=== PATIENT | female | born 1970 | race Caucasian/White ===

== ENCOUNTER 2018-03-11 11:43 | Emergency (ER) | payer BC ==
--- NOTE | 2018-03-11 12:45 | RAD REPORT ---
EXAM DESCRIPTION: RAD - Foot Left 3 View - 03/11/2018 12:35 pm CLINICAL HISTORY: PAIN COMPARISON: No comparisons FINDINGS: A single screw is present the proximal aspect of the first metatarsal. No evidence of hard gilliland loosening or infection. No acute fracture or dislocation seen. Tiny posterior calcaneal spur.
--- NOTE | 2018-03-11 13:00 | RAD REPORT ---
EXAM DESCRIPTION: CT - CTHCSPWOC - 03/11/2018 12:49 pm CLINICAL HISTORY: Trauma, head and neck injury. fall head injury COMPARISON: CT HEAD CSPINE MPR WO CONTRAST dated 11/07/2014 TECHNIQUE: Axial 5 mm thick images of the head were obtained. Axial 2 mm thick images of the cervical spine were obtained with sagittal and coronal reconstruction images generated and reviewed. All CT scans are performed using dose optimization technique as appropriate and may include automated exposure control or mA/KV adjustment according to patient size. FINDINGS: CT HEAD WITHOUT CONTRAST: No acute hemorrhage, hydrocephalus or extra-axial collection is identified.No areas of brain edema or midline shift. Moderate mucoperiosteal thickening affects the right maxillary antrum.The calvarium is intact. CT CERVICAL SPINE WITHOUT CONTRAST: No fracture or subluxation.No prevertebral soft tissues swelling is identified. IMPRESSION: No acute intracranial or cervical spine findings.
--- NOTE | 2018-03-11 13:14 | ER ---
Nurse's Notes [facility] Name: Patsy Danielle Age: 47 yrs Sex: Female : 1970 Arrival Date: 03/11/2018 Time: 11:47 Bed 17 Private MD: Colby Manuel E Diagnosis: Headache;Contusion of other part of head;Contusion of left foot Presentation: 03/11 11:58 Presenting complaint: Patient states: "I have chronic migraines, and I've had a aj1 migraine that I haven't been able to get rid of for about a week now. And on Monday I rolled my ankle and fell against the wall. I hit my shoulder and my face. It just occurred to me today that I passed out from the blow that I took" Bruising noted to left cheek and left shoulder. Reports vomiting 3-4 times daily for the past week. Transition of care: patient was not received from another setting of care. Onset of symptoms was February 04, 2018. Risk Assessment: Do you want to hurt yourself or someone else? Patient reports no desire to harm self or others. Initial Sepsis Screen: Does the patient meet any 2 criteria? No. Patient's initial sepsis screen is negative. Does the patient have a suspected source of infection? No. Patient's initial sepsis screen is negative. Care prior to arrival: None. 11:58 Method Of Arrival: Ambulatory [facility] 11:58 Acuity: VICK 3 aj1 Triage Assessment: 12:04 Headache History: The patient has had previous headaches and this one is different than aj1 previous episodes. General: Appears in no apparent distress. uncomfortable, Behavior is calm, cooperative, appropriate for age. Pain: Complains of pain in forehead, right sikhism and left sikhism Pain does not radiate. Pain currently is 9 out of 10 on a pain scale. Quality of pain is described as "grinding" Pain began March 06, Also complains of nausea. Neuro: Level of Consciousness is awake, alert, obeys commands, Oriented to person, place, time, situation, Speech is normal, Facial symmetry appears normal, Reports blurred vision dizziness, headache. Cardiovascular: Patient's skin is warm and dry. Respiratory: Airway is patent Respiratory effort is even, unlabored, Respiratory pattern is regular, symmetrical. 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 - Hysterectomy aj1 Historical: - Allergies: 12:04 Ceftriaxone Sodium; aj1 12:04 Cephalexin Monohydrate; aj1 12:04 Codeine; aj1 12:04 Erythromycin; aj1 12:04 hydroxyzine HCl; aj1 12:04 Hydroxyzine Pamoate; aj1 12:04 metoclopramide HCl; aj1 12:04 Morphine; aj1 12:04 Naproxen; aj1 12:04 Ondansetron HCl; aj1 12:04 Phenergan; aj1 12:04 QUINOLONES; aj1 12:04 Sulfa (Sulfonamide Antibiotics); aj1 12:04 SUMATRIPTAN; aj1 12:04 Sumatriptan Succinate; aj1 12:04 Tramadol HCl; aj1 12:04 [id number] Antimigraine Agents; aj1 - Home Meds: 12:04 Ambien 10 mg Oral tab 1 tab nightly [Active]; Esgic Oral three times a day [Active]; aj1 Norflex Oral 100 mg twice a day [Active]; Stadol NS Nasal 1 spray q4-6 hrs prn [Active]; Toprol XL 100 mg am and 150 mg pm Oral Tb24 [Active]; Valium 10 mg Oral tab 1 tab 3 times per day [Active]; - PMHx: 12:04 Angina; Anxiety; Back pain; CHF; Chronic pain; Migraines; palpitations; Pneumonia; aj1 - PSHx: 12:04 back surgery x4; Cholecystectomy; Hysterectomy; Appendectomy; Carpal Tunnel Repair; aj1 "surgery to get rid of migraines"; - Immunization history:: Flu vaccine is up to date. - Social history:: Smoking status: Patient uses tobacco products, smokes 1.5 packs per day, States that she quit one week ago. - Ebola Screening: : Patient denies travel to an Ebola-affected area in the 21 days before illness onset. Screenin:07 Abuse screen: Denies threats or abuse. Nutritional screening: No deficits noted. em Tuberculosis screening: No symptoms or risk factors identified. Fall Risk None identified. Assessment: 12:37 General: Appears in no apparent distress. uncomfortable, Behavior is cooperative, em Reports "having hx of migraines, fell on Monday and hit face and left shoulder, reports LOC x 2, just wanted to make sure it wasn't a normal migraine". Pain: Complains of pain in face and forehead Pain currently is 9 out of 10 on a pain scale. Neuro: Level of Consciousness is awake, alert, obeys commands, Oriented to person, place, time, situation, Moves all extremities. Gait is steady, Speech is normal, Facial symmetry appears normal, Intact. Cardiovascular: Capillary refill < 3 seconds Patient's skin is warm and dry. Respiratory: Airway is patent Respiratory effort is even, unlabored, Respiratory pattern is regular, symmetrical. GI: Abdomen is flat. Derm: Skin is intact, Bruising that is yellow, on left cheek and left shoulder. Injury Description: Head injury sustained to left cheek is closed, had loss of consciousness, was sustained 6 days ago. 13:00 Reassessment: Patient appears in no apparent distress at this time. I agree with above iw assessment by Rodolfo Tomlin LVN. Vital Signs: 12:04 BP 110 / 80; Pulse 65; Resp 18; Temp 98.1; Pulse Ox 98% on R/A; Weight 63.5 kg (R); aj1 Height 5 ft. 1 in. (154.94 cm) (R); Pain 9/10; 13:00 BP 107 / 75; Pulse 61; Resp 16; Pulse Ox 97% on R/A; em 12:04 Body Mass Index 26.45 (63.50 kg, 154.94 cm) aj1 ED Course: 11:47 Patient arrived in ED. mr 11:47 Colby Manuel MD is Private Physician. mr 12:01 Triage completed. aj1 12:04 Arm band placed on Patient placed in an exam room. aj1 12:10 Jaleel Green MD is Attending Physician. gs 12:16 Rodolfo Tomlin LVN is Primary Nurse. em 12:35 Foot Left 3 View XRAY In Process Unspecified. EDMS 12:49 CT Head C Spine In Process Unspecified. EDMS 12:50 CT completed. Patient tolerated procedure well. Patient moved back from CT. bq 13:07 Patient has correct armband on for positive identification. Bed in low position. Call em light in reach. 13:33 No provider procedures requiring assistance completed. Patient did not have IV access em during this emergency room visit. Administered Medications: No medications were administered Outcome: 13:13 Discharge ordered by . gs 13:33 Discharged to home ambulatory. em 13:33 Condition: good 13:33 Discharge instructions given to patient, Instructed on discharge instructions, follow up and referral plans. Demonstrated understanding of instructions, follow-up care. 13:35 Patient left the ED. em Signatures: Dispatcher [employer] Autumn Cowart RN RN aj1 Nuria Gama mr Eugenia, Rodolfo Worthy, COMMUNITY RECREATION PROGRAMMER COMMUNITY RECREATION PROGRAMMER em Dai Kirkland RN RN iw Starr, Gregory, MD MD gs
--- NOTE | 2018-03-11 13:14 | EDPHYS ---
Physician Documentation [facility] Name: Patsy Danielle Age: 47 yrs Sex: Female : 1970 Arrival Date: 03/11/2018 Time: 11:47 Bed 17 Private MD: Colby Manuel E ED Physician Jaleel Green HPI: 03/11 13:07 This 47 yrs old Female presents to ER via Ambulatory with complaints of gs Headache. 13:07 The patient complains of pain to the left christian. The patient describes the headache as gs throbbing. Onset: The symptoms/episode began/occurred 4 day(s) ago. Associated signs and symptoms: Pertinent negatives: altered mental status. Severity of symptoms: At its worst the pain was moderate, in the emergency department the pain is unchanged. Headache History: The patient has had previous headaches and this one is similar to previous episodes, and this one is more severe than previous episodes. The symptoms are alleviated by nothing. the symptoms are aggravated by nothing. The patient has experienced similar episodes in the past, chronically. 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 - Hysterectomy aj1 Historical: - Allergies: 12:04 Ceftriaxone Sodium; aj1 12:04 Cephalexin Monohydrate; aj1 12:04 Codeine; aj1 12:04 Erythromycin; aj1 12:04 hydroxyzine HCl; aj1 12:04 Hydroxyzine Pamoate; aj1 12:04 metoclopramide HCl; aj1 12:04 Morphine; aj1 12:04 Naproxen; aj1 12:04 Ondansetron HCl; aj1 12:04 Phenergan; aj1 12:04 QUINOLONES; aj1 12:04 Sulfa (Sulfonamide Antibiotics); aj1 12:04 SUMATRIPTAN; aj1 12:04 Sumatriptan Succinate; aj1 12:04 Tramadol HCl; aj1 12:04 [id number] Antimigraine Agents; aj1 - Home Meds: 12:04 Ambien 10 mg Oral tab 1 tab nightly [Active]; Esgic Oral three times a day [Active]; aj1 Norflex Oral 100 mg twice a day [Active]; Stadol NS Nasal 1 spray q4-6 hrs prn [Active]; Toprol XL 100 mg am and 150 mg pm Oral Tb24 [Active]; Valium 10 mg Oral tab 1 tab 3 times per day [Active]; - PMHx: 12:04 Angina; Anxiety; Back pain; CHF; Chronic pain; Migraines; palpitations; Pneumonia; aj1 - PSHx: 12:04 back surgery x4; Cholecystectomy; Hysterectomy; Appendectomy; Carpal Tunnel Repair; aj1 "surgery to get rid of migraines"; - Immunization history:: Flu vaccine is up to date. - Social history:: Smoking status: Patient uses tobacco products, smokes 1.5 packs per day, States that she quit one week ago. - Ebola Screening: : Patient denies travel to an Ebola-affected area in the 21 days before illness onset. ROS: 13:07 MS/extremity: Positive for fall hit face and hurt l foot, no loc. gs 13:07 All other systems are negative. Exam: 13:07 Eyes: Pupils equal round and reactive to light, extra-ocular motions intact. Lids and gs lashes normal. Conjunctiva and sclera are non-icteric and not injected. Cornea within normal limits. Periorbital areas with no swelling, redness, or edema. ENT: Nares patent. No nasal discharge, no septal abnormalities noted. Tympanic membranes are normal and external auditory canals are clear. Oropharynx with no redness, swelling, or masses, exudates, or evidence of obstruction, uvula midline. Mucous membranes moist. Neck: Trachea midline, no thyromegaly or masses palpated, and no cervical lymphadenopathy. Supple, full range of motion without nuchal rigidity, or vertebral point tenderness. No Meningismus. Chest/axilla: Normal chest wall appearance and motion. Nontender with no deformity. No lesions are appreciated. Cardiovascular: Regular rate and rhythm with a normal S1 and S2. No gallops, murmurs, or rubs. Normal PMI, no JVD. No pulse deficits. Respiratory: Lungs have equal breath sounds bilaterally, clear to auscultation and percussion. No rales, rhonchi or wheezes noted. No increased work of breathing, no retractions or nasal flaring. Abdomen/GI: Soft, non-tender, with normal bowel sounds. No distension or tympany. No guarding or rebound. No evidence of tenderness throughout. Back: No spinal tenderness. No costovertebral tenderness. Full range of motion. Skin: Warm, dry with normal turgor. Normal color with no rashes, no lesions, and no evidence of cellulitis. MS/ Extremity: Pulses equal, no cyanosis. Neurovascular intact. Full, normal range of motion. Neuro: Awake and alert, GCS 15, oriented to person, place, time, and situation. Cranial nerves II-XII grossly intact. Motor strength 5/5 in all extremities. Sensory grossly intact. Cerebellar exam normal. Normal gait. 13:07 Constitutional: The patient appears alert, awake. 13:07 Head/face: Noted is ecchymosis, that is mild, of the left cheek. 13:07 Musculoskeletal/extremity: Extremities: noted in the lateral side of left foot: ecchymosis, ROM: no acute changes, Pulses: are normal with no appreciated deficits. Vital Signs: 12:04 BP 110 / 80; Pulse 65; Resp 18; Temp 98.1; Pulse Ox 98% on R/A; Weight 63.5 kg (R); aj1 Height 5 ft. 1 in. (154.94 cm) (R); Pain 9/10; 13:00 BP 107 / 75; Pulse 61; Resp 16; Pulse Ox 97% on R/A; em 12:04 Body Mass Index 26.45 (63.50 kg, 154.94 cm) aj1 MDM: 12:18 Patient medically screened. 13:07 Differential diagnosis: migraine, head injury fracture. Data reviewed: vital signs, gs nurses notes. ED course: pt is allergic to standard migraine therapies has pain meds rx by pcp will refer to pcp for pain control non emergent medical condition. 03/11 12:19 Order name: CT Head C Spine; Complete Time: 13:01 03/11 12:19 Order name: Foot Left 3 View XRAY; Complete Time: 13:01 Administered Medications: No medications were administered Disposition: 03/11/18 13:13 Discharged to Home. Impression: Headache, Contusion of other part of head, Contusion of left foot. - Condition is Stable. - Discharge Instructions: General Headache Without Cause. - Medication Reconciliation Form, Thank You Letter, Antibiotic Education, Prescription Opioid Use form. - Follow up: Private Physician; When: 1 - 2 days; Reason: Re-evaluation by your physician. Signatures: Dispatcher [employer] Autumn Cowart RN RN aj1 Rodolfo Tomlin, LOCAL GOVERNMENT LEGISLATOR LOCAL GOVERNMENT LEGISLATOR em Jaleel Green MD MD gs Corrections: (The following items were deleted from the chart) 13:12 13:07 ED course: pt is allergic to standard migraine therapies has pain meds rx by dr louie tyler will refer to dr tyler for pain control non emergent medical condition. 13:35 13:13 03/11/2018 13:13 Discharged to Home. Impression: Headache; Contusion of other em part of head; Contusion of left foot. Condition is Stable. Forms are Medication Reconciliation Form, Thank You Letter, Antibiotic Education, Prescription Opioid Use. Follow up: Private Physician; When: 1 - 2 days; Reason: Re-evaluation by your physician.
[2018-03-11 13:46] VITALS: TEMP 98.1
[2018-03-11 13:47] VITALS: BP 107/75; O2SAT 97
== END 2018-03-11 13:35 | disposition home or self-care (01) ==
LOC: ER 11:43
DX: S00.83XA Contusion of other part of head, initial encounter (principal); S90.32XA Contusion of left foot, initial encounter; W18.39XA Other fall on same level, initial encounter; Y93.9 Activity, unspecified; Y92.9 Unspecified place or not applicable; Z88.1 Allergy status to other antibiotic agents; Z88.2 Allergy status to sulfonamides; Z88.3 Allergy status to other anti-infective agents; Z88.5 Allergy status to narcotic agent; Z88.8 Allergy status to other drugs, medicaments and biological substances; I50.9 Heart failure, unspecified; F41.9 Anxiety disorder, unspecified
CPT/HCPCS: 70450; 72125; 99284

== ENCOUNTER 2018-07-18 14:05 | Emergency (ER) | payer BC ==
[2018-07-18 16:29] LABS: Barbiturates POSITIVE (NEGATIVE); Benzodiazepines POSITIVE (NEGATIVE); Cocaine NEGATIVE (NEGATIVE); METHAMPHETAM NEGATIVE (NEGATIVE); Methadone NEGATIVE (NEGATIVE); Opiates NEGATIVE (NEGATIVE); Phencyclidine NEGATIVE (NEGATIVE); THC Cannibis NEGATIVE (NEGATIVE)
--- NOTE | 2018-07-18 16:42 | RAD REPORT ---
EXAM DESCRIPTION: CT - CTHCSPWOC - 07/18/2018 4:21 pm CLINICAL HISTORY: Trauma, head and neck injury. PAIN COMPARISON: Head C Spine Mpr Wo Con dated 03/11/2018; CT HEAD CSPINE MPR WO CONTRAST dated 11/07/2014 TECHNIQUE: Axial 5 mm thick images of the head were obtained. Axial 2 mm thick images of the cervical spine were obtained with sagittal and coronal reconstruction images generated and reviewed. All CT scans are performed using dose optimization technique as appropriate and may include automated exposure control or mA/KV adjustment according to patient size. FINDINGS: CT HEAD WITHOUT CONTRAST: No acute hemorrhage, hydrocephalus or extra-axial collection is identified.No areas of brain edema or midline shift. Moderate mucoperiosteal thickening involves the right maxillary antrum, right ethmoid air cells and r ight frontal sinus.The calvarium is intact. CT CERVICAL SPINE WITHOUT CONTRAST: No fracture or subluxation.No prevertebral soft tissues swelling is identified. IMPRESSION: No acute intracranial or cervical spine findings. Moderate right-sided sinus disease.
[2018-07-18 16:46] LABS: Urine Blood TRACE (NEG); Urine Glucose NEGATIVE (NEG); Urine Protein NEGATIVE (NEG); Urine Specific Gravity 1.025 (1.005-1.030); Urine pH 5.5 (5.0-7.0)
[2018-07-18 16:49] LABS: Urine Bacteria NONE SEEN /HPF (<20); Urine Culture Reflex Order NOT NEEDED; Urine RBC <5 /HPF (NONE SEEN)
--- NOTE | 2018-07-18 18:25 | ER ---
Nurse's Notes [facility] Name: Patsy Danielle Age: 47 yrs Sex: Female : 1970 Arrival Date: 07/18/2018 Time: 14:08 Bed 23 Private MD: Edy Suarez H Diagnosis: Acute sinusitis;Fall on same level, unspecified;Drug induced myotonia Presentation: 07/18 14:17 Presenting complaint: Patient states: Reports falling at home several times for past aj few days. Patient is awake and alert in triage. PEARRLA. Care prior to arrival: None. Mechanism of Injury: Fall from standing position. Trauma event details: Injury occurred in the [facility], Injury occurred: at home. Injury occurred: July 18, 2018. 14:17 Acuity: VICK 3 aj 14:17 Method Of Arrival: Wheelchair aj 17:26 Transition of care: patient was not received from another setting of care. Onset of tl3 symptoms. Risk Assessment: Do you want to hurt yourself or someone else?. Initial Sepsis Screen: Does the patient meet any 2 criteria? No. Patient's initial sepsis screen is negative. Does the patient have a suspected source of infection? No. Patient's initial sepsis screen is negative. 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 - Hysterectomy aj Trauma Activation: Not Applicable Physician: ED Physician; Name: ; Notified At: ; Arrived At: Physician: General Surgeon; Name: ; Notified At: ; Arrived At: Physician: Radiology; Name: ; Notified At: ; Arrived At: Physician: Respiratory; Name: ; Notified At: ; Arrived At: Physician: Lab; Name: ; Notified At: ; Arrived At: Historical: - Allergies: 14:21 Ceftriaxone Sodium; aj 14:21 Cephalexin Monohydrate; aj 14:21 Codeine; aj 14:21 Erythromycin; aj 14:21 hydroxyzine HCl; aj 14:21 Hydroxyzine Pamoate; aj 14:21 metoclopramide HCl; aj 14:21 Morphine; aj 14:21 Naproxen; aj 14:21 Ondansetron HCl; aj 14:21 Phenergan; aj 14:21 QUINOLONES; aj 14:21 Sulfa (Sulfonamide Antibiotics); aj 14:21 SUMATRIPTAN; aj 14:21 Sumatriptan Succinate; aj 14:21 Tramadol HCl; aj 14:21 [id number] Antimigraine Agents; aj - Home Meds: 14:21 Ambien 10 mg Oral tab 1 tab nightly [Active]; Esgic Oral three times a day [Active]; aj Norflex Oral 100 mg twice a day [Active]; Stadol NS Nasal 1 spray q4-6 hrs prn [Active]; Toprol XL 100 mg am and 150 mg pm Oral Tb24 [Active]; Valium 10 mg Oral tab 1 tab 3 times per day [Active]; - PMHx: 14:21 Angina; Anxiety; Back pain; CHF; Chronic pain; Migraines; palpitations; Pneumonia; aj - PSHx: 14:21 back surgery x4; Cholecystectomy; Hysterectomy; Appendectomy; Carpal Tunnel Repair; aj "surgery to get rid of migraines"; - Immunization history: Last tetanus immunization: - up to date. - Social history:: Smoking status: Patient/guardian denies using tobacco. - Ebola Screening: : Patient negative for fever greater than or equal to 101.5 degrees Fahrenheit, and additional compatible Ebola Virus Disease symptoms Patient denies exposure to infectious person Patient denies travel to an Ebola-affected area in the 21 days before illness onset No symptoms or risks identified at this time. Screenin:12 Abuse screen: Denies threats or abuse. Nutritional screening: No deficits noted. tl3 Tuberculosis screening: No symptoms or risk factors identified. Fall Risk Fall in past 12 months (25 points). Primary Survey: 14:21 A: Airway: patent. Breathing/Chest: Respiratory pattern: regular, Respiratory effort: aj spontaneous, unlabored, Breath sounds: clear, bilaterally. Circulation: Skin color: pink, Skin temperature: warm, dry. Disability Alert. Assessment: 14:17 General: Appears in no apparent distress. comfortable, Behavior is calm, cooperative, aj appropriate for age. Pain: Complains of pain in face and scalp. Neuro: Level of Consciousness is awake, alert, obeys commands, Oriented to person, place, time, situation, Appropriate for age Blow Down Helper are equal bilaterally Moves all extremities. Speech is normal, Facial symmetry appears normal, Pupils are PERRLA, Intact. Respiratory: Airway is patent Respiratory effort is even, unlabored, Respiratory pattern is regular, symmetrical. GI: Reports nausea. Derm: Skin is intact, is healthy with good turgor, Skin is pink, warm \\T\\ dry. normal. 17:23 Reassessment: Patient appears in no apparent distress at this time. No changes from tl3 previously documented assessment. Patient and/or family updated on plan of care and expected duration. Pain level reassessed. Patient is alert, oriented x 3, equal unlabored respirations, skin warm/dry/pink. pt placed in wheelchair, and in waiting room until parent comes and picks her up. Stressed letting admissions know when ride arrives and they will wheel her out to car, pt verbalized understanding. Vital Signs: 14:21 BP 98 / 76; Pulse 66; Resp 20; Temp 97.9; Pulse Ox 98% on R/A; Weight 68.04 kg; Height aj 5 ft. 1 in. (154.94 cm); 17:23 BP 117 / 65; Pulse 66; Resp 18; Pulse Ox 100% ; tl3 14:21 Body Mass Index 28.34 (68.04 kg, 154.94 cm) aj Asif Coma Score: 14:21 Eye Response: spontaneous(4). Verbal Response: oriented(5). Motor Response: obeys aj commands(6). Total: 15. Trauma Score (Adult): 14:21 Eye Response: spontaneous(1); Verbal Response: oriented(1); Motor Response: obeys aj commands(2); Systolic BP: > 89 mm Hg(4); Respiratory Rate: 10 to 29 per min(4); Asif Score: 15; Trauma Score: 12 ED Course: 14:08 Patient arrived in ED. mr 14:09 Edy Suarez DO is Private Physician. mr 14:19 Triage completed. aj 14:22 Arm band placed on left wrist. Patient placed in waiting room, in a wheelchair, Patient aj notified of wait time. 15:12 Viridiana Lehman, RN is Primary Nurse. tl3 15:12 Patient has correct armband on for positive identification. Bed in low position. Call tl3 light in reach. Side rails up X2. Pulse ox on. NIBP on. 15:12 No provider procedures requiring assistance completed. tl3 15:17 [facility] Dim[facility]C [facility]. snw 15:17 Elliott Lange MD is Attending Physician. snw 15:[address] via wheelchair. 16:23 CT Head C Spine In Process Unspecified. EDMS 17:23 Patient did not have IV access during this emergency room visit. tl3 17:54 Edy Suarez DO is Referral Physician. snw Administered Medications: No medications were administered Outcome: 17:23 Discharged to home via wheelchair. tl3 17:23 Condition: stable 17:23 Discharge instructions given to patient, Instructed on discharge instructions, follow up and referral plans. Demonstrated understanding of instructions, follow-up care, medications, Prescriptions given X 1. 17:55 Discharge ordered by MD. snw 17:55 Patient left the ED. tl3 Signatures: Dispatcher [employer] Kailey Rhodes, RN RN Brianna De Oliveira, JUDICIAL REPORTER-C JUDICIAL REPORTER-Elizabethw Jolie Gama ToreyValentin Viridiana Lehman, EVETTE RN tl3
--- NOTE | 2018-07-18 18:25 | EDPHYS ---
Physician Documentation [facility] Name: Patsy Danielle Age: 47 yrs Sex: Female : 1970 Arrival Date: 07/18/2018 Time: 14:08 Bed 23 Private MD: Edy Suarez H ED Physician Elliott Lange HPI: 07/18 17:04 This 47 yrs old Female presents to ER via Wheelchair with complaints of Fall snw Injury. 17:04 Details of fall: The patient fell from an upright position, while standing. Onset: The snw symptoms/episode began/occurred suddenly. Associated injuries: The patient sustained injury to the head, contusion. Severity of symptoms: At their worst the symptoms were moderate. The patient has experienced similar episodes in the past. It is unknown whether or not the patient has recently seen a physician. 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 - Hysterectomy aj Historical: - Allergies: 14:21 Ceftriaxone Sodium; aj 14:21 Cephalexin Monohydrate; aj 14:21 Codeine; aj 14:21 Erythromycin; aj 14:21 hydroxyzine HCl; aj 14:21 Hydroxyzine Pamoate; aj 14:21 metoclopramide HCl; aj 14:21 Morphine; aj 14:21 Naproxen; aj 14:21 Ondansetron HCl; aj 14:21 Phenergan; aj 14:21 QUINOLONES; aj 14:21 Sulfa (Sulfonamide Antibiotics); aj 14:21 SUMATRIPTAN; aj 14:21 Sumatriptan Succinate; aj 14:21 Tramadol HCl; aj 14:21 [id number] Antimigraine Agents; aj - Home Meds: 14:21 Ambien 10 mg Oral tab 1 tab nightly [Active]; Esgic Oral three times a day [Active]; aj Norflex Oral 100 mg twice a day [Active]; Stadol NS Nasal 1 spray q4-6 hrs prn [Active]; Toprol XL 100 mg am and 150 mg pm Oral Tb24 [Active]; Valium 10 mg Oral tab 1 tab 3 times per day [Active]; - PMHx: 14:21 Angina; Anxiety; Back pain; CHF; Chronic pain; Migraines; palpitations; Pneumonia; aj - PSHx: 14:21 back surgery x4; Cholecystectomy; Hysterectomy; Appendectomy; Carpal Tunnel Repair; aj "surgery to get rid of migraines"; - Immunization history: Last tetanus immunization: - up to date. - Social history:: Smoking status: Patient/guardian denies using tobacco. - Ebola Screening: : Patient negative for fever greater than or equal to 101.5 degrees Fahrenheit, and additional compatible Ebola Virus Disease symptoms Patient denies exposure to infectious person Patient denies travel to an Ebola-affected area in the 21 days before illness onset No symptoms or risks identified at this time. ROS: 17:03 Eyes: Negative for injury, pain, redness, and discharge, ENT: Negative for injury, snw pain, and discharge, Neck: Negative for injury, pain, and swelling, Cardiovascular: Negative for chest pain, palpitations, and edema, Respiratory: Negative for shortness of breath, cough, wheezing, and pleuritic chest pain, Abdomen/GI: Negative for abdominal pain, nausea, vomiting, diarrhea, and constipation, Back: Negative for injury and pain, : Negative for injury, bleeding, discharge, and swelling, Skin: Negative for injury, rash, and discoloration. 17:03 Constitutional: Positive for body aches. 17:03 MS/extremity: Positive for pain, of the right ankle. 17:03 Neuro: Positive for multiple falls, contusion to scalp. Exam: 17:03 Head/Face: Normocephalic, atraumatic. Eyes: Pupils equal round and reactive to light, snw extra-ocular motions intact. Lids and lashes normal. Conjunctiva and sclera are non-icteric and not injected. Cornea within normal limits. Periorbital areas with no swelling, redness, or edema. ENT: Nares patent. No nasal discharge, no septal abnormalities noted. Tympanic membranes are normal and external auditory canals are clear. Oropharynx with no redness, swelling, or masses, exudates, or evidence of obstruction, uvula midline. Mucous membranes moist. Neck: Trachea midline, no thyromegaly or masses palpated, and no cervical lymphadenopathy. Supple, full range of motion without nuchal rigidity, or vertebral point tenderness. No Meningismus. Chest/axilla: Normal chest wall appearance and motion. Nontender with no deformity. No lesions are appreciated. Cardiovascular: Regular rate and rhythm with a normal S1 and S2. No gallops, murmurs, or rubs. Normal PMI, no JVD. No pulse deficits. Respiratory: Lungs have equal breath sounds bilaterally, clear to auscultation and percussion. No rales, rhonchi or wheezes noted. No increased work of breathing, no retractions or nasal flaring. Abdomen/GI: Soft, non-tender, with normal bowel sounds. No distension or tympany. No guarding or rebound. No evidence of tenderness throughout. Back: No spinal tenderness. No costovertebral tenderness. Full range of motion. Skin: Warm, dry with normal turgor. Normal color with no rashes, no lesions, and no evidence of cellulitis. MS/ Extremity: Pulses equal, no cyanosis. Neurovascular intact. Full, normal range of motion. Neuro: Awake and alert, GCS 15, oriented to person, place, time, and situation. Cranial nerves II-XII grossly intact. Motor strength 5/5 in all extremities. Sensory grossly intact. Cerebellar exam normal. Normal gait. 17:03 Constitutional: The patient appears awake, unkempt, sluggish Vital Signs: 14:21 BP 98 / 76; Pulse 66; Resp 20; Temp 97.9; Pulse Ox 98% on R/A; Weight 68.04 kg; Height aj 5 ft. 1 in. (154.94 cm); 17:23 BP 117 / 65; Pulse 66; Resp 18; Pulse Ox 100% ; tl3 14:21 Body Mass Index 28.34 (68.04 kg, 154.94 cm) aj [place] Coma Score: 14:21 Eye Response: spontaneous(4). Verbal Response: oriented(5). Motor Response: obeys aj commands(6). Total: 15. Trauma Score (Adult): 14:21 Eye Response: spontaneous(1); Verbal Response: oriented(1); Motor Response: obeys aj commands(2); Systolic BP: > 89 mm Hg(4); Respiratory Rate: 10 to 29 per min(4); [place] Score: 15; Trauma Score: 12 MDM: 15:18 Patient medically screened. [facility] 07/18 15:47 Order name: Urine Drug Screen; Complete Time: 16:44 snw 07/18 15:47 Order name: Urine Microscopic Only; Complete Time: 16:53 snw 07/18 15:47 Order name: CT Head C Spine; Complete Time: 16:44 snw 07/18 15:47 Order name: Urine Test (obtain specimen); Complete Time: 16:00 snw 07/18 15:47 Order name: Urine Dipstick-Ancillary (obtain specimen); Complete Time: 16:00 snw 07/18 16:37 Order name: Urine Dipstick--Ancillary (enter results); Complete Time: 16:53 bd Administered Medications: No medications were administered Disposition: 07/19 13:54 Co-signature as Attending Physician, Elliott Lange MD I agree with the assessment and kdr plan of care. Disposition: 07/18/18 17:55 Discharged to Home. Impression: Acute sinusitis, Fall on same level, unspecified, Drug induced myotonia. - Condition is Stable. - Discharge Instructions: Head Injury, Adult, Fall Prevention in the Home, Sinusitis, Adult, What You Need To Know About Illegal Drug Use and Dependence, Youth, Fall Prevention in Hospitals, Adult. - Prescriptions for Clindamycin HCl 300 mg Oral Capsule - take 1 capsule by ORAL route every 6 hours for 10 days; 40 capsule. - Medication Reconciliation Form, Thank You Letter, Antibiotic Education, Prescription Opioid Use form. - Follow up: Edy Suarez DO; When: 2 - 3 days; Reason: Recheck today's complaints, Continuance of care, Re-evaluation by your physician. Signatures: Dispatcher [employer] Kailey Rhodes, Elliott Umana RN, MD MD [facility] Brianna Dimas, [employer] Viridiana Lehman RN RN tl3 Corrections: (The following items were deleted from the chart) 07/18 17:27 16:45 [facility] Order ordered. snw tl3 17:55 17:55 07/18/2018 17:55 Discharged to Home. Impression: Acute sinusitis; Fall on same tl3 level, unspecified; Drug induced myotonia. Condition is Stable. Discharge Instructions: Head Injury, Adult, Fall Prevention in the Home, Sinusitis, Adult, What You Need To Know About Illegal Drug Use and Dependence, Youth, Fall Prevention in Hospitals, Adult. Prescriptions for Clindamycin HCl 300 mg Oral Capsule - take 1 capsule by ORAL route every 6 hours for 10 days; 40 capsule. and Forms are Medication Reconciliation Form, Thank You Letter, Antibiotic Education, Prescription Opioid Use. Follow up: Edy Suarez; When: 2 - 3 days; Reason: Recheck today's complaints, Continuance of care, Re-evaluation by your physician. sonu
[2018-07-18 19:35] VITALS: TEMP 97.9
[2018-07-18 19:37] VITALS: BP 117/65; O2SAT 100
== END 2018-07-18 17:55 | disposition home or self-care (01) ==
LOC: ER 14:05
DX: J01.90 Acute sinusitis, unspecified (principal); W19.XXXA Unspecified fall, initial encounter; Y93.89 Activity, other specified; Y92.9 Unspecified place or not applicable; Z88.1 Allergy status to other antibiotic agents; Z88.2 Allergy status to sulfonamides; Z88.3 Allergy status to other anti-infective agents; Z88.5 Allergy status to narcotic agent; Z88.6 Allergy status to analgesic agent; Z88.8 Allergy status to other drugs, medicaments and biological substances; I50.9 Heart failure, unspecified; F41.9 Anxiety disorder, unspecified
CPT/HCPCS: 70450; 72125; 80307; 81003; 81015; 99284

== ENCOUNTER 2018-09-14 08:25 | Day surgery (SDC) | payer BC ==
--- NOTE | 2018-09-11 12:03 | EKG ---
Test Date: 2018-09-11 Test Time: 11:59:00 Oven Operator: JENNI MEASUREMENT RESULTS: Intervals: Rate: 59 VT: 116 QRSD: 76 QT: 394 QTc: 390 [place]: P: 38 VT: 116 QRS: 19 T: 43 INTERPRETIVE STATEMENTS: Sinus bradycardia Nonspecific ST abnormality Abnormal ECG Compared to ECG 03/06/2015 15:03:23 Possible ischemia no longer present ST (T wave) deviation still present Electronically Signed On 09-11-18 12:03:10 HOG ROOM SUPERVISOR by Gordon Laureano
[2018-09-14] MEDS: OXYMETAZOLINE HCL 0.05% 15ML NAS ONE ×4 (07:42→10:02)
[2018-09-14] MEDS ORDERED: Ringers Lactate 1,000 ML IV ONE ×2 (09:04→11:23)
[2018-09-14] MEDS ORDERED: DEXAMETHASONE 10 MG/ML VIAL ONE (09:18)
[2018-09-14] MEDS ORDERED: PROPOFOL 200 MG/20 ML VIAL IV ONE (09:18)
[2018-09-14] MEDS ORDERED: LIDOCAINE 2% MPF 5 ML VIAL ONE (09:18)
[2018-09-14] MEDS ORDERED: FENTANYL CITR 250 MCG/5 ML ONE (09:18)
[2018-09-14] MEDS ORDERED: MIDAZOLAM HCL 2 MG/2 ML INJ ONE ×2 (09:18)
[2018-09-14] MEDS ORDERED: ROCURONIUM 50 MG/5 ML VIAL IV ONE (09:18)
[2018-09-14] MEDS ORDERED: LIDOCAINE 1% W/EPI 1:100,000 MDV 50 ML VIAL ONE (09:30)
[2018-09-14] MEDS ORDERED: OXYMETAZOLINE HCL 0.05% 15ML NAS ONE ×3 (09:31→11:03)
[2018-09-14] MEDS ORDERED: NA CHLORIDE 0.9% 500 ML ONE (09:31)
[2018-09-14] MEDS ORDERED: FENTANYL CITR 100 MCG/2 ML ONE (09:35)
[2018-09-14] MEDS ORDERED: EPINEPHRINE/PF 1 MG/ML AMP ONE (11:18)
--- NOTE | 2018-09-14 11:59 | P.BOP ---
Preoperative diagnosis: CRS Postoperative diagnosis: same Primary procedure: NE with R frontal, R ant ethmoid, B maxillary antrostomy Estimated blood loss: 200ml Specimen: sinus content Anesthesia: General Complications: None Implants: Propel contour to R frontal and B max Fluids & blood products: crystalloid 1L Transferred to: Recovery Room Condition: Good
[2018-09-14] MEDS: MEPERIDINE HCL 50 MG/ML AMP ONE ×4 (12:18→12:39)
[2018-09-14 13:21] VITALS: BP 102/59; TEMP 97.4; O2SAT 99
[2018-09-14] MEDS ORDERED: HYDROCODONE/APAP 10/325 TAB ONE (13:36)
--- NOTE | 2018-09-15 01:41 | OP ---
Date of Procedure: 09/14/2018 Surgeon: Alexandrea Velasco MD Preoperative Diagnosis: Chronic rhinosinusitis. Postoperative Diagnosis: Chronic rhinosinusitis. Procedures: Bilateral nasal endoscopy with maxillary antrostomy, right anterior ethmoidectomy, and r ight frontal sinusotomy. Indication For Procedure: Ms. Danielle presented to the emergency room in March with headache and faci al pain, and a CT at that time confirmed right maxillary sinusitis. She subsequently presented to [facility] with gross purulence on a nasal endoscopy examination. A culture was taken, and the patient was treated with culture-directed antibiotics and was scheduled for post-treatment CT scan, but pres ented to the emergency room after a fall and had undergone a CT head and C-spine. The images were re viewed, and there was clearly persistent disease in the right frontal, right anterior ethmoid, and ri ght maxillary sinus. On the day of surgery, the patient had persistent symptoms and also complained of left nasal congestion, which was worsening. The risks, benefits, and alternatives to the procedur e were discussed with the patient who agreed to proceed. Description Of Procedure: The patient was brought to the operating room. She was placed under gener al anesthesia via oral endotracheal tube. The head of bed was turned 90 degrees. The nasal cavity w as packed with Afrin-soaked pledgets. A 0-degree endoscope was used to perform a nasal endoscopy, an d photo documentation was obtained. The middle meatus on the right side was significantly inflamed w ith edematous and very friable-appearing mucosa. The left side was likewise examined and was less se soraida, but did have apparent inflammation. The maxillary seeker was used to carefully palpate the unc inate process which was then removed using a backbiter and 90-degree Blakesley. The maxillary antros bob was held in lieu of initial ethmoid dissection. The curette straight 45- and 90-degree Blakesle y's were used to dissect the ethmoid. The anterior ethmoids were opened. However, there was moderat e-to-severe oozing in the middle meatus area, and this was packed for several minutes. Attention was turned to the left side. The left maxillary antrostomy was created by removal of the uncinate proce ss after palpation with the maxillary seeker. After removal of the uncinate process, the maxillary a ntrum was well visualized and was carefully suctioned. Packing was placed within the middle meatus, and attention was turned to the right side. A 30-degree endoscope was used to visualize the lateral nasal wall and opened up the maxillary sinus. The mucosa on the posterior aspect of the antrostomy w as inadvertently elevated off the bone, resulting in persistent oozing. This was again controlled wi th packing. Attention was turned to the anterior skull base in the region of the frontal recess. Du e to the degree of edema, anatomy was difficult to discern visually. The Entellus balloon device was placed under endoscopic visualization toward the frontal recess, and the lighted probe was used in o rder to identify the frontal recess. The frontal recess was then dilated sequentially, holding press ure on the balloon for approximately a minute to allow for decongestion and compression of the edemat ous mucosa. The balloon was then withdrawn and a 70-degree endoscope used to visualize the created p assage. Bony partitions from within the frontal recess were removed using the small [id number] Gi raffe forceps, resulting in a good and adequate opening into the frontal sinus. Attention was then r eturned to the maxillary sinus where additional edematous mucosa was removed using the microdebrider along the anterior and inferior aspects of the created antrostomy. Oozing was significantly improved after packing. A propel contour stent was placed under endoscopic guidance into the bilateral maxil rhonda antrostomies and into the right frontal recess. There was persistent oozing in the middle meatu s area, but it was more lateral and inferior than anticipated for arterial type bleeding. The area w as then packed with a small piece of Surgicel and then dressed with Gel-Foam. This appeared to contr ol the bleeding well. During suctioning of the nasal cavity and nasopharynx at the conclusion of the procedure, it was noted that there was a laceration on the superoposterior aspect of the middle turb inate, possibly created during prior suctioning. This was felt to be the likely source of the oozing , but appeared to be well controlled. The nasopharynx was then suctioned and the patient was returne d to care of Anesthesia for awakening and extubation in the operating room, which proceeded without d ifficulty. Complications: None. Implants: As dictated above. Disposition: The patient will be discharged home later today in the care of her family and follow up with Dr. Velasco in 10 days for evaluation. She is instructed to use saline irrigations and is give n written instructions as such. LEWIS Voice ID: [id number] Report ID: [id number]
== END 2018-09-14 14:02 | disposition home or self-care (01) ==
LOC: OR 08:25
PROVIDERS: ATTEND Otolaryngology
PROC: 09BS8ZZ Excision of Right Frontal Sinus, Via Natural or Artificial Opening Endoscopic (ICD-10-PCS; 2018-09-14)
PROC: 09BU8ZZ Excision of Right Ethmoid Sinus, Via Natural or Artificial Opening Endoscopic (ICD-10-PCS; principal; 2018-09-14 10:00)
DX: J32.0 Chronic maxillary sinusitis (principal); J32.1 Chronic frontal sinusitis; J32.2 Chronic ethmoidal sinusitis; Z87.891 Personal history of nicotine dependence; Z82.49 Family history of ischemic heart disease and other diseases of the circulatory system
CPT/HCPCS: 88304; 88311; 93005; J0171; J1100; J2175; J2250; J2704; J3010

== ENCOUNTER 2019-01-04 11:22 | Emergency (ER) | payer BC ==
--- OUTSIDE RECORDS SUMMARY | 2019-01-04 11:25 | XMS REPORT | Summary of Care ---
:1970 Author Name Kim Hayes M.A. Address [place] Physicians Unavailable , Care Team Providers Name Role Phone YOVANI Mims, SAI Unavailable Unavailable Kim Hayes M.A. Unavailable Unavailable PEARSON KALA GUTIERRES Unavailable Unavailable RADHA LAY MD Unavailable Unavailable YOVANI CASH [place], SAI Unavailable Unavailable Unavailable Unavailable Unavailable Functional Status Name Dates Details Functional status health issues are not documented Status: Name Dates Details Cognitive status health issues are not documented Status: Problems Name Dates Details Chronic ethmoidal sinusitis (473.2, J32.2) Status: Active Chronic maxillary sinusitis (473.0, J32.0) Status: Active Recurrent sinus infections (473.9, J32.9) Status: Active Rhinitis medicamentosa (472.0, J31.0) Status: Active Medications Name Dates Details Valium 10 MG Oral Tablet Refills: 0 Active Propranolol HCl POWD Refills: 0 Active Flexeril 10 MG TABS Refills: 0 Active CeleBREX CAPS Refills: 0 Active Zanaflex TABS Refills: 0 Active Esgic CAPS Refills: 0 Active Ambien 10 MG Oral Tablet Refills: 0 Active Stadol SOLN Refills: 0 Active Tylenol with Codeine #4 TABS Refills: 0 Active Nubain SOLN Refills: 0 Active Fluticasone Propionate 50 MCG/ACT Nasal Suspension USE 2 SPRAYS IN EACH NOSTRIL TWICE DAILY. Quantity: 2 Refills: 3 SAI PINA M.D. Start : 20-Dec-2018 Active 16 GM Bottle levoFLOXacin TABS Quantity: 2 Refills: 0 Active Allergies and Adverse Reactions Name Dates Details Levaquin (Allergy) Status: Active Minocin (Allergy) Status: Active morphine (Allergy) Status: Active sulfa (Allergy) Status: Active sumatriptan (Allergy) Status: Active Triptans Status: Active (Allergy) Past Medical History Name Dates Details History of anxiety (V11.8, Z86.59) Status: Resolved History of congestive heart failure (V12.59, Z86.79) Status: Resolved History of head injury (V15.59, Z87.828) Status: Resolved History of herpes simplex infection (V12.09, Z86.19) Status: Resolved History of migraine (V12.49, Z86.69) Status: Resolved History of post traumatic stress disorder (V11.8, Z86.59) Status: Resolved Procedures Procedure Dates Details History of Hysterectomy Completed History of Cholecystectomy Completed History of Appendectomy Completed History of Rhinoplasty Completed History of Tonsillectomy Completed History of Back Surgery Completed History of Knee Surgery Completed History of Simple Bunion Exostectomy (Silver Procedure) Completed History of Elbow Surgery Completed History of Carpal tunnel surgery Completed History of Breast Surgery Reduction Procedure Completed History of Neck Surgery Completed Immunization Name Dates Details Immunizations not documented Family History Name Dates Details Family history of malignant neoplasm (V16.9, Z80.9) Status: Active Family history of thyroid disease (V18.19, Z83.49) Status: Active Family history of heart disease (V17.49, Z82.49) Status: Active Name Dates Details Family history of thyroid disease (V18.19, Z83.49) Status: Active Family history of heart disease (V17.49, Z82.49) Status: Active Social History Name Dates Details - Status: Name Dates Details Former smoker Vital Signs Date Test Result Details [id number] BP Systolic 126 mm[Hg] Status: Comments: Location: LUE; Position: Sitting BP Diastolic 91 mm[Hg] Status: Comments: Location: LUE; Position: Sitting Height 61 in Status: Weight 163 lb Status: Body Mass Index Calculated 30.8 kg/m2 Status: Body Surface Area Calculated 1.73 m2 Status: Heart Rate 86 /min Status: Results Date Description Value Details Results not documented Plan of Care Name Dates Details Planned Observations Planned Goals not documented Planned Encounters Appointment; SAI PINA M.D. On: 30-Jan-2019 15:30 Instructions Name Dates Details Instructions not documented Encounters Appointment; SAI PINA M.D. On: 20-Dec-2018 10:15 Encounter Diagnosis: Problem not documented
[2019-01-04 12:06] LABS: Absolute Monocytes 0.4 K/uL (0.1-1.3); Absolute Neutrophil 3.4 K/uL (1.8-8.0); Basophils % 0.7 % (0-1.3); Eosinophils % 1.5 % (0-4.4); Hematocrit 43.7 % (36.0-45.0); Lymphocytes % 43.5 % (15.3-44.8); Monocytes % 6.3 % (3.3-12.3); RBC Red Blood Cell Count 4.87 M/uL (3.86-4.86)
[2019-01-04] MEDS ORDERED: NA CHLORIDE 0.9% 1,000 ML ONE (12:11)
[2019-01-04 12:29] LABS: ALT/SGPT 178 U/L (12-78); AST/SGOT 110 U/L (15-37); Albumin 3.8 g/dL (3.4-5.0); Alkaline Phosphatase 231 U/L (45-117); BUN Blood Urea Nitrogen 15 mg/dL (7-18); Bicarbonate 26 mmol/L (21-32); Bilirubin Direct < 0.1 mg/dL (0-0.2); Bilirubin Total 0.5 mg/dL (0.2-1.0); Glucose Level 127 mg/dL (74-106); Lipase 218 U/L (73-393); Potassium 4.1 mmol/L (3.5-5.1); Sodium Level 136 mmol/L (136-145)
--- NOTE | 2019-01-04 12:59 | RAD REPORT ---
EXAM DESCRIPTION: CTAbdomen Pelvis W Contrast - 01/04/2019 12:51 pm CLINICAL HISTORY: Abdominal pain. IV contrast only;Abd pain COMPARISON: CT ABD PELVIS W CONTRAST dated 12/04/2014; CT ABD PELVIS W CONTRAST dated 11/07/2014; CT ABD PELVIS W CONTRAST dated 06/19/2012 TECHNIQUE: Biphasic CT imaging of the abdomen and pelvis was performed with 100 ml non-ionic IV cont rast. All CT scans are performed using dose optimization technique as appropriate and may include automated exposure control or mA/KV adjustment according to patient size. FINDINGS: The lung bases are clear.Cholecystectomy clips. The liver, spleen, pancreas, adrenal glands and kidneys are within normal limits. No bowel obstruction, free air, free fluid or abscess. Mild sigmoid diverticulosis is present. Append ectomy. Postsurgical clips are present left inguinal region. No evidence of significant lymphadenopa thy. Postsurgical changes involve the lumbar spine with hardware in place. IMPRESSION: No acute intra-abdominal or pelvic finding. Sigmoid diverticulosis without diverticulitis. Postsurgical clips left inguinal region.
--- NOTE | 2019-01-04 13:11 | EDPHYS ---
Physician Documentation [facility] Name: Patsy Danielle Age: 48 yrs Sex: Female : 1970 Arrival Date: 01/04/2019 Time: 11:24 Bed 7 Private MD: Edy Saurez H ED Physician Tam Shore HPI: 01/04 11:41 This 48 yrs old Female presents to ER via Wheelchair with complaints of rn Abdominal Pain, Groin Pain. 11:41 The patient presents with abdominal pain in the left lower quadrant. Onset: The rn symptoms/episode began/occurred "months". The symptoms do not radiate. Associated signs and symptoms: Pertinent positives: constipation, nausea, Pertinent negatives: blood in stools, fever. The symptoms are described as achy, intermittent, sharp. Modifying factors: The symptoms are alleviated by nothing, the symptoms are aggravated by touching the area. Severity of pain: At its worst the pain was mild in the emergency department the pain is unchanged. The patient has experienced similar episodes in the past. Reports LLQ abd pain, intermittent for "months", reports concerned may be her hernia again, had hernia repair years ago, reports nausea and decreased appetite as well as constipation. No bulge or swelling over that area or groin. No blood in stool. . 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 - Hysterectomy iw Historical: - Allergies: 11:33 Ceftriaxone Sodium; sv 11:33 Cephalexin Monohydrate; sv 11:33 Codeine; sv 11:33 Erythromycin; sv 11:33 hydroxyzine HCl; sv 11:33 Hydroxyzine Pamoate; sv 11:33 metoclopramide HCl; sv 11:33 Morphine; sv 11:33 Naproxen; sv 11:33 Ondansetron HCl; sv 11:33 Phenergan; sv 11:33 QUINOLONES; sv 11:33 Sulfa (Sulfonamide Antibiotics); sv 11:33 SUMATRIPTAN; sv 11:33 Sumatriptan Succinate; sv 11:33 Tramadol HCl; sv 11:33 [id number] Antimigraine Agents; sv - PMHx: 11:33 Angina; Anxiety; Back pain; CHF; Chronic pain; Migraines; palpitations; Pneumonia; sv - PSHx: 11:33 Cholecystectomy; Hysterectomy; Appendectomy; Carpal Tunnel Repair; back surgery x4; sv "surgery to get rid of migraines"; - Immunization history:: Flu vaccine is up to date. - Social history:: Smoking status: Patient/guardian denies using tobacco. - Ebola Screening: : No symptoms or risks identified at this time. - Family history:: not pertinent. - Hospitalizations: : No recent hospitalization is reported. ROS: 11:41 Constitutional: Negative for fever, chills, and weight loss, Eyes: Negative for injury, rn pain, redness, and discharge, Cardiovascular: Negative for chest pain, palpitations, and edema, Respiratory: Negative for shortness of breath, cough, wheezing, and pleuritic chest pain, Abdomen/GI: Negative for vomiting, diarrhea MS/Extremity: Negative for injury and deformity, Skin: Negative for injury, rash, and discoloration, Neuro: Negative for headache, weakness, numbness, tingling, and seizure. Exam: 11:41 Constitutional: This is a well developed, well nourished patient who is awake, alert, rn and in no acute distress. Head/Face: Normocephalic, atraumatic. ENT: MMM Respiratory: No increased work of breathing, no retractions or nasal flaring. Abdomen/GI: soft, + LLQ tenderness, no rebound, no masses Skin: Warm, dry MS/ Extremity: Pulses equal, no cyanosis. Neurovascular intact. Full, normal range of motion. Equal circumference. Neuro: Awake and alert, GCS 15, oriented to person, place, time, and situation. Cranial nerves II-XII grossly intact. Motor strength 5/5 in all extremities. Sensory grossly intact. Cerebellar exam normal. Normal gait. Vital Signs: 11:33 BP 127 / 80; Pulse 83; Resp 20; Temp 97.9; Pulse Ox 100% ; Weight 72.57 kg; Height 5 sv ft. 1 in. (154.94 cm); Pain 9/10; 13:31 BP 126 / 87; Pulse 80; Resp 17; Pulse Ox 100% on R/A; Pain 9/10; sg 11:33 Body Mass Index 30.23 (72.57 kg, 154.94 cm) sv MDM: 11:25 Patient medically screened. rn 13:09 Differential diagnosis: diverticulitis, non-specific abd pain, Ureterolithiasis, rn urinary tract infection. Data reviewed: vital signs, nurses notes, lab test result(s), radiologic studies, CT scan, and as a result, I will discharge patient. Counseling: I had a detailed discussion with the patient and/or guardian regarding: the historical points, exam findings, and any diagnostic results supporting the discharge/admit diagnosis, lab results, radiology results, the need for outpatient follow up, to return to the emergency department if symptoms worsen or persist or if there are any questions or concerns that arise at home. Special discussion: Based on the patient's Hx, exam, and Dx evaluation, there is no indication for emergent surgery or inpatient Tx. It is understood by the patient/guardian that if the Sx's persist or worsen they need to return immediately for re-evaluation. I discussed with the patient/guardian in detail that at this point there is no indication for admission to the hospital. It is understood, however, that if the symptoms persist or worsen the patient needs to return immediately for re-evaluation. ED course: Pt ambulatory without difficulty, negative ct abdomen, neg urine, will dc home as abdominal pain.. 01/04 11:34 Order name: Basic Metabolic Panel; Complete Time: 12:42 rn 01/04 11:34 Order name: CBC with Diff; Complete Time: 12:42 rn 01/04 11:34 Order name: Hepatic Function; Complete Time: 12:42 rn 01/04 11:34 Order name: Lipase; Complete Time: 12:42 rn 01/04 12:47 Order name: Urine Dipstick--Ancillary (enter results) 01/04 12:47 Order name: Urine --Ancillary (enter results) 01/04 11:34 Order name: IV Saline Lock; Complete Time: 13:05 rn 01/04 11:34 Order name: Labs collected and sent; Complete Time: 12:03 rn 01/04 11:34 Order name: CT Abd/Pelvis - W/Contrast; Complete Time: 13:09 rn Administered Medications: 12:32 Drug: NS 0.9% 1000 ml Route: IV; Rate: 1000 ml; Site: left antecubital; iw 13:30 Follow up: IV Status: Completed infusion iw 13:44 Drug: [place] 10 mg-325 mg 1 tabs Route: PO; iw 13:55 Follow up: Response: No adverse reaction iw Disposition: 01/04/19 13:10 Discharged to Home. Impression: Lower abdominal pain, unspecified. - Condition is Stable. - Discharge Instructions: Abdominal Pain, Adult. - Medication Reconciliation Form, Thank You Letter, Antibiotic Education, Prescription Opioid Use form. - Follow up: Private Physician; When: As needed; Reason: Recheck today's complaints, Re-evaluation by your physician. - Problem is chronic. - Symptoms have improved. Signatures: Dispatcher [employer] EDAlexandrea Gilbert RN RN sv Dai Kirkland RN RN iw Tam Shore MD MD retail furniture sales: (The following items were deleted from the chart) 13:54 13:10 01/04/2019 13:10 Discharged to Home. Impression: Lower abdominal pain, iw unspecified. Condition is Stable. Forms are Medication Reconciliation Form, Thank You Letter, Antibiotic Education, Prescription Opioid Use. Follow up: Private Physician; When: As needed; Reason: Recheck today's complaints, Re-evaluation by your physician. Problem is chronic. Symptoms have improved. rn
--- NOTE | 2019-01-04 13:11 | ER ---
Nurse's Notes [facility] Name: Patsy Danielle Age: 48 yrs Sex: Female : 1970 Arrival Date: 01/04/2019 Time: 11:24 Bed 7 Private MD: Edy Suarez H Diagnosis: Lower abdominal pain, unspecified Presentation: 01/04 11:31 Presenting complaint: Patient states: left groin, LLQ pain, nausea x 3-4 days. Denies sv bloody stool. Transition of care: patient was not received from another setting of care. Onset of symptoms was January 2019. Initial Sepsis Screen: Does the patient meet any 2 criteria? No. Patient's initial sepsis screen is negative. Does the patient have a suspected source of infection? No. Patient's initial sepsis screen is negative. Care prior to arrival: None. 11:31 Method Of Arrival: Wheelchair sv 11:31 Acuity: VICK 3 sv 12:00 Risk Assessment: Do you want to hurt yourself or someone else? Patient reports no iw desire to harm self or others. Triage Assessment: 13:00 General: Appears in no apparent distress. Behavior is calm. Pain: Complains of pain in iw left lower quadrant. GI: Reports lower abdominal pain. 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 - Hysterectomy iw Historical: - Allergies: 11:33 Ceftriaxone Sodium; sv 11:33 Cephalexin Monohydrate; sv 11:33 Codeine; sv 11:33 Erythromycin; sv 11:33 hydroxyzine HCl; sv 11:33 Hydroxyzine Pamoate; sv 11:33 metoclopramide HCl; sv 11:33 Morphine; sv 11:33 Naproxen; sv 11:33 Ondansetron HCl; sv 11:33 Phenergan; sv 11:33 QUINOLONES; sv 11:33 Sulfa (Sulfonamide Antibiotics); sv 11:33 SUMATRIPTAN; sv 11:33 Sumatriptan Succinate; sv 11:33 Tramadol HCl; sv 11:33 [id number] Antimigraine Agents; sv - PMHx: 11:33 Angina; Anxiety; Back pain; CHF; Chronic pain; Migraines; palpitations; Pneumonia; sv - PSHx: 11:33 Cholecystectomy; Hysterectomy; Appendectomy; Carpal Tunnel Repair; back surgery x4; sv "surgery to get rid of migraines"; - Immunization history:: Flu vaccine is up to date. - Social history:: Smoking status: Patient/guardian denies using tobacco. - Ebola Screening: : No symptoms or risks identified at this time. - Family history:: not pertinent. - Hospitalizations: : No recent hospitalization is reported. Screenin:00 Abuse screen: Denies threats or abuse. Denies injuries from another. Nutritional sg screening: No deficits noted. Tuberculosis screening: No symptoms or risk factors identified. Never had TB. Fall Risk None identified. Assessment: 13:00 Pain: Complains of pain in left lower quadrant. GI: Bowel sounds present X 4 quads. Abd iw is soft X 4 quads. 13:29 Reassessment: requesting to speak with pt prior to dc to home, pt stated sg understanding, pt reports " lower abd cramping at this time, requesting medication for the symptoms, notified. 13:31 Reassessment: at bedside at this time, will continue to monitor. sg 13:51 Reassessment: Patient appears in no apparent distress at this time. Patient and/or iw family updated on plan of care and expected duration. Pain level reassessed. Patient is alert, oriented x 3, equal unlabored respirations, skin warm/dry/pink. Patient states feeling better. Patient states symptoms have improved. Vital Signs: 11:33 BP 127 / 80; Pulse 83; Resp 20; Temp 97.9; Pulse Ox 100% ; Weight 72.57 kg; Height 5 sv ft. 1 in. (154.94 cm); Pain 9/10; 13:31 BP 126 / 87; Pulse 80; Resp 17; Pulse Ox 100% on R/A; Pain 9/10; sg 11:33 Body Mass Index 30.23 (72.57 kg, 154.94 cm) sv ED Course: 11:24 Patient arrived in ED. as 11:24 Edy Suarez DO is Private Physician. as 11:25 Tam Shore MD is Attending Physician. rn 11:32 Triage completed. sv 11:33 Arm band placed on. sv 11:39 Dai Kirkland, RN is Primary Nurse. iw 12:39 Inserted saline lock: 22 gauge in left antecubital area, using aseptic technique. iw Inserted by RENE Christianson. 12:48 CT completed. Patient tolerated procedure well. Patient moved to CT via wheelchair. Patient moved back from CT. 12:51 CT Abd/Pelvis - W/Contrast In Process Unspecified. EDMS 13:00 Patient has correct armband on for positive identification. iw 13:50 No provider procedures requiring assistance completed. IV discontinued, intact, iw bleeding controlled, No redness/swelling at site. Pressure dressing applied. Administered Medications: 12:32 Drug: NS 0.9% 1000 ml Route: IV; Rate: 1000 ml; Site: left antecubital; iw 13:30 Follow up: IV Status: Completed infusion iw 13:44 Drug: [place] 10 mg-325 mg 1 tabs Route: PO; iw 13:55 Follow up: Response: No adverse reaction iw Outcome: 13:10 Discharge ordered by . rn 13:51 Discharged to home ambulatory. iw 13:51 Condition: good 13:51 Discharge instructions given to patient, Instructed on discharge instructions, follow up and referral plans. Demonstrated understanding of instructions, follow-up care. 13:54 Patient left the ED. iw Signatures: Dispatcher [employer] EDMS Alexandrea Jesus RN RN sv Gay, Steven, RN RN sg Martinez, Amelia as Williams, Irene, RN RN iw Nieto, Roman, MD MD rn Warren, Shannon sw
[2019-01-04 13:50] LABS: Urine Blood NEGATIVE (NEG); Urine Glucose NEGATIVE (NEG); Urine Protein NEGATIVE (NEG)
[2019-01-04] MEDS ORDERED: HYDROCODONE/APAP 10/325 TAB ONE (13:56)
[2019-01-04 14:14] VITALS: BP 126/87; O2SAT 100
[2019-01-04 14:15] VITALS: TEMP 97.9
== END 2019-01-04 13:54 | disposition home or self-care (01) ==
LOC: ER 11:22
DX: R10.32 Left lower quadrant pain (principal); F41.9 Anxiety disorder, unspecified; I50.9 Heart failure, unspecified; Z88.6 Allergy status to analgesic agent; Z88.1 Allergy status to other antibiotic agents; Z88.5 Allergy status to narcotic agent; Z88.2 Allergy status to sulfonamides; Z88.8 Allergy status to other drugs, medicaments and biological substances
CPT/HCPCS: 36415; 74177; 80048; 80076; 81003; 81025; 83690; 85025; 96360; 99284; J7030; Q9967

== ENCOUNTER 2019-11-18 11:21 | Emergency (ER) | payer BC ==
--- OUTSIDE RECORDS SUMMARY | 2019-11-18 11:24 | XMS REPORT | Summary of Care ---
:1970 Author Name SAI PINA M.D. Address Unavailable Unavailable , Care Team Providers Name Role Phone YOVANI Mims, SAI Unavailable Unavailable LILI CONDE, KALA PATRICIO GUTIERRES Unavailable Unavailable RADHA LAY MD Unavailable Unavailable YOVANI CASH UT, SAI Unavailable Unavailable Unavailable Unavailable Unavailable Functional [...] 0 Active Nubain SOLN Refills: 0 Active levoFLOXacin TABS Quantity: 2 Refills: 0 Active Mupirocin Powder Mix 200 mg in 1 sinus rinse bottle. Irrigate 1/2 bottle each side twice a day. Quantity: 1 Refills: 5 YOVANI M.D., SAI Start : 11-Jan-2019 Active Qnasl 80 MCG/ACT Nasal Aerosol Solution INSTILL 2 SPRAY DAILY Quantity: 1 Refills: 3 YOVANI M.D., SAI Start : 21-Jan-2019 Active 10.6 GM Inhaler Penicillin V Potassium 500 MG Oral Tablet TAKE 1 TABLET TWICE DAILY UNTIL GONE. Quantity: 20 Refills: 0 YOVANI M.D., SAI Start : 31-Jan-2019 Active Allergies and Adverse Reactions Name Dates [...] smoker Vital Signs Date Test Result Details No Known Vitals to report Results Date Description Value Details Results not documented Plan of Care Name Dates Details Planned Observations Planned Goals not documented Planned Encounters Appointment; SAI PINA M.D. On: 06-Mar-2019 15:00 Interventions Provided Medication ChangesPenicillin V Potassium 500 MG Oral Tablet - Start Instructions Name Dates Details Instructions not documented Encounters Appointment; SAI PINA M.D. On: 20-Dec-2018 10:15 Encounter Diagnosis: Problem not documented
--- OUTSIDE RECORDS SUMMARY | 2019-11-18 11:24 | XMS REPORT ---
:1970 [facility] Address [address] [place] [address] Dr. Goodson [address] [place] [id number] Care Team Providers Name Role Phone Unavailable Unavailable Unavailable Problems This patient has no known problems. Allergies, Adverse Reactions, Alerts This patient has no known allergies or adverse reactions. Medications This patient has no known medications.
--- OUTSIDE RECORDS SUMMARY | 2019-11-18 11:25 | XMS REPORT | Summary of Care ---
:1970 Author Name SAI PINA M.D. Address Unavailable Unavailable , Care Team Providers Name Role Phone YOVANI Mims, SAI Unavailable Unavailable LILI CONDEKALA Unavailable Unavailable RADHA LAY MD Unavailable Unavailable YOVANI CASH UT, SAI Unavailable Unavailable Unavailable Unavailable Unavailable Functional Status Name Dates Details Functional status health issues are not documented Status: Name Dates Details Cognitive status health issues are not documented Status: Problems Name Dates Details Recurrent sinus infections (473.9, J32.9) Status: Active Rhinitis medicamentosa (472.0, J31.0) Status: Active Chronic ethmoidal sinusitis (473.2, J32.2) Status: Active Chronic maxillary sinusitis (473.0, J32.0) Status: Active Medications Name Dates Details Valium [...] a day. Quantity: 1 Refills: 5 YOVANI Mims, SAI Start : 11-Jan-2019 Active Qnasl 80 MCG/ACT Nasal Aerosol Solution INSTILL 2 SPRAY DAILY Quantity: 1 Refills: 3 YOVANI M.D., SAI Start : 21-Jan-2019 Active 10.6 GM Inhaler Penicillin V Potassium 500 MG Oral Tablet TAKE 1 TABLET TWICE DAILY UNTIL GONE. Quantity: 20 Refills: 0 YOVANI MRylie, SAI Start : 31-Jan-2019 Active Amoxicillin-Pot Clavulanate 875-125 MG Oral Tablet TAKE 1 TABLET TWICE DAILY UNTIL FINISHED. Quantity: 20 Refills: 0 YOVANI M.D., SAI Start : 06-Nov-2019 Active Mometasone Furoate 50 MCG/ACT Nasal Suspension USE 1 SPRAY IN EACH NOSTRIL TWICE DAILY. Quantity: 1 Refills: 10 YOVANI M.D., SAI Start : 06-Nov-2019 Active Allergies and Adverse Reactions Name Dates [...] Z86.59) Status: Resolved Procedures Procedure Dates Details [H] Culture Sinus w/GS Date: 06-Nov-2019 History of Hysterectomy Completed History of Cholecystectomy [...] Dates Details - Status: Name Dates Details Ex-smoker (finding) Vital Signs Date Test Result Details [id number] Systolic blood pressure 150 mm[Hg] Status: Comments: Location: E; Position: Sitting Diastolic blood pressure 103 mm[Hg] Status: Comments: Location: [facility]; Position : Sitting Body height 61 in Status: Weight 160 lb Status: Body mass index (BMI) [Ratio] 30.23 kg/m2 Status: Body surface area Derived from formula 1.72 m2 Status: Body temperature 97.8 f Status: Comments: Method: Oral Heart Rate 68 /min Status: Results Date Description Value Details Results not documented Plan of Care Name Dates Details Planned Observations Planned Goals not documented Planned Encounters Follow-up visit in 6 weeks Appointment; SAI PINA M.D. On: 18-Dec-2019 13:45 Interventions Provided Medication ChangesAmoxicillin-Pot Clavulanate 875-125 MG Oral Tablet - StartMometasone Furoate 50 MCG/ACT Nasal Suspension - StartLabs/Procedures/ Imaging[H] Culture Sinus w/GS; To Be Done: 06 Nov 2019Plan1. nasal endoscopy -& gt; pus in right sinus cavities still2. Cont saline irrigations 2x day3. Start mometasone 1 spray 2x day4. follow MicrogenDx results. Will start medicated saline irrigations after results available.5. Start augmentin x 10 day. Take probiotic to minimize GI issues6. RTC 6 weeks Medical Decision Making: CRSsNP s/ p iker mini FESS now with recurrent right sided sinus infections in pt with poor dentition and persistent teeth pain. She has since had an upper tooth extracted. Will start medicated saline irrigations and oral atbx. The patient confirms that consultation was verbally initiated by the specified requesting physician. Final recommendations will be communicated back to the requesting physician through the shared medical record or written communication (sent by fax or US mail) Instructions Name Dates Details Instructions not documented Encounters Appointment; SAI PINA M.D. On: 20-Dec-2018 10:15 Encounter Diagnosis: Problem not documented Appointment; SAI PINA M.D. On: 06-Nov-2019 15:30 Encounter Diagnosis: Problem not documented
--- OUTSIDE RECORDS SUMMARY | 2019-11-18 11:25 | XMS REPORT | Summary of Care ---
[...] a day. Quantity: 1 Refills: 5 YOVANI Grey.Sandy., SAI Start : 11-Jan-2019 Active Qnasl 80 MCG/ACT Nasal Aerosol Solution INSTILL 2 SPRAY DAILY Quantity: 1 Refills: 3 YOVANI M.D., SAI Start : 21-Jan-2019 Active 10.6 GM Inhaler Penicillin V Potassium 500 MG Oral Tablet TAKE 1 TABLET TWICE DAILY UNTIL GONE. Quantity: 20 Refills: 0 YOVANI Mims, SAI Start : 31-Jan-2019 Active Amoxicillin-Pot Clavulanate [...] (finding) Vital Signs Date Test Result Details [id number] Systolic blood pressure 150 mm[Hg] Status: Comments: Location: E; Position: Sitting Diastolic blood pressure 103 mm[Hg] Status: Comments: [place] [facility] [place] : [place] Body height 61 in [...] with poor dentition and persistent teeth pain. The patient confirms that consultation was verbally [...]
--- OUTSIDE RECORDS SUMMARY | 2019-11-18 11:25 | XMS REPORT | Summary of Care ---
[...] FINISHED. Quantity: 20 Refills: 0 YOVANI M.D., SIA Start : 06-Nov-2019 Active Mometasone Furoate 50 [...] (finding) Vital Signs Date Test Result Details [id number] Systolic blood pressure 150 mm[Hg] Status: Comments: Location: E; Position: Sitting Diastolic blood pressure 103 mm[Hg] Status: Comments: [place] [facility] [place] : Sitting Body height 61 in [...]
[2019-11-18] MEDS ORDERED: HYDROMORPHONE HCL 1 MG/ML INJ ONE ×2 (12:56→16:39)
--- NOTE | 2019-11-18 14:10 | EKG ---
Test Date: 2019-11-18 Test Time: 13:00:37 Library Services Coordinator: ELAN MEASUREMENT RESULTS: Intervals: Rate: 61 IL: 132 QRSD: 74 QT: 406 QTc: 408 [place]: P: 61 IL: 132 QRS: 6 T: 39 INTERPRETIVE STATEMENTS: Normal sinus rhythm ST abnormality, possible digitalis effect Abnormal ECG Compared to ECG 09/11/2018 11:59:00 Sinus bradycardia no longer present ST (T wave) deviation still present Electronically Signed On 11-18-19 14:10:03 CDT by Elijah Hadley
[2019-11-18 15:35] LABS: Absolute Lymphocytes (CBC) 3.6 K/uL (0.7-4.9); Basophils % 1.2 % (0-1.3); Hematocrit 40.4 % (36.0-45.0); Lymphocytes % 46.1 % (15.3-44.8); MPV 8.4 fL (7.6-11.3); RBC Red Blood Cell Count 4.44 M/uL (3.86-4.86)
[2019-11-18 15:39] LABS: Protime INR 0.97
[2019-11-18 15:54] LABS: ALT/SGPT 46 U/L (12-78); AST/SGOT 18 U/L (15-37); Albumin 3.7 g/dL (3.4-5.0); Alkaline Phosphatase 209 U/L (45-117); BUN Blood Urea Nitrogen 20 mg/dL (7-18); Bicarbonate 20 mmol/L (21-32); Bilirubin Direct 0.1 mg/dL (0-0.2); Bilirubin Total 0.3 mg/dL (0.2-1.0); Glucose Level 94 mg/dL (74-106); Magnesium 2.1 mg/dL (1.8-2.4); NT PRO-BNP 31 pg/mL (<125); Potassium 3.9 mmol/L (3.5-5.1); Protein, Total 7.5 g/dL (6.4-8.2); Sodium Level 142 mmol/L (136-145); Troponin (Emerg Dept Use Only) < 0.02 ng/mL (0.0-0.045)
--- NOTE | 2019-11-18 16:22 | ER ---
Nurse's Notes [facility] Name: Patsy Danielle Age: 49 yrs Sex: Female : 1970 Arrival Date: 11/18/2019 Time: 11:25 Bed 17 Private MD: Diagnosis: Sciatica, right side Presentation: 11/17 11:56 Chief complaint: Patient states: has lost 75% of right leg over past week, and is iw moving into her right leg, also has cramping down to knees and up to shoulder blades and chest pain from anxiety. Coronavirus screen: The patient has NOT traveled to a country currently being monitored by the [facility] within the last 14 days. Proceed with normal triage procedures. The patient has NOT had contact with any known and/or suspected case of coronavirus. Proceed with normal triage procedures. Ebola Screen: Patient negative for fever greater than or equal to 101.5 degrees Fahrenheit, and additional compatible Ebola Virus Disease symptoms Patient denies exposure to infectious person. Patient denies travel to an Ebola-affected area in the 21 days before illness onset. No symptoms or risks identified at this time. Initial Sepsis Screen: Does the patient meet any 2 criteria? No. Patient's initial sepsis screen is negative. Does the patient have a suspected source of infection? No. Patient's initial sepsis screen is negative. Risk Assessment: Do you want to hurt yourself or someone else? Patient reports no desire to harm self or others. 11:56 Method Of Arrival: Wheelchair iw 11:56 Acuity: VICK 3 iw 12:15 Onset of symptoms was November 18, 2019. 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 - Hysterectomy iw Historical: - Allergies: 11:58 Ceftriaxone Sodium; iw 11:58 Cephalexin Monohydrate; iw 11:58 Erythromycin; iw 11:58 Codeine; iw 11:58 hydroxyzine HCl; iw 11:58 Hydroxyzine Pamoate; iw 11:58 metoclopramide HCl; iw 11:58 Morphine; iw 11:58 Naproxen; iw 11:58 Ondansetron HCl; iw 11:58 Phenergan; iw 11:58 QUINOLONES; iw 11:58 Sulfa (Sulfonamide Antibiotics); iw 11:58 SUMATRIPTAN; iw 11:58 Sumatriptan Succinate; iw 11:58 Tramadol HCl; iw 11:58 [id number] Antimigraine Agents; iw - PMHx: 11:58 Angina; Anxiety; Back pain; CHF; Chronic pain; Migraines; Pneumonia; palpitations; iw - PSHx: 11:58 Cholecystectomy; Hysterectomy; Appendectomy; Carpal Tunnel Repair; back surgery x4; iw "surgery to get rid of migraines"; - Immunization history:: Adult Immunizations up to date. - Social history:: Smoking status: Patient/guardian denies using tobacco, the patient reports quitting approximately 2 years ago, Patient/guardian denies using alcohol, street drugs, The patient lives with spouse. - Family history:: not pertinent. Screenin:19 Abuse screen: Denies threats or abuse. Denies injuries from another. Nutritional ca1 screening: No deficits noted. Tuberculosis screening: No symptoms or risk factors identified. Fall Risk IV access (20 points). Gait- Impaired (20 pts.). Total Acosta Fall Scale indicates Low Risk Score (25-44 pts). Fall prevention measures have been instituted. Side Rails Up X 2 As available Patient and Family Educated on Fall Prevention Program and strategies. Assessment: 12:19 General: Appears in no apparent distress. comfortable, Behavior is calm, cooperative, ca1 appropriate for age. Pain: Complains of pain in low back area Pain radiates to shoulder blades, R and L lower abdomen. Neuro: Level of Consciousness is awake, alert, obeys commands, Oriented to person, place, time, situation, Appropriate for age. Cardiovascular: Heart tones S1 S2 present Capillary refill < 3 seconds. Respiratory: Airway is patent Respiratory effort is even, unlabored, Respiratory pattern is regular, symmetrical, Breath sounds are clear bilaterally. GI: Abdomen is round non-distended, Bowel sounds present X 4 quads. Abd is soft X 4 quads Abdomen is tender to palpation in right lower quadrant and left lower quadrant Reports diarrhea, nausea, vomiting. : No signs and/or symptoms were reported regarding the genitourinary system. EENT: No signs and/or symptoms were reported regarding the EENT system. Derm: Skin is intact, is healthy with good turgor, Skin is pink, warm \\T\\ dry. Derm: Musculoskeletal: Circulation, motion, and sensation intact. Capillary refill < 3 seconds. 12:19 Pain: Complains of pain in right leg. ca1 13:02 Reassessment: Patient appears in no apparent distress at this time. Patient and/or ca1 family updated on plan of care and expected duration. Pain level reassessed. Patient is alert, oriented x 3, equal unlabored respirations, skin warm/dry/pink. 14:05 Reassessment: Patient appears in no apparent distress at this time. Patient and/or ca1 family updated on plan of care and expected duration. Pain level reassessed. Patient is alert, oriented x 3, equal unlabored respirations, skin warm/dry/pink. Unable to start an IV at this time. Called lab for initial blood draw. Lab at bedside. 14:20 Reassessment: slab puller unsuccessful in drawing blood. She said they are going to send ca1 somebody else down here in the ER. Notified provider and Vo to give med IM. Pt refuses to get the pain med IM and suggested on doing IV on the foot. Notified provider, said okay. 15:21 Reassessment: Patient appears in no apparent distress at this time. Patient and/or ca1 family updated on plan of care and expected duration. Pain level reassessed. Patient is alert, oriented x 3, equal unlabored respirations, skin warm/dry/pink. site supervising technical operator at bedside to draw initial blood draw. 16:06 Reassessment: Patient appears in no apparent distress at this time. Patient is alert, ca1 oriented x 3, equal unlabored respirations, skin warm/dry/pink. Vital Signs: 11:56 BP 114 / 65; Pulse 71; Resp 18; Temp 98.1; Pulse Ox 96% on R/A; Weight 72.57 kg; Height iw 5 ft. 2 in. (157.48 cm); Pain 10/10; 13:00 BP 93 / 68; Pulse 59; Resp 17 S; Pulse Ox 100% on R/A; ca1 14:58 BP 112 / 87; Pulse 65; Resp 15 S; Pulse Ox 100% on R/A; ca1 15:21 BP 103 / 76; Pulse 63; Resp 16 S; Pulse Ox 100% on R/A; ca1 16:32 BP 107 / 75; Pulse 71; Resp 16 S; Pulse Ox 100% on R/A; ca1 11:56 Body Mass Index 29.26 (72.57 kg, 157.48 cm) iw ED Course: 11:25 Patient arrived in ED. fj1 11:58 Triage completed. iw 11:58 Arm band placed on. iw 12:14 Samson Rodney MD is Attending Physician. ma2 12:14 Archana Brothers, EVETTE is Primary Nurse. ca1 12:19 Patient has correct armband on for positive identification. Bed in low position. Call ca1 light in reach. Side rails up X 1. Pulse ox on. NIBP on. Warm blanket given. 13:05 EKG done, by pilot plant research technician. reviewed by Samson Rodney MD. at1 13:20 Missed attempt(s): 22 gauge in right antecubital area. by feed research technician. Bleeding controlled, ca1 band aid applied, catheter tip intact. 13:30 Missed attempt(s): 22 gauge in left antecubital area. by feed research technician. Bleeding controlled, ca1 band aid applied, catheter tip intact. 13:35 Missed attempt(s): 22 gauge in right forearm. Bleeding controlled, band aid applied, ca1 catheter tip intact. 13:45 Missed attempt(s): 22 gauge in right antecubital area. Bleeding controlled, band aid ca1 applied, catheter tip intact. 15:20 Inserted saline lock: 24 gauge in right wrist, using aseptic technique. ca1 15:40 Initial lab(s) drawn, by slab puller, sent to lab. ca1 16:41 No provider procedures requiring assistance completed. IV discontinued, intact, ca1 bleeding controlled, No redness/swelling at site. Pressure dressing applied. Administered Medications: 14:47 Drug: Dilaudid 1 mg {Note: given IM at R deltoid per provider.} Route: IVP; Site: Other;ca1 15:30 Follow up: Response: No adverse reaction; Pain is decreased; RASS: Alert and Calm (0) ca1 16:34 Drug: Dilaudid 1 mg {Note: rass 0.} Route: IVP; Site: right wrist; ca1 16:41 Follow up: Response: Medication administered at discharge.; RASS: Alert and Calm (0) ca1 Outcome: 16:21 Discharge ordered by . ma2 16:41 Discharged to home ambulatory, with family. ca1 16:41 Condition: stable 16:41 Discharge instructions given to patient, Instructed on discharge instructions, follow up and referral plans. Demonstrated understanding of instructions, follow-up care. 16:45 Patient left the ED. ca1 Signatures: Dai Kirkland RN RN iw Kailey Burch, metal model builder EKG Tat1 Samson Rodney MD MD ma2 Archana Brothers RN RN ca1 Miguel Tilley fj1 Corrections: (The following items were deleted from the chart) 16:06 15:21 Reassessment: Patient appears in no apparent distress at this time. Patient ca1 and/or family updated on plan of care and expected duration. Pain level reassessed. Patient is alert, oriented x 3, equal unlabored respirations, skin warm/dry/pink. site supervising technical operator at bedside to draw initial blood works ca1
--- NOTE | 2019-11-18 16:23 | EDPHYS ---
Physician Documentation [facility] Name: Patsy Danielle Age: 49 yrs Sex: Female : 1970 Arrival Date: 11/18/2019 Time: 11:25 Bed 17 Private MD: ED Physician Samson Rodney HPI: 11/17 13:02 This 49 yrs old Female presents to ER via Wheelchair with complaints of Low ma2 Back Pain, Anxiety, LIMITED MOBILITY AND USE OF RT LEG. 13:02 The patient presents with pain that is acute. The pain does not radiate. The problem ma2 was sustained when lifting. Associated signs and symptoms: Pertinent negatives: constipation, headache, incontinence. Severity of symptoms: At their worst the symptoms were very mild, in the emergency department the symptoms are unchanged. The patient has not experienced similar symptoms in the past. right sided lower back pain and left shoulder pain, left shoulder pain is constant for few days, . 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 - Hysterectomy iw Historical: - Allergies: 11:58 Ceftriaxone Sodium; iw 11:58 Cephalexin Monohydrate; iw 11:58 Erythromycin; iw 11:58 Codeine; iw 11:58 hydroxyzine HCl; iw 11:58 Hydroxyzine Pamoate; iw 11:58 metoclopramide HCl; iw 11:58 Morphine; iw 11:58 Naproxen; iw 11:58 Ondansetron HCl; iw 11:58 Phenergan; iw 11:58 QUINOLONES; iw 11:58 Sulfa (Sulfonamide Antibiotics); iw 11:58 SUMATRIPTAN; iw 11:58 Sumatriptan Succinate; iw 11:58 Tramadol HCl; iw 11:58 [id number] Antimigraine Agents; iw - PMHx: 11:58 Angina; Anxiety; Back pain; CHF; Chronic pain; Migraines; Pneumonia; palpitations; iw - PSHx: 11:58 Cholecystectomy; Hysterectomy; Appendectomy; Carpal Tunnel Repair; back surgery x4; iw "surgery to get rid of migraines"; - Immunization history:: Adult Immunizations up to date. - Social history:: Smoking status: Patient/guardian denies using tobacco, the patient reports quitting approximately 2 years ago, Patient/guardian denies using alcohol, street drugs, The patient lives with spouse. - Family history:: not pertinent. ROS: 13:02 Constitutional: Negative for fever, chills, and weight loss. ma2 13:02 All other systems are negative. Exam: 13:02 Constitutional: This is a well developed, well nourished patient who is awake, alert, ma2 and in no acute distress. Neck: Trachea midline, no thyromegaly or masses palpated, and no cervical lymphadenopathy. Supple, full range of motion without nuchal rigidity, or vertebral point tenderness. No Meningismus. Chest/axilla: left shoulder ttp and linited rom otherwise no effusion or warmth or redness, Normal chest wall appearance and motion. Nontender with no deformity. No lesions are appreciated. Cardiovascular: Regular rate and rhythm with a normal S1 and S2. No gallops, murmurs, or rubs. Normal PMI, no JVD. No pulse deficits. Respiratory: Lungs have equal breath sounds bilaterally, clear to auscultation and percussion. No rales, rhonchi or wheezes noted. No increased work of breathing, no retractions or nasal flaring. Abdomen/GI: Soft, non-tender, with normal bowel sounds. No distension or tympany. No guarding or rebound. No evidence of tenderness throughout. Back: ttp to right flank, No spinal tenderness. No costovertebral tenderness. Full range of motion. Skin: Warm, dry with normal turgor. Normal color with no rashes, no lesions, and no evidence of cellulitis. MS/ Extremity: Pulses equal, no cyanosis. Neurovascular intact. Full, normal range of motion. Neuro: Awake and alert, GCS 15, oriented to person, place, time, and situation. Cranial nerves II-XII grossly intact. Motor strength 5/5 in all extremities. Sensory grossly intact. Cerebellar exam normal. Normal gait. Vital Signs: 11:56 BP 114 / 65; Pulse 71; Resp 18; Temp 98.1; Pulse Ox 96% on R/A; Weight 72.57 kg; Height iw 5 ft. 2 in. (157.48 cm); Pain 10/10; 13:00 BP 93 / 68; Pulse 59; Resp 17 S; Pulse Ox 100% on R/A; ca1 14:58 BP 112 / 87; Pulse 65; Resp 15 S; Pulse Ox 100% on R/A; ca1 15:21 BP 103 / 76; Pulse 63; Resp 16 S; Pulse Ox 100% on R/A; ca1 16:32 BP 107 / 75; Pulse 71; Resp 16 S; Pulse Ox 100% on R/A; ca1 11:56 Body Mass Index 29.26 (72.57 kg, 157.48 cm) iw MDM: 12:14 Patient medically screened. ma2 13:02 Differential diagnosis: arthritis, strain, sciatica. Data reviewed: vital signs, nurses ma2 notes. Counseling: I had a detailed discussion with the patient and/or guardian regarding: the historical points, exam findings, and any diagnostic results supporting the discharge/admit diagnosis, the presence of at least one elevated blood pressure reading (>120/80) during this emergency department visit, the need for outpatient follow up. Response to treatment: the patient's symptoms have markedly improved after treatment. 11/17 12:48 Order name: Basic Metabolic Panel; Complete Time: 16:21 [facility] 11/17 12:48 Order name: CBC with Diff; Complete Time: 15:54 tx11/17 12:48 Order name: LFT's; Complete Time: 16:21 tx11/17 12:48 Order name: Magnesium; Complete Time: 16:21 tx11/17 12:48 Order name: NT PRO-BNP; Complete Time: 16:21 tx11/17 12:48 Order name: PT-INR; Complete Time: 16:21 11/17 12:48 Order name: Troponin (emerg Dept Use Only); Complete Time: 16:21 [facility] 11/17 12:48 Order name: EKG; Complete Time: 12:48 tx11/17 12:48 Order name: Cardiac monitoring; Complete Time: 14:05 tx11/17 12:48 Order name: EKG - Nurse/Tech; Complete Time: 14:05 [facility] 11/17 12:48 Order name: IV Saline Lock; Complete Time: 15:21 tx11/17 12:48 Order name: Labs collected and sent; Complete Time: 15:40 11/17 12:48 Order name: O2 Per Protocol; Complete Time: 14:05 [facility] 11/17 12:48 Order name: O2 Sat Monitoring; Complete Time: 14:05 tx11/17 15:06 Order name: IV: foot; Complete Time: 15:20 ma2 Administered Medications: 14:47 Drug: Dilaudid 1 mg {Note: given IM at R deltoid per provider.} Route: IVP; Site: Other;ca1 15:30 Follow up: Response: No adverse reaction; Pain is decreased; RASS: Alert and Calm (0) ca1 16:34 Drug: Dilaudid 1 mg {Note: rass 0.} Route: IVP; Site: right wrist; ca1 16:41 Follow up: Response: Medication administered at discharge.; RASS: Alert and Calm (0) ca1 Disposition: 11/18/19 16:21 Discharged to Home. Impression: Sciatica, right side. - Condition is Stable. - Discharge Instructions: Sciatica. - Medication Reconciliation Form, Thank You Letter, Antibiotic Education, Prescription Opioid Use form. - Follow up: Private Physician; When: Tomorrow; Reason: Continuance of care. Signatures: Dispatcher [employer] Dai Sharma RN RN Samson Rodney MD MD tx2 Archana Brothers RN RN ca1 Corrections: (The following items were deleted from the chart) 16:45 16:21 11/18/2019 16:21 Discharged to Home. Impression: Sciatica, right side. Condition ca1 is Stable. Forms are Medication Reconciliation Form, Thank You Letter, Antibiotic Education, Prescription Opioid Use. Follow up: Private Physician; When: Tomorrow; Reason: Continuance of care. [facility]
[2019-11-18 17:12] VITALS: TEMP 98.1
[2019-11-18 17:16] VITALS: O2SAT 100
[2019-11-18 17:19] VITALS: BP 107/75
== END 2019-11-18 16:45 | disposition home or self-care (01) ==
LOC: ER 11:21
DX: M54.31 Sciatica, right side (principal); Z87.891 Personal history of nicotine dependence; Z88.1 Allergy status to other antibiotic agents; Z88.2 Allergy status to sulfonamides; Z88.3 Allergy status to other anti-infective agents; Z88.5 Allergy status to narcotic agent; Z88.8 Allergy status to other drugs, medicaments and biological substances
CPT/HCPCS: 93005; 85025; 80048; 36415; 83735; 85610; 80076; 84484; 83880; 96374; 99284; J1170 ×2

== ENCOUNTER 2020-01-14 19:16 | Emergency (ER) | payer BC ==
--- OUTSIDE RECORDS SUMMARY | 2020-01-14 19:18 | XMS REPORT ---
:1970 Author Organization [facility] t Address [address] [place] [address] Care Team Providers Name Role Phone SAI PINA M.D. 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 infection History of History of Problem Resolve migraine migraine d Chronic Chronic Problem Active ethmoidal ethmoidal sinusitis sinusitis Chronic Chronic Problem Active maxillary maxillary sinusitis sinusitis Recurrent Recurrent Problem Active sinus sinus infections infections Rhinitis Rhinitis Problem Active medicamento medicamento [facility] History of History of Problem Resolve post post d traumatic traumatic stress stress disorder disorder Allergies, Adverse Reactions, Alerts Allergy Name Allergy Status Severity Reaction(s) Onset Inactive Treat ing Comments Type Date Date Clinician Levaquin Allergy Active to drug (finding) Minocin Allergy Active to drug (finding) morphine Allergy Active to drug (finding) sulfa Allergy Active to drug (finding) sumatriptan Allergy Active to drug (finding) Triptans Allergy Active to drug (finding) Medications Ordered Filled Start Stop Current Ordering Indication Dosage Frequency Signature Comments Components Medication Medication Date Date Medication? Clinician (SIG) Name Name Amoxicillin Amoxicillin Yes SAI Q0.5D TAKE 1 -Pot -Pot 3-04 YOVANI M.D. TABLET Clavulanate Clavulanate 00:00: TWICE 875-125 MG 875-125 MG 00 DAILY Oral Tablet Oral Tablet UNTIL FINISHED. Mometasone Mometasone Yes SAI Q0.5D USE 1 Furoate 50 Furoate 50 3-04 YOVANI M.D. SPRAY IN MCG/ACT MCG/ACT 00:00: EACH Nasal Nasal 00 NOSTRIL Suspension Suspension TWICE DAILY. Penicillin Penicillin Yes SAI Q0.5D TAKE 1 V Potassium V Potassium 5-30 YOVANI M.D. TAB LET 500 MG Oral 500 MG Oral 00:00: TWICE Tablet Tablet 00 DAILY UNTIL GONE. Qnasl 80 Qnasl 80 Yes SAI 2 QD INSTILL 2 MCG/ACT MCG/ACT 5-20 YOVANI M.D. SPRAY Nasal Nasal 00:00: DAILY Aerosol Aerosol 00 Solution Solution Mupirocin Mupirocin Yes SAI Mix 200 mg Powder Powder 5-10 YOVANI M.D. in 1 sinus 00:00: rinse 00 bottle. Irrigate 1/2 bottle each side twice a day. Valium 10 Valium 10 Yes MG Oral MG Oral Tablet Tablet Propranolol Propranolol Yes HCl POWD HCl POWD Flexeril 10 Flexeril 10 Yes MG TABS MG TABS CeleBREX CeleBREX Yes CAPS CAPS Zanaflex Zanaflex Yes TABS TABS Esgic CAPS Esgic CAPS Yes Ambien 10 Ambien 10 Yes MG Oral MG Oral Tablet Tablet Stadol SOLN Stadol SOLN Yes Tylenol Tylenol Yes with with Codeine #4 Codeine #4 TABS TABS Nubain SOLN Nubain SOLN Yes levoFLOXaci levoFLOXaci Yes n TABS n TABS Vital Signs Vital Name Observation Time Observation Value Comments Systolic blood pressure 2019-11-06 15:11:00 150 mm[Hg] Loca tion: [facility]O; Position: Anabella g Diastolic blood pressure 2019-11-06 15:11:00 103 mm[Hg] Loc ation: [facility]; Position: Anabella g Body height 2019-11-06 15:11:00 61 [in_us] Weight 2019-11-06 15:11:00 160 [lb_av] Body temperature 2019-11-06 15:11:00 97.8 [degF] Method: Ora l Heart Rate 2019-11-06 15:11:00 68 /min BP Systolic 2018-12-20 10:34:00 126 mm[Hg] Location: [facility]; Position: Anabella g BP Diastolic 2018-12-20 10:34:00 91 mm[Hg] Location: [facility]; Position: Sittin g Height 2018-12-20 10:34:00 61 [in_us] Weight 2018-12-20 10:34:00 163 [lb_av] Heart Rate 2018-12-20 10:34:00 86 /min Procedures and Interventions Procedure Date / Time Performed Performing Clinici an [H] Culture Sinus w/GS 2019-11-06 00:00:00 History of Hysterectomy History of Cholecystectomy History of Appendectomy History of Rhinoplasty History of Tonsillectomy History of Back Surgery History of Knee Surgery History of Simple Bunion Exostectomy (Silver Procedure) History of Elbow Surgery History of Carpal tunnel surgery History of Breast Surgery Reduction Procedure History of Neck Surgery Encounters Start End Encounter Admission Attending Care Care Department En counter Date/Time Date/Time Type Type Clinicians Facility ID 2019-11-06 2019-11-06 Appointmen ERIK PINA Otorhinolaryngo [id number] 15:30:00 15:30:00 t; SAI PINA M.D. [facility] 2018-12-20 2018-12-20 Appointmen ERIK PINA Otorhinolaryngo [id number] 10:15:00 10:15:00 t; SAI PINA M.D. [facility]
--- OUTSIDE RECORDS SUMMARY | 2020-01-14 19:20 | XMS REPORT | Summary of Care ---
:1970 Author Name SAI PINA M.D. Address Unavailable Unavailable , Care Team Providers Name Role Phone YOVANI Mims, SAI Unavailable Unavailable PEARSON KALA Unavailable Unavailable RADHA LAY MD Unavailable Unavailable YOVANI CASH UT, SAI Unavailable Unavailable Unavailable Unavailable Unavailable Functional Status Name Dates Details Functional status health issues are not documented Status: Name Dates Details Cognitive status health issues are not documented Status: Problems Name Dates Details Recurrent sinus infections (473.9, J32.9) Status: Active Rhinitis medicamentosa (472.0, J31.0) St atus: Active Chronic ethmoidal sinusitis (473.2, J32.2) Status: [...] YOVANI M.D., SAI Start : 31-Jan-2019 Active Amoxicillin-Pot Clavulanate [...] Dates Details History of anxiety (V11.8, Z86.59) Statu s: Resolved History of congestive heart failure (V12.59, Z86.79) Status: Resolved History of head injury (V15.59, Z87.828) Status: Resolved History of herpes simplex infection (V12.09, Z86.19) Status: Resolved History of migraine (V12.49, Z86.69) Sta tus: Resolved History of post traumatic stress disorder [...] Surgery Completed History of Carpal tunnel surgery Complet ed History of Breast Surgery Reduction Procedure Completed [...] (finding) Vital Signs Date Test Result Details No Known Vitals to report Results Date Description Value Details Results not documented Plan of Care Name Dates Details Planned Observations Planned Goals not documented Instructions Name Dates Details Instructions not documented Encounters Appointment; SAI PINA M.D. On: 20-Dec-2018 10:15 Encounter Diagnosis: Problem not documented Appointment; SAI PINA M.D. On: 06-Nov-2019 15:30 Encounter Diagnosis: Problem not documented
[2020-01-14] MEDS ORDERED: MAGNE/ALUM HYDROXD 30 ML UCUP ONE (20:28)
[2020-01-14] MEDS ORDERED: LIDOCAINE VISCOUS 2% SOLN 15 ML UDC ONE (20:28)
[2020-01-14] MEDS ORDERED: MEPERIDINE HCL 25 MG/0.5 ML ONE ×3 (20:28→22:23)
[2020-01-14] MEDS ORDERED: PANTOPRAZOLE 40 MG INJ ONE (20:28)
[2020-01-14 20:54] LABS: Basophils % 1.3 % (0-1.3); Hematocrit 40.9 % (36.0-45.0); Lymphocytes % 46.7 % (15.3-44.8); MPV 8.2 fL (7.6-11.3); RBC Red Blood Cell Count 4.48 M/uL (3.86-4.86)
[2020-01-14 21:07] LABS: Albumin 3.8 g/dL (3.4-5.0); Bilirubin Direct 0.1 mg/dL (0-0.2); Bilirubin Total 0.3 mg/dL (0.2-1.0); Potassium 3.6 mmol/L (3.5-5.1); Protein, Total 8.3 g/dL (6.4-8.2)
--- NOTE | 2020-01-14 21:36 | RAD REPORT ---
EXAM DESCRIPTION: CT - Abdomen Pelvis W Contrast - 01/14/2020 9:25 pm CLINICAL HISTORY: upper abd pain, hematemesis COMPARISON: Abdomen Pelvis W Contrast dated 01/04/2019 TECHNIQUE: Biphasic, helical CT imaging of the abdomen and pelvis was performed following 100 ml non -ionic IV contrast. No oral contrast given. All CT scans are performed using dose optimization technique as appropriate and may include automated exposure control or mA/KV adjustment according to patient size. FINDINGS: No suspicious findings in the lung bases. The liver, spleen, and pancreas show no suspicious findings. Cholecystectomy clips are present. No bi liary tree dilatation. Symmetric renal function is seen with no hydronephrosis or suspicious renal mass. No pyelonephritis o r acute parenchymal process. No bladder abnormalities. No adrenal abnormalities. Distal esophagus and GE junction show no suspicious finding. No gastric wall thickening or mass. Smal l bowel loops are not dilated. There are several fluid-filled small bowel loops. Fluid is present in the right-side of the colon. No colon dilatation, wall thickening or mass identified. No free air, f ree fluid or inflammatory stranding. No hernia, mass or bulky lymphadenopathy. Left inguinal hernia repair changes are present. Additional surgical clips are seen along the anterior abdominal wall. No acute bone findings seen. Surgical fusion changes and hardware in place L3-S1. Prominent degenerat holli disc disease present at L2-3. Fusion hardware spans each SI joint. IMPRESSION: No obstruction, free air or surgically emergent finding. Fluid-filled small bowel loops could indicate a nonspecific enteritis. Nonacute findings detailed in the body of the report.
--- NOTE | 2020-01-14 21:53 | ER ---
Nurse's Notes [facility] Name: Patsy Danielle Age: 49 yrs Sex: Female : 1970 Arrival Date: 01/14/2020 Time: 19:19 Bed 19 Private MD: Diagnosis: Hematemesis;Enteritis Presentation: 01/13 19:21 Chief complaint: Patient states: "threw up blood about 1730 today. Abdominal pain since ca1 yesterday". Reports nausea, diarrhea and constipation. Denies fever. Coronavirus screen: Proceed with normal triage. Patient denies a cough. Patient denies shortness of breath or difficulty breathing. Patient denies measured and/or subjective temperature greater than 100.4F prior to today's visit. Patient denies travel on a cruise ship or to a country the [facility] currently lists as an affected area. Patient denies contact with known and/or suspected case of COVID-19. Ebola Screen: Patient negative for fever greater than or equal to 101.5 degrees Fahrenheit, and additional compatible Ebola Virus Disease symptoms Patient denies exposure to infectious person. Patient denies travel to an Ebola-affected area in the 21 days before illness onset. No symptoms or risks identified at this time. Initial Sepsis Screen: Does the patient meet any 2 criteria? No. Patient's initial sepsis screen is negative. Does the patient have a suspected source of infection? No. Patient's initial sepsis screen is negative. Risk Assessment: Do you want to hurt yourself or someone else? Patient reports no desire to harm self or others. Onset of symptoms was January 14, 2020. 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 LMP N/A - Hysterectomy ca1 Historical: - Allergies: 19:25 Ceftriaxone Sodium; ca1 19:25 Cephalexin Monohydrate; ca1 19:25 Codeine; ca1 19:25 Erythromycin; ca1 19:25 hydroxyzine HCl; ca1 19:25 Hydroxyzine Pamoate; ca1 19:25 metoclopramide HCl; ca1 19:25 Morphine; ca1 19:25 Naproxen; ca1 19:25 Ondansetron HCl; ca1 19:25 Phenergan; ca1 19:25 QUINOLONES; ca1 19:25 Sulfa (Sulfonamide Antibiotics); ca1 19:25 SUMATRIPTAN; ca1 19:25 Sumatriptan Succinate; ca1 19:25 Tramadol HCl; ca1 19:25 [id number] Antimigraine Agents; ca1 - Home Meds: 19:25 Ambien 10 mg Oral tab 1 tab nightly [Active]; Esgic Oral three times a day [Active]; ca1 Stadol NS Nasal 1 spray q4-6 hrs prn [Active]; Valium 10 mg Oral tab 1 tab 4 times per day [Active]; Flexeril Oral [Active]; - PMHx: 19:25 Angina; Anxiety; Back pain; CHF; Chronic pain; Migraines; palpitations; Pneumonia; ca1 - PSHx: 19:25 Cholecystectomy; Hysterectomy; Appendectomy; Carpal Tunnel Repair; back surgery x4; ca1 "surgery to get rid of migraines"; - Immunization history:: Adult Immunizations up to date. - Social history:: Smoking status: Patient denies any tobacco usage or history of. - Family history:: not pertinent. - Hospitalizations: : No recent hospitalization is reported. Screenin:40 Abuse screen: Denies threats or abuse. Denies injuries from another. Nutritional wh screening: No deficits noted. Tuberculosis screening: No symptoms or risk factors identified. Fall Risk None identified. Assessment: 19:40 General: Appears in no apparent distress. Behavior is calm, cooperative, appropriate wh for age. Pain: Complains of pain in right upper quadrant and right lower quadrant and epigastric area Pain does not radiate. Pain currently is 8 out of 10 on a pain scale. Quality of pain is described as sharp, Pain began 2-3 days ago. Neuro: Level of Consciousness is awake, alert, obeys commands, Oriented to person, place, time, situation, Appropriate for age. Cardiovascular: Heart tones S1 S2. Respiratory: Airway is patent Respiratory effort is even, unlabored, Respiratory pattern is regular, symmetrical, Breath sounds are clear bilaterally. GI: Abdomen is flat, non-distended, Bowel sounds present X 4 quads. Abd is soft. : No signs and/or symptoms were reported regarding the genitourinary system. EENT: No signs and/or symptoms were reported regarding the EENT system. Derm: Skin is intact, is healthy with good turgor, Skin is pink, warm \\T\\ dry. normal. Musculoskeletal: Circulation, motion, and sensation intact. 20:43 Reassessment: Patient appears in no apparent distress at this time. No changes from previously documented assessment. Patient and/or family updated on plan of care and expected duration. Pain level reassessed. Patient is alert, oriented x 3, equal unlabored respirations, skin warm/dry/pink. 22:15 Reassessment: Patient appears in no apparent distress at this time. No changes from previously documented assessment. Patient and/or family updated on plan of care and expected duration. Pain level reassessed. Patient is alert, oriented x 3, equal unlabored respirations, skin warm/dry/pink. Patient states feeling better. Patient states symptoms have improved. Vital Signs: 19:21 BP 119 / 84; Pulse 76; Resp 16 S; Temp 97.3(TE); Pulse Ox 100% on R/A; Weight 72.57 kg ca1 (R); Height 5 ft. 1 in. (154.94 cm) (R); Pain 8/10; 20:43 BP 143 / 90; Pulse 76; Resp 18; Pulse Ox 99% on R/A; wh 22:15 BP 127 / 83; Pulse 74; Resp 18; Pulse Ox 99% on R/A; wh 19:21 Body Mass Index 30.23 (72.57 kg, 154.94 cm) ca1 ED Course: 19:19 Patient arrived in ED. cl3 19:23 Triage completed. ca1 19:25 Arm band placed on right wrist. ca1 19:33 Tam Shore MD is Attending Physician. rn 19:43 Prashant Mora is Primary Nurse. wh 19:45 Patient has correct armband on for positive identification. Bed in low position. Call light in reach. Side rails up X 1. Pulse ox on. NIBP on. 20:03 Missed attempt(s): 24 gauge in right forearm. Bleeding controlled, band aid applied, ds4 catheter tip intact. 20:38 Initial lab(s) drawn, by me, sent to lab. Accessed Inserted a PowerGlide Midline Pro 20 sg G 10cm to RUE, blood specimen obtained and sent to lab, pt medicated. 21:26 CT Abd/Pelvis - IV Contrast Only In Process Unspecified. EDMS 21:51 Brenda Cain MD is Referral Physician. rn 22:30 No provider procedures requiring assistance completed. IV discontinued, intact, wh bleeding controlled, No redness/swelling at site. Administered Medications: 20:28 Drug: GI Cocktail without - (Maalox Suspension 30 ml, Lidocaine Liquid 2 % 15 wh ml) Route: PO; 21:50 Follow up: Response: No adverse reaction 20:30 Drug: ProTONIX 40 mg Route: IVP; Site: right upper arm; 21:51 Follow up: Response: No adverse reaction 20:32 Drug: Demerol 25 mg {Note: RASS 0.} Route: IVP; Site: right upper arm; 21:51 Follow up: Response: No adverse reaction; Pain is decreased; RASS: Alert and Calm (0) 21:37 Drug: Demerol 25 mg {Note: RASS - 0.} Route: IVP; Site: right antecubital; ca1 21:51 Follow up: Response: No adverse reaction; Pain is unchanged, physician notified; RASS: Alert and Calm (0) 22:21 Drug: Demerol 25 mg {Note: RASS 0.} Route: IVP; Site: right upper arm; 22:35 Follow up: Response: No adverse reaction; Pain is decreased; RASS: Alert and Calm (0) 22:23 Drug: Phenergan 12.5 mg Route: IVP; Site: right upper arm; 22:35 Follow up: Response: No adverse reaction; Nausea is decreased Outcome: 21:52 Discharge ordered by . rn 22:30 Discharged to home ambulatory. 22:30 Condition: stable 22:30 Discharge instructions given to patient, Instructed on discharge instructions, follow up and referral plans. medication usage, POC Demonstrated understanding of instructions, follow-up care, medications, POC Prescriptions given X 1. 22:32 Patient left the ED. Signatures: Dispatcher [employer] EDMS Anirudh Hdez RN RN sg Nieto, Roman, MD MD rn Swanson, Donovan ds4 Prashant Mora Archana Brothers RN RN ca1 Luis Carlos Pena cl3 Corrections: (The following items were deleted from the chart) 01/14 03:48 05 20:38 Accessed Inserted a PowerGlide Midline Pro 20 G to RUE, blood specimen sg obtained and sent to lab, pt medicated. sg
--- NOTE | 2020-01-14 21:53 | EDPHYS ---
Physician Documentation [facility] Name: Patsy Danielle Age: 49 yrs Sex: Female : 1970 Arrival Date: 01/14/2020 Time: 19:19 Bed 19 Private MD: ED Physician Tma Shore HPI: 01/13 19:40 This 49 yrs old Female presents to ER via Ambulatory with complaints of rn Abdominal Pain, Vomiting Blood. 19:40 The patient presents to the emergency department vomiting blood, a small amount, bright rn red. Onset: The symptoms/episode began/occurred just prior to arrival. Abdominal pain: described as crampy, intermittent, located in the epigastric area, that does not radiate. Modifying factors: The symptoms are alleviated by nothing, the symptoms are aggravated by food, pressure. Associated signs and symptoms: Pertinent positives: anorexia, Pertinent negatives: chest pain, fever, shortness of breath, syncope. Severity of symptoms: At their worst the symptoms were mild in the emergency department the symptoms have improved. The patient has not experienced similar symptoms in the past. The patient has not recently seen a physician. REports had upper and lower GI scopes earlier in year, told had gastritis, ran out of her antacids recently, + anorexia for last few days, and single episode of hematemesis today. Reports almost daily nausea due to headache and chronic abd issues. No black stool. . 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/A - Hysterectomy ca1 Historical: - Allergies: 19:25 Ceftriaxone Sodium; ca1 19:25 Cephalexin Monohydrate; ca1 19:25 Codeine; ca1 19:25 Erythromycin; ca1 19:25 hydroxyzine HCl; ca1 19:25 Hydroxyzine Pamoate; ca1 19:25 metoclopramide HCl; ca1 19:25 Morphine; ca1 19:25 Naproxen; ca1 19:25 Ondansetron HCl; ca1 19:25 Phenergan; ca1 19:25 QUINOLONES; ca1 19:25 Sulfa (Sulfonamide Antibiotics); ca1 19:25 SUMATRIPTAN; ca1 19:25 Sumatriptan Succinate; ca1 19:25 Tramadol HCl; ca1 19:25 [id number] Antimigraine Agents; ca1 - Home Meds: 19:25 Ambien 10 mg Oral tab 1 tab nightly [Active]; Esgic Oral three times a day [Active]; ca1 Stadol NS Nasal 1 spray q4-6 hrs prn [Active]; Valium 10 mg Oral tab 1 tab 4 times per day [Active]; Flexeril Oral [Active]; - PMHx: 19:25 Angina; Anxiety; Back pain; CHF; Chronic pain; Migraines; palpitations; Pneumonia; ca1 - PSHx: 19:25 Cholecystectomy; Hysterectomy; Appendectomy; Carpal Tunnel Repair; back surgery x4; ca1 "surgery to get rid of migraines"; - Immunization history:: Adult Immunizations up to date. - Social history:: Smoking status: Patient denies any tobacco usage or history of. - Family history:: not pertinent. - Hospitalizations: : No recent hospitalization is reported. ROS: 19:40 Constitutional: Negative for fever, chills, and weight loss, Eyes: Negative for injury, rn pain, redness, and discharge, Neck: Negative for injury, pain, and swelling, Cardiovascular: Negative for chest pain, palpitations, and edema, Respiratory: Negative for shortness of breath, cough, wheezing, and pleuritic chest pain, Abdomen/GI: + for abd pain/nausea/vomiting/diarrhea/constipation Back: Negative for injury and pain, MS/Extremity: Negative for injury and deformity, Skin: Negative for injury, rash, and discoloration, Neuro: Negative for weakness, numbness, tingling, and seizure. Exam: 19:40 Constitutional: This is a well developed, well nourished patient who is awake, alert, rn and in no acute distress. Head/Face: Normocephalic, atraumatic. Eyes: Pupils equal round and reactive to light, extra-ocular motions intact. Cardiovascular: Regular rate and rhythm. No pulse deficits. Respiratory: Speaking full sentences, no retractions or labored breathing Abdomen/GI: soft, + epigastric and RUQ tenderness Skin: Warm, dry Neuro: Awake and alert, GCS 15, oriented to person, place, time, and situation. Cranial nerves II-XII grossly intact. Motor strength 5/5 in all extremities. Sensory grossly intact. Vital Signs: 19:21 BP 119 / 84; Pulse 76; Resp 16 S; Temp 97.3(TE); Pulse Ox 100% on R/A; Weight 72.57 kg ca1 (R); Height 5 ft. 1 in. (154.94 cm) (R); Pain 8/10; 20:43 BP 143 / 90; Pulse 76; Resp 18; Pulse Ox 99% on R/A; wh 22:15 BP 127 / 83; Pulse 74; Resp 18; Pulse Ox 99% on R/A; wh 19:21 Body Mass Index 30.23 (72.57 kg, 154.94 cm) ca1 MDM: 19:33 Patient medically screened. rn 21:50 Differential diagnosis: gastritis, PUD, emerita-jones, enteritis, chronic pain. Data rn reviewed: vital signs, nurses notes, lab test result(s), radiologic studies, CT scan, and as a result, I will discharge patient. Counseling: I had a detailed discussion with the patient and/or guardian regarding: the historical points, exam findings, and any diagnostic results supporting the discharge/admit diagnosis, lab results, radiology results, the need for outpatient follow up, to return to the emergency department if symptoms worsen or persist or if there are any questions or concerns that arise at home. Response to treatment: the patient's symptoms have markedly improved after treatment, and as a result, I will discharge patient. Special discussion: I discussed with the patient/guardian in detail that at this point there is no indication for admission to the hospital. It is understood, however, that if the symptoms persist or worsen the patient needs to return immediately for re-evaluation. Based on the history and exam findings, there is no indication for further emergent testing or inpatient evaluation. I discussed with the patient/guardian the need to see the senior bookkeeper for further evaluation of the symptoms. ED course: Pt improved, no acute findings in blood or CT abdomen, normal h/h and vitals, threw up small amount here, no longer with blood. Will dc home. Has televisit with Dr. Cain tomorrow already, advised restarting antacids and given return precautions. . 01/13 19:39 Order name: Basic Metabolic Panel; Complete Time: 21:14 rn 01/13 19:39 Order name: CBC with Diff; Complete Time: 21:14 rn 01/13 19:39 Order name: Creatinine for quality internship 01/13 19:39 Order name: Hepatic Function; Complete Time: 21:14 rn 01/13 19:39 Order name: Lipase; Complete Time: 21:14 rn 01/13 21:27 Order name: CREATININE WHOLE BLOOD; Complete Time: 21:39 EDMS 01/13 19:39 Order name: IV Saline Lock; Complete Time: 20:31 rn 01/13 19:39 Order name: CT Abd/Pelvis - IV Contrast Only; Complete Time: 21:39 rn 01/13 19:39 Order name: Labs collected and sent; Complete Time: 20:31 rn Administered Medications: 20:28 Drug: GI Cocktail without - (Maalox Suspension 30 ml, Lidocaine Liquid 2 % 15 wh ml) Route: PO; 21:50 Follow up: Response: No adverse reaction 20:30 Drug: ProTONIX 40 mg Route: IVP; Site: right upper arm; 21:51 Follow up: Response: No adverse reaction 20:32 Drug: Demerol 25 mg {Note: RASS 0.} Route: IVP; Site: right upper arm; 21:51 Follow up: Response: No adverse reaction; Pain is decreased; RASS: Alert and Calm (0) 21:37 Drug: Demerol 25 mg {Note: RASS - 0.} Route: IVP; Site: right antecubital; ca1 21:51 Follow up: Response: No adverse reaction; Pain is unchanged, physician notified; RASS: Alert and Calm (0) 22:21 Drug: Demerol 25 mg {Note: RASS 0.} Route: IVP; Site: right upper arm; wh 22:35 Follow up: Response: No adverse reaction; Pain is decreased; RASS: Alert and Calm (0) 22:23 Drug: Phenergan 12.5 mg Route: IVP; Site: right upper arm; 22:35 Follow up: Response: No adverse reaction; Nausea is decreased Disposition: 01/14/20 21:52 Discharged to Home. Impression: Hematemesis, Enteritis. - Condition is Stable. - Discharge Instructions: Gastritis, Adult, Hematemesis, Emerita-Jones Syndrome. - Prescriptions for Prevacid 30 mg Oral Capsule - take 1 capsule by ORAL route once daily; 20 capsule. - Medication Reconciliation Form, Thank You Letter, Antibiotic Education, Prescription Opioid Use form. - Follow up: Brenda Cain MD; When: Tomorrow; Reason: Recheck today's complaints, Re-evaluation by your physician. - Problem is new. - Symptoms have improved. Signatures: Dispatcher [employer] EDTam Mancini MD MD rn Habalo, Prashant Deneen, EVETTE Magaña RN ca1 Corrections: (The following items were deleted from the chart) 19:42 19:40 Constitutional: Negative for fever, chills, and weight loss, Eyes: Negative for rn injury, pain, redness, and discharge, Neck: Negative for injury, pain, and swelling, Cardiovascular: Negative for chest pain, palpitations, and edema, Respiratory: Negative for shortness of breath, cough, wheezing, and pleuritic chest pain, Abdomen/GI: + for abd pain/nausea/vomiting/diarrhea/constipation Back: Negative for injury and pain, MS/Extremity: Negative for injury and deformity, Skin: Negative for injury, rash, and discoloration, Neuro: Negative for headache, weakness, numbness, tingling, and seizure, rn 22:32 21:52 01/14/2020 21:52 Discharged to Home. Impression: Hematemesis; Enteritis. Condition is Stable. Forms are Medication Reconciliation Form, Thank You Letter, Antibiotic Education, Prescription Opioid Use. Follow up: Brenda Cain; When: Tomorrow; Reason: Recheck today's complaints, Re-evaluation by your physician. Problem is new. Symptoms have improved. rn
[2020-01-14] MEDS ORDERED: PROMETHAZINE INJ 25 MG/ML AMP ONE (22:23)
[2020-01-14 22:51] VITALS: TEMP 97.3
[2020-01-14 22:53] VITALS: BP 143/90; O2SAT 99
== END 2020-01-14 22:32 | disposition home or self-care (01) ==
LOC: ER 19:16
DX: K52.9 Noninfective gastroenteritis and colitis, unspecified (principal); F41.9 Anxiety disorder, unspecified; I50.9 Heart failure, unspecified; Z88.1 Allergy status to other antibiotic agents; Z88.2 Allergy status to sulfonamides; Z88.3 Allergy status to other anti-infective agents; Z88.5 Allergy status to narcotic agent; Z88.6 Allergy status to analgesic agent; Z88.8 Allergy status to other drugs, medicaments and biological substances
CPT/HCPCS: 85025; 80048; 36415; 82565; 80076; 83690; 74177; 96375; 96374; 99284; Q9967; J2550; C9113; J2175 ×3

== ENCOUNTER 2020-01-20 16:53 | Emergency (ER) | payer BC ==
--- OUTSIDE RECORDS SUMMARY | 2020-01-20 16:57 | XMS REPORT ---
:1970 Author Organization [facility] t Address [address] [place] [address] Care Team Providers Name Role Phone YOVANI Attending Clinician Unavailable Problems Condition Condition Condition Status Onset Resolution Last Treating Co mments Source Name Details Category Date Date Treatment Clinician Date History of History of Problem Resolve [facility] anxiety anxiety d ity of [place] [facility] ans History of History of Problem Resolve [facility] congestive congestive d it y of heart heart [place] failure failure Physici ans History of History of Problem Resolve [facility] head head d ity of injury injury [place] Physici ans History of History of Problem Resolve Univers herpes herpes d ity of simplex simplex [place] infection infection Phys ici ans History of History of Problem Resolve [facility] migraine migraine d [place] of [place] [facility] ans 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 [facility] 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 [place] Recurrent Recurrent Problem Active Uni vers sinus sinus [place] Rhinitis Rhinitis Problem Active Unive rs medicament medicament it y of [place] Physici ans History of History of Problem Resolve [facility] post post [place] stress stress [place] disorder disorder ans Allergies, Adverse Reactions, Alerts Allergy Allergy Status Severity Reaction(s) Onset Inactive Treating Comm ents Source Name Type Date Date Clinician Levaquin Allergy Active Univers to drug ity of (finding [place] Physici ans Minocin Allergy Active Univers to drug ity of (finding [place] ) Physici ans morphine Allergy Active Univers to drug ity of (finding [place] ) Physici ans sulfa Allergy Active Univers to drug ity of (finding [place] ) Physici ans sumatrip Allergy Active Univers vega to drug ity of (finding [place] ) Physici ans Triptans Allergy Active Univers to drug ity of (finding [place] ) Physici ans Family History Family Member Diagnosis Comments Start Date Stop Date Source Mother Family history of Univers ity of [place] malignant neoplasm Physic ians Mother Family history of Univers ity of [place] thyroid disease Physician s Mother Family history of Univers ity of [place] heart disease Physicians Father Family history of Univers ity of [place] thyroid disease Physician s Father Family history of Univers ity of [place] heart disease Physicians Social History Smoking Status Start Date Stop Date Source Ex-smoker (finding) [facility] o f [place] [facility] Medications Ordered Filled Start Stop Current Ordering Indication Dosage Frequency Signature Comments Components Source Medication Medication Date Date Medication? Clinician (SIG) Name Name Amoxicillin Amoxicillin Yes SAI Q0.5D TAKE 1 Univers -Pot -Pot 3-04 YOVANI M.D. TABLET ity of Clavulanate Clavulanate 00:00: TWICE [place] 875-125 MG 875-125 MG 00 DAILY Ph ysici Oral Tablet Oral Tablet UNTIL ans FINISHED. Mometasone Mometasone Yes SAI Q0.5D USE 1 Univers Furoate 50 Furoate 50 3-04 YOVANI M.D. SPRAY IN ity of MCG/ACT MCG/ACT 00:00: EACH [place] Nasal Nasal 00 NOSTRIL Physici Suspension Suspension TWICE an s DAILY. Penicillin Penicillin Yes SAI Q0.5D TAKE 1 Univers V Potassium V Potassium 5-30 YOVANI M.D. TABLET ity of 500 MG Oral 500 MG Oral 00:00: TWICE [place] Tablet Tablet 00 DAILY Physici UNTIL ans GONE. Qnasl 80 Qnasl 80 Yes SAI 2 QD INSTILL 2 Univers MCG/ACT MCG/ACT 5-20 YOVANI M.D. SPRAY it y of Nasal Nasal 00:00: DAILY [place] Aerosol Aerosol 00 Physici Solution Solution ans Mupirocin Mupirocin Yes SAI Mix 200 mg Univers Powder Powder 5-10 YOVANI M.D. in 1 sinus ity of 00:00: rinse [place] 00 bottle. Physici Irrigate ans 1/2 bottle each side twice a day. Valium 10 Valium 10 Yes Unive rs MG Oral MG Oral ity of Tablet Tablet [place] Physici ans Propranolol Propranolol Yes U nivers HCl POWD HCl POWD ity of [place] Physici ans Flexeril 10 Flexeril 10 Yes U nivers MG TABS MG TABS ity of [place] Physici ans CeleBREX CeleBREX Yes Univers CAPS CAPS ity of [place] Physici ans Zanaflex Zanaflex Yes Univers TABS TABS ity of [place] Physici ans Esgic CAPS Esgic CAPS Yes Uni vers ity of [place] Physici ans Ambien 10 Ambien 10 Yes Unive rs MG Oral MG Oral ity of Tablet Tablet [place] Physici ans Stadol SOLN Stadol SOLN Yes U nivers ity of [place] Physici ans Tylenol Tylenol Yes Univers with with ity of Codeine #4 Codeine #4 [place] as TABS TABS Physici ans Nubain SOLN [place] SOLN Yes U nivers ity of [place] Physici ans levoFLOXaci levoFLOXaci Yes U nivers n TABS n TABS ity of [place] Physici ans Vital Signs Vital Name Observation Time Observation Value Comments Source Systolic blood 2019-11-06 150 mm[Hg] Location: [facility] 15:11:00 Position: [place] Physician s Sitting Diastolic blood 2019-11-06 103 mm[Hg] Location: [facility] 15:11:00 Position: [place] Physician s Sitting Body height 2019-11-06 61 [in_us] [facility] 15:11:00 [place] Physician s Weight 2019-11-06 160 [lb_av] [facility] 15:11:00 [place] Phys[facility] s Body mass index 2019-11-06 30.23 kg/m2 [place] o f (BMI) [Ratio] 15:11:00 [facility] Body temperature 2019-11-06 97.8 [degF] Method: Oral University 15:11:00 [place] Physician s Heart Rate 2019-11-06 68 /min [facility] 15:11:00 [place] Physician s BP Systolic 2018-12-20 126 mm[Hg] [facility] 10:34:00 Position: [place] Physician s Sitting BP Diastolic 2018-12-20 91 mm[Hg] [facility] 10:34:00 Position: [place] Physician s Sitting Height 2018-12-20 61 [in_us] [facility] 10:34:00 [place] Physician s Weight 2018-12-20 163 [lb_av] [facility] 10:34:00 [place] Physician s Body Mass Index 2018-12-20 30.8 kg/m2 University o f Calculated 10:34:00 [place] Physician s Heart Rate 2018-12-20 86 /min [facility] 10:34:00 [place] Phys[facility] s Procedures Procedure Date / Time Performing Clinician Source Performed [H] Culture Sinus w/GS 2019-11-06 00:00:00 [facility] History of Hysterectomy Universi [facility] Physicians History of Cholecystectomy Unive rsity [facility] Physicians History of Appendectomy Universi ty [facility] Physicians History of Rhinoplasty Universit y [facility] Physicians History of Tonsillectomy Univers ity [facility] Physicians History of Back Surgery Universi ty [facility] Physicians History of Knee Surgery Universi [facility] Physicians History of Simple Bunion Univers ity [facility] Exostectomy ([place] [facility] Procedure) [facility] History of Carpal tunnel Univers ity [facility] surgery Physicians History of Breast Surgery Univer [facility] Reduction Procedure Physicians History of Neck Surgery Universi [facility] Physicians Encounters Start End Encounter Admission Attending Care Care Encounter Source Date/Time Date/Time Type Type Clinicians Facility Department ID 2019-11-06 2019-11-06 Appointmen ERIK PINA [facility] [id number] Univers 15:30:00 15:30:00 t; SAI PINA M.D. yngology - ity [facility] Physici [place] ans 2018-12-20 2018-12-20 Appointmen ERIK PINA [facility] [id number] Univers 10:15:00 10:15:00 t; [facility] Results This patient has no known results.
[2020-01-20 20:44] LABS: Urine Blood 1+ (NEG); Urine Glucose NEGATIVE (NEG); Urine Protein NEGATIVE (NEG); Urine Specific Gravity 1.025 (1.005-1.030)
[2020-01-20] MEDS ORDERED: MEPERIDINE HCL 25 MG/0.5 ML ONE (21:01)
[2020-01-20] MEDS ORDERED: NA CHLORIDE 0.9% 1,000 ML ONE (21:02)
[2020-01-20] MEDS ORDERED: PROMETHAZINE INJ 25 MG/ML AMP ONE (21:02)
[2020-01-20 22:09] LABS: Absolute Lymphocytes (CBC) 3.2 K/uL (0.7-4.9); Basophils % 0.8 % (0-1.3); Hematocrit 40.6 % (36.0-45.0); Lymphocytes % 40.7 % (15.3-44.8); RBC Red Blood Cell Count 4.38 M/uL (3.86-4.86)
[2020-01-20 22:19] LABS: ALT/SGPT 66 U/L (12-78); Albumin 3.9 g/dL (3.4-5.0); Alkaline Phosphatase 252 U/L (45-117); BUN Blood Urea Nitrogen 15 mg/dL (7-18); Bicarbonate 25 mmol/L (21-32); Bilirubin Direct < 0.1 mg/dL (0-0.2); Bilirubin Total 0.2 mg/dL (0.2-1.0); Glucose Level 99 mg/dL (74-106); Lipase 138 U/L (73-393); Protein, Total 7.8 g/dL (6.4-8.2); Sodium Level 143 mmol/L (136-145)
[2020-01-20 22:20] LABS: AST/SGOT 42 U/L (15-37); Potassium 4.1 mmol/L (3.5-5.1)
[2020-01-20 22:25] LABS: Protime INR 0.98
[2020-01-20] MEDS ORDERED: MEPERIDINE HCL 50 MG/ML ONE (22:58)
--- NOTE | 2020-01-20 23:43 | ER ---
Nurse's Notes [facility] Name: Patsy Danielle Age: 49 yrs Sex: Female : 1970 Arrival Date: 01/20/2020 Time: 16:57 Bed 19 Private MD: None, None Diagnosis: Constipation;Vomiting;Unspecified abdominal pain Presentation: 01/19 17:07 Chief complaint: Patient states: abd pain, n/v/chills x 2 days, "I think I'm throwing sv up fecal matter." Was seen here last week for vomiting blood. Coronavirus screen: Proceed with normal triage. Patient denies a cough. Patient denies shortness of breath or difficulty breathing. Patient reports a measured and/or subjective temperature greater than 100.4F. Patient denies travel on a cruise ship or to a country the [facility] currently lists as an affected area. Patient denies contact with known and/or suspected case of COVID-19. Ebola Screen: No symptoms or risks identified at this time. Risk Assessment: Do you want to hurt yourself or someone else? Patient reports no desire to harm self or others. Onset of symptoms was January 18, 2020. 17:07 Method Of Arrival: Wheelchair sv 17:07 Acuity: VICK 3 sv 17:10 Initial Sepsis Screen: Does the patient meet any 2 criteria? No. Patient's initial sv sepsis screen is negative. Does the patient have a suspected source of infection? Yes: Acute abdominal pain. Triage Assessment: 17:13 General: Appears in no apparent distress. uncomfortable, Behavior is calm, cooperative, sv appropriate for age. Pain: Complains of pain in abdomen. Neuro: Level of Consciousness is awake, alert, obeys commands. Respiratory: Respiratory effort is even, unlabored. GI: Reports nausea, vomiting. 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 LMP N/A - Hysterectomy bb3 Historical: - Allergies: 01/19 17:10 Ceftriaxone Sodium; sv 17:10 Cephalexin Monohydrate; sv 17:10 Codeine; sv 17:10 Erythromycin; sv 17:10 hydroxyzine HCl; sv 17:10 Hydroxyzine Pamoate; sv 17:10 metoclopramide HCl; sv 17:10 Morphine; sv 17:10 Naproxen; sv 17:10 Ondansetron HCl; sv 17:10 Phenergan; sv 17:10 QUINOLONES; sv 17:10 Sulfa (Sulfonamide Antibiotics); sv 17:10 SUMATRIPTAN; sv 17:10 Sumatriptan Succinate; sv 17:10 Tramadol HCl; sv 17:10 [id number] Antimigraine Agents; sv - PMHx: 17:10 Angina; Anxiety; Back pain; CHF; Chronic pain; Migraines; palpitations; Pneumonia; sv - PSHx: 17:10 Cholecystectomy; Hysterectomy; Appendectomy; Carpal Tunnel Repair; back surgery x4; sv "surgery to get rid of migraines"; - Immunization history:: Adult Immunizations up to date. - Social history:: Smoking status: . Screenin/19 00:43 Abuse screen: Denies threats or abuse. Nutritional screening: No deficits noted. bb3 Tuberculosis screening: No symptoms or risk factors identified. Fall Risk None identified. Assessment: 01/19 19:40 Reassessment: Patient and/or family updated on plan of care and expected duration. Pain bb3 level reassessed. Patient is alert, oriented x 3, equal unlabored respirations, skin warm/dry/pink. General: Appears in no apparent distress. comfortable. Pain: Complains of pain in right lower quadrant and left lower quadrant Pain radiates to lumbar area, left low back and right low back Pain currently is 10 out of 10 on a pain scale. Quality of pain is described as crampy, sharp, shooting. 21:17 Reassessment: Patient appears in no apparent distress at this time. Patient and/or bb3 family updated on plan of care and expected duration. Pain level reassessed. Patient is alert/active/playful, equal unlabored respirations, skin warm/dry/pink. General: Appears in no apparent distress. comfortable, Behavior is calm, cooperative, appropriate for age. Pain: Complains of pain in right lower quadrant and left lower quadrant Pain currently is 8 out of 10 on a pain scale. 22:15 General: pt taken to CT . bb3 22:49 Reassessment: Verbal order per Lc Cedillo NP for Demerol 50mg IM x1. lp1 23:00 Reassessment: senior environmental technician aliyah reports the IV catheter was difficult to flush, dressing sg changed, IV cath flows, blood returns, pt denies any pain, a new dressing has been applied, pt IVF continued, pt tolerating well, primary nurse notified, pt awaiting new orders at this time. Vital Signs: 17:10 BP 122 / 67; Pulse 69; Resp 20; Temp 97.8; Pulse Ox 100% ; Weight 72.57 kg; Height 5 sv ft. 1 in. (154.94 cm); 19:40 BP 118 / 66; Pulse 64; Resp 19; Temp 98.7; Pulse Ox 92% ; Pain 10/10; bb3 19:40 BP 140 / 104; Pulse 68; Resp 20; Pulse Ox 95% ; bb3 21:20 BP 100 / 52; Pulse 67; Resp 18; Pulse Ox 96% ; Pain 0/10; bb3 23:26 Resp 19; Pulse Ox 99% ; Pain 7/10; bb3 23:28 BP 102 / 56; Pulse 68; Resp 18; Pulse Ox 100% ; bb3 23:59 Pulse 97; Resp 18; bb3 01/20 00:38 BP 142 / 90; Pulse 110; Resp 20; Pulse Ox 99% ; Pain 5/10; bb3 01/19 17:10 Body Mass Index 30.23 (72.57 kg, 154.94 cm) sv Vitals: 01/19 21:20 Cardiac Rhythm Assessment Regular Sinus rhythm. bb3 ED Course: 16:57 Patient arrived in ED. dp 17:00 None, None is Private Physician. dp 17:09 Triage completed. sv 17:10 Arm band placed on. sv 19:27 Lc Cedillo NP is PHCP. pm1 19:27 Saeid Pugh MD is Attending Physician. pm1 20:10 Urine collected: clean catch specimen, clear, edith colored. jp3 20:10 Patient maintains SpO2 saturation greater than 95% on room air. jp3 20:22 Bed in low position. Call light in reach. Side rails up X 1. Warm blanket given. Verbal jp3 reassurance given. Pulse ox on. NIBP on. 21:00 Initial lab(s) drawn, by me, sent to lab. Missed attempt(s): 20 gauge POWERGLIDE sg MIDLINE PRO 10 CM to RUE. Bleeding controlled, band aid applied, catheter tip intact. 21:40 Lab(s) recollected, by me, sent to lab. Inserted POWERGLIDE MIDLINE PRO, 20 G 10 cm to sg LUE. 22:48 CT Abd/Pelvis - IV Contrast Only In Process Unspecified. EDMS 23:00 IV is patent, is intact, with fluids infusing freely, with good blood return, Flushed sg left 20 mL NS. 01/20 00:44 No provider procedures requiring assistance completed. IV discontinued, bleeding bb3 controlled, No redness/swelling at site. Pressure dressing applied. Administered Medications: 01/19 00:10 Drug: Demerol 50 mg Route: IVP; Site: left antecubital; bb3 01/20 00:38 Follow up: BP 142 / 90; Pulse 110 bpm; Resp 20 bpm; Pulse Ox 99% ; Pain 5/10 Adult; bb3 Response: No adverse reaction; Pain is decreased 01/19 21:59 Drug: Demerol 25 mg Route: IVP; Site: left antecubital; bb3 23:26 Follow up: Resp 19 bpm; Pulse Ox 99% ; Pain 7/10 Adult; Response: No adverse reaction; bb3 Pain is decreased 21:59 Drug: Phenergan 12.5 mg Route: IVP; Site: left antecubital; bb3 23:26 Follow up: Response: No adverse reaction; Nausea is decreased bb3 22:00 Drug: NS 0.9% 1000 ml Route: IV; Rate: 1000 ml; Site: left antecubital; bb3 23:14 Drug: Demerol 50 mg Route: IVP; Site: left antecubital; bb3 23:59 Follow up: Pulse 97 bpm; Resp 18 bpm; Response: No adverse reaction; Pain is decreased bb3 23:16 CANCELLED (Change in admin route per Provider): Demerol 50 mg IM once; RASS on ADMIN: lp1 Combtv4, Very Agttd3, Agttd2, Rstlss1, AlertClm0, Drwsy-1, Lt Sdtn-2, Mod Sdtn-3, Dp Sdtn-4, UnArsble-5 Point of Care Testing: Urine : 20:22 hCG Reading: Negative; Control Reading: Positive; jp3 Outcome: 23:42 Discharge ordered by . pm1 01/20 00:42 Discharged to home ambulatory. bb3 Condition: improved Discharge instructions given to patient, Instructed on discharge instructions, follow up and referral plans. medication usage, Demonstrated understanding of 00:53 Prescriptions given X 4. bb3 00:53 Patient left the ED. bb3 Signatures: Dispatcher [employer] EDAlexandrea Gilbert RN RN sv Gay, Steven, RN RN sg Diana Mckeon RN RN lp1 Lc Cedillo, ADOPTION MANAGER ADOPTION MANAGER pm1 Herbert Liang jp3 Francisco Mckeon Brandy bb3 Corrections: (The following items were deleted from the chart) 01/19 17:14 17:10 Pulse 69bpm; Resp 20bpm; Pulse Ox 100%; Temp 97.8F; 72.57 kg; Height 5 ft. 1 in.; sv BMI: 30.2; sv
--- NOTE | 2020-01-20 23:43 | EDPHYS ---
Physician Documentation [facility] Name: Patsy Danielle Age: 49 yrs Sex: Female : 1970 Arrival Date: 01/20/2020 Time: 16:57 Bed 19 Private MD: None, None ED Physician Saeid Pugh HPI: 01/19 23:50 This 49 yrs old Female presents to ER via Wheelchair with complaints of pm1 Nausea/Vomiting, Abdominal Pain. 23:50 The patient presents to the emergency department with nausea, vomiting, abdominal pain. pm1 Onset: The symptoms/episode began/occurred 2 day(s) ago. Possible causes: patient concerned that she has a bowel obstruction. Has not had one in the past. Patient thinks that she is vomiting fecal matter. The symptoms are aggravated by. Associated signs and symptoms: Pertinent positives: abdominal pain, Patient reports stringy bowel movement, subjective fever, Pertinent negatives: diarrhea, dysuria. Patient was seen here on 01/14/2020 for complaint of vomiting blood. Negative work up and discharged home. Patient reports she has had EGD and colonoscopy by Dr. Cain within the past month and they were negative. 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/A - Hysterectomy bb3 Historical: - Allergies: 01/19 17:10 Ceftriaxone Sodium; sv 17:10 Cephalexin Monohydrate; sv 17:10 Codeine; sv 17:10 Erythromycin; sv 17:10 hydroxyzine HCl; sv 17:10 Hydroxyzine Pamoate; sv 17:10 metoclopramide HCl; sv 17:10 Morphine; sv 17:10 Naproxen; sv 17:10 Ondansetron HCl; sv 17:10 Phenergan; sv 17:10 QUINOLONES; sv 17:10 Sulfa (Sulfonamide Antibiotics); sv 17:10 SUMATRIPTAN; sv 17:10 Sumatriptan Succinate; sv 17:10 Tramadol HCl; sv 17:10 [id number] Antimigraine Agents; sv - PMHx: 17:10 Angina; Anxiety; Back pain; CHF; Chronic pain; Migraines; palpitations; Pneumonia; sv - PSHx: 17:10 Cholecystectomy; Hysterectomy; Appendectomy; Carpal Tunnel Repair; back surgery x4; sv "surgery to get rid of migraines"; - Immunization history:: Adult Immunizations up to date. - Social history:: Smoking status: . ROS: 23:50 Constitutional: Negative for fever, chills, and weight loss, Cardiovascular: Negative pm1 for chest pain, palpitations, and edema, Respiratory: Negative for shortness of breath, cough, wheezing, and pleuritic chest pain. 23:50 Back: Negative for injury and pain, : Negative for injury, bleeding, discharge, and swelling, MS/Extremity: Negative for injury and deformity, Skin: Negative for injury, rash, and discoloration, Neuro: Negative for headache, weakness, numbness, tingling, and seizure. 23:50 Abdomen/GI: Positive for abdominal pain, nausea and vomiting, Negative for constipation. Exam: 23:50 Constitutional: This is a well developed, well nourished patient who is awake, alert, pm1 and in no acute distress. Head/Face: Normocephalic, atraumatic. Chest/axilla: Normal chest wall appearance and motion. Nontender with no deformity. No lesions are appreciated. 23:50 Back: No spinal tenderness. No costovertebral tenderness. Full range of motion. Skin: Warm, dry with normal turgor. Normal color with no rashes, no lesions, and no evidence of cellulitis. MS/ Extremity: Pulses equal, no cyanosis. Neurovascular intact. Full, normal range of motion. 23:50 Cardiovascular: Exam negative for acute changes, Rate: normal, Rhythm: regular, Pulses: no pulse deficits are appreciated. 23:50 Respiratory: Exam negative for acute changes, respiratory distress, shortness of breath. 23:50 Abdomen/GI: Inspection: abdomen appears normal, Palpation: abdomen is soft and non-tender, in all quadrants, mass, is not appreciated, rebound tenderness, is not appreciated. 23:50 Neuro: Exam negative for acute changes, Orientation: is normal, Mentation: is normal, Motor: is normal, moves all fours, Sensation: is normal, no obvious gross deficits. Vital Signs: 17:10 BP 122 / 67; Pulse 69; Resp 20; Temp 97.8; Pulse Ox 100% ; Weight 72.57 kg; Height 5 sv ft. 1 in. (154.94 cm); 19:40 BP 118 / 66; Pulse 64; Resp 19; Temp 98.7; Pulse Ox 92% ; Pain 10/10; bb3 19:40 BP 140 / 104; Pulse 68; Resp 20; Pulse Ox 95% ; bb3 21:20 BP 100 / 52; Pulse 67; Resp 18; Pulse Ox 96% ; Pain 0/10; bb3 23:26 Resp 19; Pulse Ox 99% ; Pain 7/10; bb3 23:28 BP 102 / 56; Pulse 68; Resp 18; Pulse Ox 100% ; bb3 23:59 Pulse 97; Resp 18; bb3 05 00:38 BP 142 / 90; Pulse 110; Resp 20; Pulse Ox 99% ; Pain 5/10; bb3 01/19 17:10 Body Mass Index 30.23 (72.57 kg, 154.94 cm) sv MDM: 01/19 19:33 Patient medically screened. pm1 23:41 Data reviewed: vital signs. Data interpreted: Pulse oximetry: on room air is 100 %. pm1 Interpretation: normal. Counseling: I had a detailed discussion with the patient and/or guardian regarding: the historical points, exam findings, and any diagnostic results supporting the discharge/admit diagnosis, lab results, radiology results, the need for outpatient follow up, a nurse executive, to return to the emergency department if symptoms worsen or persist or if there are any questions or concerns that arise at home. 23:41 ED course: Patient without any episodes of vomiting throughout ER visit.. pm1 23:59 ED course: Patient requested pain medications prior to leaving despite informing her pm1 that pain medications can cause additional constipation. 01/19 19:34 Order name: Basic Metabolic Panel; Complete Time: 23:31 pm1 01/19 19:34 Order name: CBC with Diff; Complete Time: 23:31 pm1 01/19 19:34 Order name: Hepatic Function; Complete Time: 23:31 pm1 01/19 19:34 Order name: Lipase; Complete Time: 23:31 pm1 01/19 19:34 Order name: PT-INR; Complete Time: 23:31 pm1 01/19 20:23 Order name: Urine Dipstick--Ancillary (enter results); Complete Time: 20:45 mw2 01/19 19:43 Order name: CT Abd/Pelvis - IV Contrast Only pm1 01/19 20:23 Order name: Urine --Ancillary (enter results); Complete Time: 20:45 mw2 01/19 22:14 Order name: CREATININE WHOLE BLOOD; Complete Time: 23:31 EDMS 01/19 19:34 Order name: IV Saline Lock; Complete Time: 22:37 pm1 01/19 19:34 Order name: Labs collected and sent; Complete Time: 22:37 pm1 01/19 19:43 Order name: Urine Dipstick-Ancillary (obtain specimen); Complete Time: 20:22 pm1 01/19 19:43 Order name: Urine Test (obtain specimen); Complete Time: 20:22 pm1 Administered Medications: 00:10 Drug: Demerol 50 mg Route: IVP; Site: left antecubital; bb3 01/20 00:38 Follow up: BP 142 / 90; Pulse 110 bpm; Resp 20 bpm; Pulse Ox 99% ; Pain 5/10 Adult; bb3 Response: No adverse reaction; Pain is decreased 01/19 21:59 Drug: Demerol 25 mg Route: IVP; Site: left antecubital; bb3 23:26 Follow up: Resp 19 bpm; Pulse Ox 99% ; Pain 7/10 Adult; Response: No adverse reaction; bb3 Pain is decreased 21:59 Drug: Phenergan 12.5 mg Route: IVP; Site: left antecubital; bb3 23:26 Follow up: Response: No adverse reaction; Nausea is decreased bb3 22:00 Drug: NS 0.9% 1000 ml Route: IV; Rate: 1000 ml; Site: left antecubital; bb3 23:14 Drug: Demerol 50 mg Route: IVP; Site: left antecubital; bb3 23:59 Follow up: Pulse 97 bpm; Resp 18 bpm; Response: No adverse reaction; Pain is decreased bb3 23:16 CANCELLED (Change in admin route per Provider): Demerol 50 mg IM once; RASS on ADMIN: lp1 Combtv4, Very Agttd3, Agttd2, Rstlss1, AlertClm0, Drwsy-1, Lt Sdtn-2, Mod Sdtn-3, Dp Sdtn-4, UnArsble-5 Point of Care Testing: Urine : 20:22 hCG Reading: Negative; Control Reading: Positive; jp3 Disposition: 01/20 06:54 Co-signature as Attending Physician, Saeid Pugh MD I agree with the assessment and tw4 plan of care. Disposition: 01/20/20 23:42 Discharged to Home. Impression: Constipation, Vomiting, Unspecified abdominal pain. - Condition is Stable. - Discharge Instructions: Abdominal Pain, Adult, Constipation, Adult, Nausea and Vomiting, Adult. - Prescriptions for Bentyl 20 mg Oral Tablet - take 1 tablet by ORAL route every 6 hours As needed; 20 tablet. Miralax 17 gram/dose Oral - take 1 packet by ORAL route once daily As needed dilute powder in 8 ounces of water or juice; 7 packet. Phenergan 25 mg Rectal Suppository - insert 1 suppository by RECTAL route every 6 hours As needed; 12 suppository. promethazine 25 mg Oral Tablet - take 1 tablet by ORAL route every 6 hours As needed; 20 tablet. - Medication Reconciliation Form, Thank You Letter, Antibiotic Education, Prescription Opioid Use form. - Follow up: Emergency Department; When: As needed; Reason: Worsening of condition. Follow up: Private Physician; When: 2 - 3 days; Reason: Recheck today's complaints, Continuance of care, Re-evaluation by your physician. - Problem is new. - Symptoms have improved. Signatures: Dispatcher [employer] EDMS Alexandrea Jesus RN RN Diana Purvis RN RN lp1 Lc Cedillo, ACCOUNTING PROFESSOR ACCOUNTING PROFESSOR pm1 Saeid Pugh MD MD tw4 Stephanie Clark bb3 Corrections: (The following items were deleted from the chart) 01/19 23:16 22:49 Demerol 50 mg IM once; RASS on ADMIN: Combtv4, Very Agttd3, Agttd2, Rstlss1, lp1 AlertClm0, Drwsy-1, Lt Sdtn-2, Mod Sdtn-3, Dp Sdtn-4, UnArsble-5 ordered. lp1 23:43 23:42 01/20/2020 23:42 Discharged to Home. Impression: Constipation. Condition is pm1 Stable. Forms are Medication Reconciliation Form, Thank You Letter, Antibiotic Education, Prescription Opioid Use. Follow up: Emergency Department; When: As needed; Reason: Worsening of condition. Follow up: Private Physician; When: 2 - 3 days; Reason: Recheck today's complaints, Continuance of care, Re-evaluation by your physician. Problem is new. Symptoms have improved. pm1 01/20 00:53 01/19 23:43 01/20/2020 23:42 Discharged to Home. Impression: Constipation; Vomiting; bb3 Unspecified abdominal pain. Condition is Stable. Discharge Instructions: Constipation, Adult. Prescriptions for Bentyl 20 mg Oral Tablet - take 1 tablet by ORAL route every 6 hours As needed; 20 tablet, Miralax 17 gram/dose Oral - take 1 packet by ORAL route once daily As needed dilute powder in 8 ounces of water or juice; 7 packet. and Forms are Medication Reconciliation Form, Thank You Letter, Antibiotic Education, Prescription Opioid Use. Follow up: Emergency Department; When: As needed; Reason: Worsening of condition. Follow up: Private Physician; When: 2 - 3 days; Reason: Recheck today's complaints, Continuance of care, Re-evaluation by your physician. Problem is new. Symptoms have improved. pm1
[2020-01-21] MEDS ORDERED: MEPERIDINE HCL 25 MG/0.5 ML ONE (00:13)
--- NOTE | 2020-01-21 10:27 | RAD REPORT ---
FINDINGS: CT - Abdomen Pelvis W Contrast - 01/20/2020 11:46 pm CLINICAL HISTORY: 49 years Female ABD PAIN COMPARISON: January 14, 2020. TECHNIQUE: Images were obtained in axial, sagittal, and coronal planes. Intravenous contrast was adm inistered. This exam was performed according to our departmental dose-optimization program which includes use of Automated Exposure Control, adjustment of the mA and/or kV according to patient size and/or use of iterative reconstruction technique. FINDINGS: No abnormality involving the liver, spleen, pancreas, or adrenal glands bilaterally. Prior cholecystectomy. No hydronephrosis bilaterally. No renal parenchymal abnormalities bilaterally. Unremarkable bladder. Appendix not well identified however no secondary signs for appendicitis. Marked constipation. No bow el obstruction or perforation. No dilatation abdominal aorta. No adenopathy or abnormal fluid collections seen. No abnormality lower lungs bilaterally. No acute osseous abnormality. Extensive postsurgical changes lumbar spine IMPRESSION: No acute intra-abdominal abnormality. Marked constipation. No evidence for bowel obstruction. Electronically signed by: Eden Ventura MD 01/20/2020 11:12 PM CDT Due to temporary technical issues with the PACS/Fluency reporting system, reports are being signed by the in house radiologist as a courtesy to ensure prompt reporting. The interpreting radiologist is f ully responsible for the content of the report.
== END 2020-01-21 00:53 | disposition home or self-care (01) ==
LOC: ER 16:53
DX: K59.00 Constipation, unspecified (principal); R10.9 Unspecified abdominal pain; Z88.1 Allergy status to other antibiotic agents; Z88.2 Allergy status to sulfonamides; Z88.5 Allergy status to narcotic agent; Z88.6 Allergy status to analgesic agent; Z88.8 Allergy status to other drugs, medicaments and biological substances
CPT/HCPCS: 85025; 80048; 36415; 81025; 85610; 82565; 80076; 81003; 83690; 74177; 96375; 96374; 99284; J2550; J2175 ×3; J7030

== ENCOUNTER 2020-02-10 12:48 | Emergency (ER) | payer BC ==
[2020-02-10 15:07] LABS: Urine Specific Gravity 1.015 (1.005-1.030)
[2020-02-10 15:07] LABS: Urine Blood NEGATIVE (NEG); Urine Glucose NEGATIVE (NEG); Urine Protein NEGATIVE (NEG); Urine Specific Gravity 1.015 (1.005-1.030); Urine pH 5.5 (5.0-7.0)
[2020-02-10 16:00] LABS: Absolute Lymphocytes (CBC) 3.4 K/uL (0.7-4.9); Basophils % 1.5 % (0-1.3); Hematocrit 43.4 % (36.0-45.0); MPV 8.4 fL (7.6-11.3); RBC Red Blood Cell Count 4.73 M/uL (3.86-4.86)
[2020-02-10 16:17] LABS: ALT/SGPT 64 U/L (12-78); AST/SGOT 36 U/L (15-37); Albumin 3.9 g/dL (3.4-5.0); Alkaline Phosphatase 234 U/L (45-117); BUN Blood Urea Nitrogen 11 mg/dL (7-18); Bicarbonate 19 mmol/L (21-32); Bilirubin Direct 0.1 mg/dL (0-0.2); Bilirubin Total 0.4 mg/dL (0.2-1.0); Glucose Level 100 mg/dL (74-106); Lipase 268 U/L (73-393); Sodium Level 139 mmol/L (136-145)
--- OUTSIDE RECORDS SUMMARY | 2020-02-10 16:17 | XMS REPORT | Continuity of Care Document ---
:1970 Author Organization [facility] t Address Formerly [facility] [address]son [address] [place] [address] Care Team Providers Name Role Phone YOVANI [...] Mother Family history of [facility] [place] malignant neoplasm Physic ians Mother Family history of [facility] [place] thyroid disease Physician s Mother Family history of [facility] [place] heart disease Physicians Father Family history of [facility] [place] thyroid disease Physician s Father Family history of [facility] [place] heart disease Physicians Social History Smoking Status Start Date Stop Date Source Ex-smoker (finding) [facility] [place] [facility] Medications Ordered Filled Start Stop Current [...] nivers HCl POWD HCl POWD [facility] [place] [facility] Flexeril 10 Flexeril 10 Yes U nivers MG TABS MG TABS [facility] [place] [facility] CeleBREX CeleBREX Yes Univers CAPS CAPS [facility] [place] [facility] Zanaflex Zanaflex Yes Univers TABS TABS [facility] of [place] [facility] Esgic CAPS Esgic CAPS Yes Uni vers [facility] [place] [facility] Ambien 10 Ambien 10 Yes Unive rs MG Oral MG Oral ity of Tablet Tablet [place] [facility] Stadol SOLN Stadol SOLN Yes U nivers [facility] [place] [facility] Tylenol Tylenol Yes Univers with with ity of Codeine #4 Codeine #4 [place] as TABS TABS Physici ans [place]ubain SOLN [place] SOLN Yes U nivers ity of [place] [facility] levoFLOXaci levoFLOXaci Yes U nivers n TABS n TABS [facility] of [place] [facility] Vital Signs Vital Name Observation Time Observation Value Comments Source Systolic blood 2019-11-06 150 mm[Hg] Location: [facility] 15:11:00 Position: [place] [facility] Diastolic blood 2019-11-06 103 mm[Hg] Location: [facility] 15:11:00 Position: [place] [facility] Body height 2019-11-06 61 [in_us] [facility] 15:11:00 [place] [facility] Weight 2019-11-06 160 [lb_av] [facility] 15:11:00 [place] [facility] Body mass index 2019-11-06 30.23 kg/m2 [facility] o f (BMI) [Ratio] 15:11:00 [facility] Body temperature 2019-11-06 97.8 [degF] Method: Oral [facility] 15:11:00 [place] [facility] Heart Rate 2019-11-06 68 /min [facility] 15:11:00 [place] [facility] BP Systolic 2018-12-20 126 mm[Hg] [facility] 10:34:00 Position: [place] [facility] BP Diastolic 2018-12-20 91 mm[Hg] [facility] Position: [place] [facility] Height 2018-12-20 61 [in_us] [facility] 10:34:00 [place] [facility] Weight 2018-12-20 163 [lb_av] [facility] :34: [place] [facility] Body Mass Index 2018-12-20 30.8 kg/m2 [facility] o f Calculated 10:34:00 [place] [facility] Heart Rate 2018-12-20 86 /min [facility] :34:00 [place] [facility] Procedures Procedure Date / Time Performing Clinician Source Performed [H] Culture Sinus w/GS 2019-11-06 00:00[facility]00 [facility] of [facility]end[facility] History of Tonsillectomy [facility] History of Back Surgery [facility] History of Knee Surgery [facility] History of Simple Bunion [facility] Exostectomy ([facility] Procedure) History of Elbow Surgery [facility] History of Carpal tunnel [facility] surgery Physicians [facility] History of Neck Surgery [facility] Physicians Encounters Start End Encounter Admission Attending Care Care Encounter Source Date/Time Date/Time Type Type Clinicians Facility Department ID 2019-11-06 2019-11-06 Appointmen ERIK PINA [facility] [id number] [facility] 15:30:00 15:30:00 t; SAI PINA M.D[facility] [place] [facility] 2018-12-20 2018-12-20 Appointmen ERIK PINA [facility] [id number] Univers 10:15:00 10:15:00 t; [facility] [place] [facility] Results This patient has no known results.
[2020-02-10] MEDS ORDERED: MEPERIDINE HCL 25 MG/ML SYR ONE ×2 (16:58→18:09)
--- NOTE | 2020-02-10 17:31 | RAD REPORT ---
EXAM DESCRIPTION: CT - Abdomen Pelvis W Contrast - 02/10/2020 5:14 pm CLINICAL HISTORY: Abdominal pain. COMPARISON: January 2020 TECHNIQUE: Computed axial tomography of the abdomen and pelvis was obtained. 100 cc Isovue-300 is ad ministered intravenously. Oral contrast was given. All CT scans are performed using dose optimization technique as appropriate and may include automated exposure control or mA/KV adjustment according to patient size. FINDINGS: The liver, spleen, pancreas, adrenals and kidneys appear unremarkable. There is no evidence of diverticulitis Postsurgical changes involve lumbar spine IMPRESSION: No acute abnormality displayed
[2020-02-10 17:47] LABS: Platelet Estimate ADEQ
[2020-02-10 17:48] LABS: Anisocytosis 1+; Blood Morphology Comment NOTED (NOT SEEN); Poikilocytosis 1+
--- NOTE | 2020-02-10 17:52 | EDPHYS ---
Physician Documentation [facility] Name: Patsy Danielle Age: 49 yrs Sex: Female : 1970 Arrival Date: 02/10/2020 Time: 12:50 Bed 19 Private MD: ED Physician Elliott Lange HPI: 02/10 13:49 This 49 yrs old Female presents to ER via Ambulatory with complaints of kdr Bloody Stools, Abdominal Pain, Weakness. 13:49 The patient presents with abdominal pain that is diffuse. Onset: The symptoms/episode kdr began/occurred gradually, 5 day(s) ago. The symptoms do not radiate. Associated signs and symptoms: Pertinent positives: blood in stools, Weakness and bloody stools. The symptoms are described as achy, burning, constant, crampy, intermittent. Modifying factors: The symptoms are alleviated by nothing, the symptoms are aggravated by movement. Severity of pain: At its worst the pain was mild in the emergency department the pain has improved mildly. The patient has experienced similar episodes in the past, a few times. The patient has not recently seen a physician. 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 N/A - Hysterectomy ca1 Historical: - Allergies: 13:04 Ceftriaxone Sodium; ss 13:04 Cephalexin Monohydrate; ss 13:04 Codeine; ss 13:04 Erythromycin; ss 13:04 hydroxyzine HCl; ss 13:04 Hydroxyzine Pamoate; ss 13:04 metoclopramide HCl; ss 13:04 Morphine; ss 13:04 Naproxen; ss 13:04 Ondansetron HCl; ss 13:04 Phenergan; ss 13:04 QUINOLONES; ss 13:04 Sulfa (Sulfonamide Antibiotics); ss 13:04 SUMATRIPTAN; ss 13:04 Sumatriptan Succinate; ss 13:04 Tramadol HCl; ss 13:04 [id number] Antimigraine Agents; ss 13:04 Lyrica; ss 13:04 GABAPENTIN; ss - PMHx: 13:04 Angina; Anxiety; Back pain; CHF; Chronic pain; Migraines; palpitations; Pneumonia; ss - Immunization history:: Adult Immunizations up to date. - Social history:: Smoking status: Patient denies any tobacco usage or history of. ROS: 06/09 13:49 Constitutional: Negative for fever, chills, and weight loss, Eyes: Negative for injury, kdr pain, redness, and discharge, Neck: Negative for injury, pain, and swelling, Cardiovascular: Negative for chest pain, palpitations, and edema, Respiratory: Negative for shortness of breath, cough, wheezing, and pleuritic chest pain, Back: Negative for injury and pain, : Negative for injury, bleeding, discharge, and swelling, MS/Extremity: Negative for injury and deformity, Skin: Negative for injury, rash, and discoloration, Neuro: Negative for headache, weakness, numbness, tingling, and seizure activity. Psych: Negative for depression, anxiety, suicide ideation, homicidal ideation, and hallucinations, Allergy/Immunology: Negative for hives, rash, and allergies, Endocrine: Negative for neck swelling, polydipsia, polyuria, polyphagia, and marked weight changes, Hematologic/Lymphatic: Negative for swollen nodes, abnormal bleeding, and unusual bruising. Abdomen/GI: Positive for abdominal pain, nausea, black/tarry stool, rectal bleeding, Negative for abdominal distension, bowel incontinence. Exam: 13:49 Constitutional: This is a well developed, well nourished patient who is awake, alert, kdr and in no acute distress. Head/Face: Normocephalic, atraumatic. Eyes: Pupils equal round and reactive to light, extra-ocular motions intact. Lids and lashes normal. Conjunctiva and sclera are non-icteric and not injected. Cornea within normal limits. Periorbital areas with no swelling, redness, or edema. Neck: Trachea midline, no thyromegaly or masses palpated, and no cervical lymphadenopathy. Supple, full range of motion without nuchal rigidity, or vertebral point tenderness. No Meningismus. Chest/axilla: Normal chest wall appearance and motion. Nontender with no deformity. No lesions are appreciated. Cardiovascular: Regular rate and rhythm with a normal S1 and S2. No gallops, murmurs, or rubs. Normal PMI, no JVD. No pulse deficits. Respiratory: Lungs have equal breath sounds bilaterally, clear to auscultation and percussion. No rales, rhonchi or wheezes noted. No increased work of breathing, no retractions or nasal flaring. Back: No spinal tenderness. No costovertebral tenderness. Full range of motion. Skin: Warm, dry with normal turgor. Normal color with no rashes, no lesions, and no evidence of cellulitis. MS/ Extremity: Pulses equal, no cyanosis. Neurovascular intact. Full, normal range of motion. Neuro: Awake and alert, GCS 15, oriented to person, place, time, and situation. Cranial nerves II-XII grossly intact. Motor strength 5/5 in all extremities. Sensory grossly intact. Cerebellar exam normal. Normal gait. Psych: Awake, alert, with orientation to person, place and time. Behavior, mood, and affect are within normal limits. 13:49 Abdomen/GI: Inspection: abdomen appears normal, Bowel sounds: active, all quadrants, diminished, Palpation: soft, mild abdominal tenderness, in the right lower quadrant and left lower quadrant, mass, is not appreciated, Rectal exam: the exam is deferred. Vital Signs: 02/09 13:01 BP 108 / 55; Pulse 90; Resp 16; Temp 97.8(TE); Pulse Ox 99% on R/A; Weight 72.57 kg; ss Height 5 ft. 1 in. (154.94 cm); Pain 8/10; 13:46 BP 101 / 66; Pulse 80; Resp 15 S; Pulse Ox 99% on R/A; ca1 14:32 BP 110 / 76; Pulse 82; Resp 15 S; Pulse Ox 100% ; ca1 16:29 BP 110 / 76; Pulse 88; Resp 18; Pulse Ox 100% on R/A; dh4 17:35 BP 137 / 98; Pulse 82; Resp 16 S; Pulse Ox 100% on R/A; ca1 13:01 Body Mass Index 30.23 (72.57 kg, 154.94 cm) ss MDM: 17:51 Patient medically screened. 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 kdr 02/10 13:49 Data reviewed: vital signs, nurses notes, lab test result(s), radiologic studies. kdr Counseling: I had a detailed discussion with the patient and/or guardian regarding: the historical points, exam findings, and any diagnostic results supporting the discharge/admit diagnosis, lab results, radiology results, the need for outpatient follow up. 02/09 14:20 Order name: Basic Metabolic Panel; Complete Time: 17:49 em 02/09 14:20 Order name: CBC with Diff; Complete Time: 17:49 em 02/09 14:20 Order name: Hepatic Function; Complete Time: 17:49 em 02/09 14:20 Order name: Lipase; Complete Time: 17:49 em 02/09 15:00 Order name: Urine Dipstick--Ancillary (enter results); Complete Time: 16:06 em02/09 15:03 Order name: Urine --Ancillary (enter results); Complete Time: 16:06 em02/09 14:20 Order name: IV Saline Lock; Complete Time: 16:38 em 02/09 14:20 Order name: Labs collected and sent; Complete Time: 16:38 em 02/09 14:20 Order name: Urine Dipstick-Ancillary (obtain specimen); Complete Time: 14:59 em 02/09 14:20 Order name: Urine Test (obtain specimen); Complete Time: 14:59 em 02/09 14:20 Order name: CT Abd/Pelvis - PO and IV Contrast; Complete Time: 17:49 em 02/09 17:47 Order name: Manual Differential; Complete Time: 17:49 EDMS Administered Medications: 02/09 16:55 Drug: Demerol 50 mg {Note: RASS 0.} Route: IVP; Site: right antecubital; ca1 18:00 Follow up: Response: No adverse reaction; Pain is unchanged, physician notified; RASS: ca1 Alert and Calm (0) 18:04 Drug: Demerol 50 mg {Note: rass 0.} Route: IVP; Site: right antecubital; ca1 18:30 Follow up: Response: No adverse reaction; Pain is decreased; RASS: Alert and Calm (0) ca1 Disposition: 02/10/20 17:51 Discharged to Home. Impression: Abdominal and pelvic pain. - Condition is Stable. - Discharge Instructions: Abdominal Pain, Adult, [id number]. - Prescriptions for Tramadol 50 mg Oral Tablet - take 1 tablet by ORAL route every 8 hours Take one or two tablets every six hours for pain; 20 tablet. - Medication Reconciliation Form, Thank You Letter, Prescription Opioid Use form. - Follow up: Private Physician; When: 2 - 3 days; Reason: If symptoms return, Further diagnostic work-up, Recheck today's complaints, Continuance of care, Re-evaluation by your physician. - Problem is an acute exacerbation. - Symptoms have improved. Signatures: Dispatcher [employer] EDNC Elliott Lange MD MD kdr Rodolfo Tomlin RN RN em Sally Calderón RN RN ss Archana Brothers RN RN ca1 Corrections: (The following items were deleted from the chart) 18:34 17:51 02/10/2020 17:51 Discharged to Home. Impression: Abdominal and pelvic pain. ca1 Condition is Stable. Forms are Medication Reconciliation Form, Thank You Letter, Antibiotic Education, Prescription Opioid Use. Follow up: Private Physician; When: 2 - 3 days; Reason: If symptoms return, Further diagnostic work-up, Recheck today's complaints, Continuance of care, Re-evaluation by your physician. Problem is an acute exacerbation. Symptoms have improved. kdr
--- NOTE | 2020-02-10 17:52 | ER ---
Nurse's Notes [facility] Name: Patsy Danielle Age: 49 yrs Sex: Female : 1970 Arrival Date: 02/10/2020 Time: 12:50 Bed 19 Private MD: Diagnosis: Abdominal and pelvic pain Presentation: 02/09 13:01 Chief complaint: Patient states: Bloody stools x 4-5 days. Coronavirus screen: Proceed ss with normal triage. Patient denies a cough. Patient denies shortness of breath or difficulty breathing. Patient denies measured and/or subjective temperature greater than 100.4F prior to today's visit. Patient denies travel on a cruise ship or to a country the [facility] currently lists as an affected area. Patient denies contact with known and/or suspected case of COVID-19. Ebola Screen: Patient denies exposure to infectious person. Patient denies travel to an Ebola-affected area in the 21 days before illness onset. Initial Sepsis Screen: Does the patient meet any 2 criteria? No. Patient's initial sepsis screen is negative. Does the patient have a suspected source of infection? No. Patient's initial sepsis screen is negative. Risk Assessment: Do you want to hurt yourself or someone else? Patient reports no desire to harm self or others. Onset of symptoms is unknown. 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 N/A - Hysterectomy ca1 Historical: - Allergies: 13:04 Ceftriaxone Sodium; ss 13:04 Cephalexin Monohydrate; ss 13:04 Codeine; ss 13:04 Erythromycin; ss 13:04 hydroxyzine HCl; ss 13:04 Hydroxyzine Pamoate; ss 13:04 metoclopramide HCl; ss 13:04 Morphine; ss 13:04 Naproxen; ss 13:04 Ondansetron HCl; ss 13:04 Phenergan; ss 13:04 QUINOLONES; ss 13:04 Sulfa (Sulfonamide Antibiotics); ss 13:04 SUMATRIPTAN; ss 13:04 Sumatriptan Succinate; ss 13:04 Tramadol HCl; ss 13:04 [id number] Antimigraine Agents; ss 13:04 Lyrica; ss 13:04 GABAPENTIN; ss - PMHx: 13:04 Angina; Anxiety; Back pain; CHF; Chronic pain; Migraines; palpitations; Pneumonia; ss - Immunization history:: Adult Immunizations up to date. - Social history:: Smoking status: Patient denies any tobacco usage or history of. Screenin:45 Abuse screen: Denies threats or abuse. Denies injuries from another. Nutritional ca1 screening: No deficits noted. Tuberculosis screening: No symptoms or risk factors identified. Fall Risk IV access (20 points). Assessment: 13:45 General: Appears in no apparent distress. comfortable, Behavior is calm, cooperative, ca1 appropriate for age. Pain: Complains of pain in right lower quadrant and left lower quadrant Pain does not radiate. Pain currently is 6 out of 10 on a pain scale. Pain began 5 days Is intermittent. Neuro: Level of Consciousness is awake, alert, obeys commands, Oriented to person, place, time, situation, Appropriate for age. Cardiovascular: Heart tones S1 S2 present Capillary refill < 3 seconds Patient's skin is warm and dry. Respiratory: Airway is patent Respiratory effort is even, unlabored, Respiratory pattern is regular, symmetrical, Breath sounds are clear bilaterally. GI: Abdomen is round non-distended, Bowel sounds present X 4 quads. Reports diarrhea, bloody stool. : No signs and/or symptoms were reported regarding the genitourinary system. EENT: No signs and/or symptoms were reported regarding the EENT system. Derm: Skin is intact, is healthy with good turgor, Skin is pink, warm \T\ dry. Musculoskeletal: Circulation, motion, and sensation intact. Capillary refill < 3 seconds. 14:40 Reassessment: Patient appears in no apparent distress at this time. Patient and/or ca1 family updated on plan of care and expected duration. Pain level reassessed. Patient is alert, oriented x 3, equal unlabored respirations, skin warm/dry/pink. 15:30 Reassessment: Patient appears in no apparent distress at this time. Patient is alert, ca1 oriented x 3, equal unlabored respirations, skin warm/dry/pink. 16:39 Reassessment: Patient appears in no apparent distress at this time. Patient and/or ca1 family updated on plan of care and expected duration. Pain level reassessed. Patient is alert, oriented x 3, equal unlabored respirations, skin warm/dry/pink. 17:35 Reassessment: Patient appears in no apparent distress at this time. Patient and/or ca1 family updated on plan of care and expected duration. Pain level reassessed. Patient is alert, oriented x 3, equal unlabored respirations, skin warm/dry/pink. 18:33 Reassessment: Patient appears in no apparent distress at this time. Patient is alert, ca1 oriented x 3, equal unlabored respirations, skin warm/dry/pink. Patient states feeling better. Vital Signs: 13:01 BP 108 / 55; Pulse 90; Resp 16; Temp 97.8(TE); Pulse Ox 99% on R/A; Weight 72.57 kg; ss Height 5 ft. 1 in. (154.94 cm); Pain 8/10; 13:46 BP 101 / 66; Pulse 80; Resp 15 S; Pulse Ox 99% on R/A; ca1 14:32 BP 110 / 76; Pulse 82; Resp 15 S; Pulse Ox 100% ; ca1 16:29 BP 110 / 76; Pulse 88; Resp 18; Pulse Ox 100% on R/A; dh4 17:35 BP 137 / 98; Pulse 82; Resp 16 S; Pulse Ox 100% on R/A; ca1 13:01 Body Mass Index 30.23 (72.57 kg, 154.94 cm) ED Course: 12:50 Patient arrived in ED. as 13:03 Triage completed. ss 13:04 Arm band placed on left wrist. ss 13:45 Archana Brothers, RN is Primary Nurse. ca1 13:45 Patient has correct armband on for positive identification. Bed in low position. Call ca1 light in reach. Side rails up X 1. Pulse ox on. NIBP on. Warm blanket given. 14:35 No provider procedures requiring assistance completed. Missed attempt(s): 22 gauge in ca1 right antecubital area. Bleeding controlled, band aid applied, catheter tip intact. 14:42 Missed attempt(s): 22 gauge in right forearm. Bleeding controlled, band aid applied, ca1 catheter tip intact. 15:17 Elliott Lange MD is Attending Physician. kdr 16:43 Inserted saline lock: 18 gauge in right antecubital area, using aseptic technique. US aa5 guided IV, per Dr. Lange. 17:08 CT Abd/Pelvis - PO and IV Contrast In Process Unspecified. EDMS 18:33 IV discontinued, intact, bleeding controlled, No redness/swelling at site. Pressure ca1 dressing applied. Administered Medications: 16:55 Drug: Demerol 50 mg {Note: RASS 0.} Route: IVP; Site: right antecubital; ca1 18:00 Follow up: Response: No adverse reaction; Pain is unchanged, physician notified; RASS: ca1 Alert and Calm (0) 18:04 Drug: Demerol 50 mg {Note: rass 0.} Route: IVP; Site: right antecubital; ca1 18:30 Follow up: Response: No adverse reaction; Pain is decreased; RASS: Alert and Calm (0) ca1 Outcome: 17:51 Discharge ordered by MD. kdr 18:33 Discharged to home ambulatory. ca1 18:33 Condition: stable 18:33 Discharge instructions given to patient, Instructed on discharge instructions, follow up and referral plans. no drinking with medication, no driving heavy equipment, medication usage, Demonstrated understanding of instructions, follow-up care, medications, Prescriptions given X 1. 18:34 Patient left the ED. ca1 Signatures: Dispatcher [employer] EDNH Elliott Lange MD MD kdr Martinez, Amelia as Calderon, Audri, RN RN aa5 Sally Calderón RN RN ss Archana Brothers RN RN [facility] Jim Jon [facility] Corrections: (The following items were deleted from the chart) 16:48 16:43 Inserted saline lock: 18 gauge in right antecubital area, using aseptic aa5 technique. US guided IV aa5
[2020-02-10 18:45] VITALS: TEMP 97.8
[2020-02-10 18:47] VITALS: O2SAT 100
[2020-02-10 18:50] VITALS: BP 137/98
== END 2020-02-10 18:34 | disposition home or self-care (01) ==
LOC: ER 12:48
DX: R10.2 Pelvic and perineal pain (principal); Z88.2 Allergy status to sulfonamides; Z88.3 Allergy status to other anti-infective agents; Z88.5 Allergy status to narcotic agent; Z88.6 Allergy status to analgesic agent; Z88.8 Allergy status to other drugs, medicaments and biological substances
CPT/HCPCS: 85025; 80048; 36415; 81025; 80076; 81003; 83690; 74177; 96374; 99284; Q9967; J2175 ×2

== ENCOUNTER 2020-09-12 11:32 | Emergency (ER) | payer BC ==
--- OUTSIDE RECORDS SUMMARY | 2020-09-12 11:34 | XMS REPORT | Continuity of Care Document ---
:1970 Author Organization [facility] t Address [address] [place] [address] Care Team Providers Name Role Phone YOVANI [...] [facility] [place] malignant neoplasm Physic archie Mother Family history of [facility] [place] thyroid disease Physician s Mother Family history of [facility] [place] heart disease Physicians Father Family history of [facility] [place] thyroid disease Physician s Father Family history of [facility] [place] heart disease Physicians Social History Smoking Status Start Date Stop Date Source Ex-smoker (finding) [facility] [place] [facility] Medications Ordered Filled Start Stop Current [...] nivers HCl POWD HCl POWD [facility] [place] [facility] Flexeril 10 Flexeril 10 Yes U nivers MG TABS MG TABS [facility] [place] [facility] CeleBREX CeleBREX Yes Univers CAPS CAPS [facility] [place] [facility] Zanaflex Zanaflex Yes Univers TABS TABS [facility] [place] [facility] Esgic CAPS Esgic CAPS Yes Uni vers [facility] [place] [facility] Ambien 10 Ambien 10 Yes Unive rs MG Oral MG Oral ity of Tablet Tablet [place] [facility] Stadol SOLN Stadol SOLN Yes U nivers [facility] [place] [facility] Tylenol Tylenol Yes Univers with with ity of Codeine #4 Codeine #4 [place] as TABS TABS Physici ans [place]ain SOLN [place] SOLN Yes U nivers [facility] [place] [facility] ans levoFLOXaci levoFLOXaci Yes U nivers n TABS n TABS [facility] [place] [facility] ans Vital Signs Vital Name Observation Time Observation Value Comments Source Systolic blood 2019-11-06 150 mm[Hg] Location: [facility] 15:11:00 Position: [place] [facility] Sitting Diastolic blood 2019-11-06 103 mm[Hg] Location: [facility] 15:11:00 Position: [place] [facility] Sitting Body height 2019-11-06 61 [in_us] [facility] 15:11:00 [place] [facility] Weight 2019-11-06 160 [lb_av] [facility] 15:11:00 [place] [facility] s Body mass index 2019-11-06 30.23 kg/m2 [place] o f (BMI) [Ratio] 15:11:00 [place] [facility] Body temperature 2019-11-06 97.8 [degF] Method: Oral [facility] 15:11:00 [place] [facility] Heart Rate 2019-11-06 68 /min [facility] 15:11:00 [place] [facility] BP Systolic 2018-12-20 126 mm[Hg] Location: [facility] 10:34:00 Position: [place] Physician s Sitting BP Diastolic 2018-12-20 91 mm[Hg] Location: [facility] 10:34:00 Position: [place] [facility] Sitting Height 2018-12-20 61 [in_us] [facility] 10:34:00 [place] [facility] Weight 2018-12-20 163 [lb_av] [facility] 10:34:00 [place] [facility] Body Mass Index 2018-12-20 30.8 kg/m2 University o f Calculated 10:34:00 [place] [facility] Heart Rate 2018-12-20 86 /min [facility] 10:34:00 [place] [facility] Procedures Procedure Date / Time Performing Clinician Source Performed [H] Culture Sinus w/GS 2019-11-06 00:00[facility]00 [facility] of Hysterectomy [facility] Physicians History of Cholecystectomy Unive rsity [facility] Physicians History of Appendectomy Universi ty [facility] Physicians History of Rhinoplasty [facility] Physicians History of Tonsillectomy Univers ity [facility] Physicians History of Back Surgery Universi ty [facility] Physicians History of Knee Surgery [facility] Physicians [facility] of [facility] [facility] History of Carpal tunnel [facility] surgery Physicians History of Breast Surgery Univer [facility] Reduction Procedure Physicians History of Neck Surgery Universi [facility] Physicians Encounters Start End Encounter Admission Attending Care Care Encounter Source Date/Time Date/Time Type Type Clinicians Facility Department ID 2019-11-06 2019-11-06 Appointmen ERIK PINA [facility]tor[facility] [id number] [facility] 15:30:00 15:30:00 t; SAI PINA M.D. yngology - [facility] [employer] ans 2018-12-20 2018-12-20 Appointmen ERIK PINA [facility] [id number] Univers 10:15:00 10:15:00 t; [facility] Results This patient has no known results.
[2020-09-12 12:29] LABS: Basophils % 1.2 % (0-1.3); Hematocrit 37.7 % (36.0-45.0); Lymphocytes % 27.6 % (15.3-44.8); MPV 7.6 fL (7.6-11.3); Protime INR 1.03; RBC Red Blood Cell Count 4.19 M/uL (3.86-4.86)
[2020-09-12] MEDS ORDERED: ASPIRIN 81 MG CHEWABLE TABLET ONE (12:39)
[2020-09-12] MEDS ORDERED: HYDROCODONE/APAP 7.5/325 MG TAB ONE (12:40)
--- NOTE | 2020-09-12 12:45 | RAD REPORT ---
EXAM DESCRIPTION: RAD - Chest Single View - 09/12/2020 12:28 pm CLINICAL HISTORY: CHEST PAIN COMPARISON: Two view chest January 2017 TECHNIQUE: AP portable chest image was obtained 09/12/2020 12:28 pm . FINDINGS: Right-sided PICC line is in place with the tip in the right atrium. No abnormal bend or ki nk of the tubing. No dense mass or consolidation interstitial markings match comparison. Heart size and pulmonary vascu lature within normal limits. No measurable pleural effusion and no pneumothorax. No acute bony abnorm ality seen. No acute aortic findings suspected. IMPRESSION: No acute cardiopulmonary process. Right-side PICC line in place with tip in the right atrium. No abnormal bend or kink of the tubing.
[2020-09-12 12:46] LABS: ALT/SGPT 22 U/L (12-78); AST/SGOT 38 U/L (15-37); Albumin 3.2 g/dL (3.4-5.0); Alkaline Phosphatase 186 U/L (45-117); BUN Blood Urea Nitrogen 17 mg/dL (7-18); Bicarbonate 26 mmol/L (21-32); Bilirubin Direct < 0.1 mg/dL (0-0.2); Bilirubin Total 0.2 mg/dL (0.2-1.0); Glucose Level 102 mg/dL (74-106); Magnesium 2.3 mg/dL (1.8-2.4); NT PRO-BNP 107 pg/mL (<125); Potassium 4.1 mmol/L (3.5-5.1); Protein, Total 7.3 g/dL (6.4-8.2); Sodium Level 139 mmol/L (136-145); Troponin (Emerg Dept Use Only) < 0.02 ng/mL (0.0-0.045)
--- NOTE | 2020-09-12 13:12 | ER ---
Nurse's Notes [facility] Name: Patsy Danielle Age: 50 yrs Sex: Female : 1970 Arrival Date: 09/12/2020 Time: 11:33 Bed 18 Private MD: Diagnosis: Other chest pain Presentation: 09/12 11:42 Chief complaint: Patient states: RUBIO PICC, x1 month, last 2 days when pushing Ancef jl7 reports left sided chest pain and started radiating down left arm today. Coronavirus screen: Client denies travel out of the [place] in the last 14 days. At this time, the client does not indicate any symptoms associated with coronavirus-19. Ebola Screen: No symptoms or risks identified at this time. Initial Sepsis Screen: Does the patient meet any 2 criteria? No. Patient's initial sepsis screen is negative. Does the patient have a suspected source of infection? No. Patient's initial sepsis screen is negative. Risk Assessment: Do you want to hurt yourself or someone else? Patient reports no desire to harm self or others. Onset of symptoms was September 10, 2020. Care prior to arrival: None. Transition of care: patient was not received from another setting of care. 11:42 Method Of Arrival: Ambulatory jl7 11:42 Acuity: VICK 2 jl7 Triage Assessment: 11:47 General: Appears in no apparent distress. uncomfortable, Behavior is cooperative, jl7 anxious. Pain: Complains of pain in anterior aspect of left upper chest Pain radiates to left arm Pain currently is 7 out of 10 on a pain scale. Cardiovascular: Patient's skin is warm and dry. 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 - Hysterectomy jl7 Historical: - Allergies: 11:47 Ceftriaxone Sodium; jl7 11:47 Cephalexin Monohydrate; jl7 11:47 Codeine; jl7 11:47 Erythromycin; jl7 11:47 GABAPENTIN; jl7 11:47 hydroxyzine HCl; jl7 11:47 Hydroxyzine Pamoate; jl7 11:47 Lyrica; jl7 11:47 metoclopramide HCl; jl7 11:47 Morphine; jl7 11:47 Naproxen; jl7 11:47 Ondansetron HCl; jl7 11:47 Phenergan; jl7 11:47 QUINOLONES; jl7 11:47 Sulfa (Sulfonamide Antibiotics); jl7 11:47 SUMATRIPTAN; jl7 11:47 Sumatriptan Succinate; jl 11:47 Tramadol HCl; jl7 11:47 [id number] Antimigraine Agents; jl7 - PMHx: 11:47 Angina; Anxiety; Back pain; CHF; Chronic pain; Migraines; palpitations; Pneumonia; jl7 - PSHx: 11:47 Hysterectomy; Cholecystectomy; Appendectomy; back; jl7 - Immunization history:: Adult Immunizations up to date. - Social history:: Smoking status: Patient denies any tobacco usage or history of. Screenin:54 Abuse screen: Denies threats or abuse. Denies injuries from another. Nutritional ca1 screening: No deficits noted. Tuberculosis screening: No symptoms or risk factors identified. Fall Risk IV access (20 points). Assessment: 11:50 General: Appears in no apparent distress. comfortable, Behavior is calm, cooperative, ca1 appropriate for age. 11:50 Pain: Denies pain. Complains of pain in anterior aspect of left upper chest Pain ca1 radiates to right trapezius, right scapular area and left arm Pain currently is 7 out of 10 on a pain scale. Quality of pain is described as pressure, Pain began 2-3 days ago. Is continuous. Neuro: Level of Consciousness is awake, alert, obeys commands, Oriented to person, place, time, situation. Cardiovascular: Heart tones S1 S2 present Capillary refill < 3 seconds Patient's skin is warm and dry. Rhythm is sinus rhythm. Respiratory: Airway is patent Respiratory effort is even, unlabored, Respiratory pattern is regular, symmetrical, Breath sounds are clear bilaterally. GI: Abdomen is flat, non-distended, Bowel sounds present X 4 quads. Abd is soft and non tender X 4 quads. : No signs and/or symptoms were reported regarding the genitourinary system. EENT: No signs and/or symptoms were reported regarding the EENT system. Derm: Skin is intact, is healthy with good turgor, Skin is pink, warm \T\ dry. Musculoskeletal: Circulation, motion, and sensation intact. Capillary refill < 3 seconds. 12:55 Reassessment: Patient appears in no apparent distress at this time. Patient and/or ca1 family updated on plan of care and expected duration. Pain level reassessed. Patient is alert, oriented x 3, equal unlabored respirations, skin warm/dry/pink. General: Appears. Vital Signs: 11:42 BP 113 / 69; Pulse 64; Resp 17; Temp 97.2; Pulse Ox 100% ; Weight 70.31 kg; Height 5 jl7 ft. 1 in. (154.94 cm); Pain 7/10; 12:32 BP 90 / 64; Pulse 79; Resp 17; Pulse Ox 97% ; ca1 13:18 BP 101 / 72; Pulse 64; Resp 16 S; Pulse Ox 100% on R/A; ca1 11:42 Body Mass Index 29.29 (70.31 kg, 154.94 cm) jl7 ED Course: 11:33 Patient arrived in ED. bp1 11:42 Archana Brothers, EVETTE is Primary Nurse. ca1 11:45 Triage completed. jl7 11:47 Arm band placed on right wrist. jl7 11:48 Richard Morejon PA is PHCP. cp 11:48 Tam Shore MD is Attending Physician. cp 11:48 EKG done, by ED staff, reviewed by Richard LY. jb1 11:54 Patient has correct armband on for positive identification. Placed in gown. Bed in low ca1 position. Call light in reach. Side rails up X2. quality assurance monitor final on. Pulse ox on. NIBP on. Warm blanket given. 11:55 No provider procedures requiring assistance completed. Patient maintains SpO2 ca1 saturation greater than 95% on room air. 12:22 Initial lab(s) drawn, by me, sent to lab. Accessed PICC line. Clean \T\ dry. Dressing ca1 intact. Good blood return. Flushes easily. 12:28 XRAY Chest (1 view) In Process Unspecified. EDMS 13:18 Pt came to the ER with PICC line, flushing well. Dressing, dry and intact. ca1 Administered Medications: 12:23 Drug: Hydrocodone-Acetaminophen (7.5 mg-325 mg) 1 tabs {Note: rass 0.} Route: PO; ca1 13:10 Follow up: Response: No adverse reaction; Pain is decreased; RASS: Alert and Calm (0) ca1 12:26 Drug: Aspirin Chewable Tablet 324 mg Route: PO; ca1 13:10 Follow up: Response: No adverse reaction ca1 Outcome: 13:11 Discharge ordered by . cp 13:22 Discharged to home ambulatory. ca1 13:22 Condition: stable 13:22 Discharge instructions given to patient, Instructed on discharge instructions, follow up and referral plans. Demonstrated understanding of instructions, follow-up care. 13:23 Patient left the ED. ca1 Signatures: Dispatcher [employer] EDMS Calos Marrufo1 Richard Morejon PA PA cp Leal, Jahala, RN RN jl7 Archana Brothers RN RN ca1 Josefina Zavala Rebecca, RN RN rb3 Corrections: (The following items were deleted from the chart) 12:01 11:55 Pain: Pain began ca1 ca1 13:18 12:32 BP 190 / 94; Pulse 79bpm; Resp 17bpm; Pulse Ox 97%; rb3 ca1 13:18 12:32 BP 90 / 94; Pulse 79bpm; Resp 17bpm; Pulse Ox 97%; ca1 ca1 13:23 13:18 PT has PICC from home ca1 ca1
--- NOTE | 2020-09-12 13:12 | EDPHYS ---
Physician Documentation [facility] Name: Patsy Danielle Age: 50 yrs Sex: Female : 1970 Arrival Date: 09/12/2020 Time: 11:33 Bed 18 Private MD: ED Physician Tam Shore HPI: 09/12 12:00 This 50 yrs old Female presents to ER via Ambulatory with complaints of Chest cp Pain, Shortness Of Breath, -PICC LINE. 12:00 The patient or guardian reports chest pain that is located primarily in the anterior cp chest wall, left. Onset: 2 day(s) ago. The pain radiates to the left arm, right side of chest. Associated signs and symptoms: Pertinent negatives: abdominal pain, cough, lower extremity pain, lower extremity swelling, shortness of breath, syncope. The chest pain is described as a heaviness. Duration: The patient or guardian reports multiple episodes, that are intermittent. Modifying factors: the symptoms are aggravated by after administering IV antibiotic Ancef and saline flush through right arm PICC line. 12:00 Severity of pain: in the emergency department the pain has improved. Patient reports cp running out of pain medications. 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 jl Historical: - Allergies: 11:47 Ceftriaxone Sodium; 11:47 Cephalexin Monohydrate; jl7 11:47 Codeine; jl7 11:47 Erythromycin; jl7 11:47 GABAPENTIN; jl7 11:47 hydroxyzine HCl; jl7 11:47 Hydroxyzine Pamoate; jl7 11:47 Lyrica; jl7 11:47 metoclopramide HCl; jl7 11:47 Morphine; jl7 11:47 Naproxen; jl7 11:47 Ondansetron HCl; jl7 11:47 Phenergan; jl7 11:47 QUINOLONES; jl7 11:47 Sulfa (Sulfonamide Antibiotics); jl7 11:47 SUMATRIPTAN; jl7 11:47 Sumatriptan Succinate; jl7 11:47 Tramadol HCl; jl7 11:47 [id number] Antimigraine Agents; jl7 - PMHx: 11:47 Angina; Anxiety; Back pain; CHF; Chronic pain; Migraines; palpitations; Pneumonia; jl7 - PSHx: 11:47 Hysterectomy; Cholecystectomy; Appendectomy; back; jl7 - Immunization history:: Adult Immunizations up to date. - Social history:: Smoking status: Patient denies any tobacco usage or history of. ROS: 12:05 Constitutional: Negative for body aches, chills, fever, poor PO intake. cp 12:05 Eyes: Negative for injury, pain, redness, and discharge. cp 12:05 ENT: Negative for ear pain, sore throat, difficulty swallowing, difficulty handling secretions. 12:05 Cardiovascular: Positive for chest pain, Negative for edema, palpitations. 12:05 Respiratory: Negative for cough, shortness of breath, wheezing. 12:05 Abdomen/GI: Negative for abdominal pain, nausea, vomiting, and diarrhea, constipation, black/tarry stool, rectal bleeding. 12:05 Back: Negative for radiated pain. 12:05 : Negative for urinary symptoms. 12:05 Neuro: Negative for altered mental status, headache, syncope, weakness. 12:05 All other systems are negative. Exam: 11:55 ECG was reviewed by the Attending Physician. cp 12:10 Constitutional: The patient appears in no acute distress, alert, awake, comfortable, cp non-diaphoretic, non-toxic, well developed, well nourished. 12:10 Head/Face: Normocephalic, atraumatic. cp 12:10 Eyes: Periorbital structures: appear normal, Conjunctiva: normal, no exudate, no injection, Sclera: no appreciated abnormality, Lids and lashes: appear normal, bilaterally. 12:10 ENT: External ear(s): are unremarkable, Nose: is normal, Mouth: Lips: normal, Oral mucosa: pink and intact, moist, Posterior pharynx: Airway: no evidence of obstruction, patent. 12:10 Neck: ROM/movement: is normal, is supple, without pain, no range of motions limitations. 12:10 Chest/axilla: Inspection: normal, Palpation: crepitus, is not appreciated, tenderness, is not appreciated. 12:10 Cardiovascular: Rate: normal, Rhythm: regular, Pulses: Pulses are 2+ in right radial artery and left radial artery. Edema: is not appreciated, JVD: is not appreciated. 12:10 Respiratory: the patient does not display signs of respiratory distress, Respirations: normal, no use of accessory muscles, no retractions, labored breathing, is not present, Breath sounds: are clear throughout, no decreased breath sounds, no stridor. 12:10 Abdomen/GI: Inspection: abdomen appears normal, Palpation: abdomen is soft and non-tender, in all quadrants. 12:10 Back: pain, is absent, ROM is normal. 12:10 Neuro: Orientation: to person, place \T\ time. Mentation: is normal, Motor: moves all fours, strength is normal. Vital Signs: 11:42 BP 113 / 69; Pulse 64; Resp 17; Temp 97.2; Pulse Ox 100% ; Weight 70.31 kg; Height 5 jl7 ft. 1 in. (154.94 cm); Pain 7/10; 12:32 BP 90 / 64; Pulse 79; Resp 17; Pulse Ox 97% ; ca1 13:18 BP 101 / 72; Pulse 64; Resp 16 S; Pulse Ox 100% on R/A; ca1 11:42 Body Mass Index 29.29 (70.31 kg, 154.94 cm) jl7 MDM: 11:56 Patient medically screened. cp 12:00 Differential diagnosis: acute myocardial infarction, acute pericarditis, chest wall cp pain, costochondritis, pericarditis, pleurisy, pneumonia, pneumothorax, pulmonary embolus. 13:10 The patient was given aspirin in the Emergency Department. cp 13:10 Data reviewed: vital signs, nurses notes, lab test result(s), EKG, radiologic studies, cp plain films, and as a result, I will discharge patient. 13:10 Test interpretation: by ED physician or midlevel provider: ECG, plain radiologic cp studies. Counseling: I had a detailed discussion with the patient and/or guardian regarding: the historical points, exam findings, and any diagnostic results supporting the discharge/admit diagnosis, lab results, radiology results, to return to the emergency department if symptoms worsen or persist or if there are any questions or concerns that arise at home. Special discussion: Based on the patient's history, exam, and Dx evaluation, there is no indication for emergent intervention or inpatient Tx. It is understood by the patient/guardian that if the Sx's persist or worsen they need to return immediately for re-evaluation. ED course: VSS. EKG negative for ST elevation and troponin negative. Very low suspicion for chest pain cause cardiac in nature. Will discharge to home for continued monitoring. 09/12 11:57 Order name: Basic Metabolic Panel; Complete Time: 12:49 cp 09/12 11:57 Order name: CBC with Diff; Complete Time: 12:49 cp 09/12 11:57 Order name: LFT's; Complete Time: 12:49 cp 09/12 11:57 Order name: Magnesium; Complete Time: 12:49 cp 09/12 11:57 Order name: NT PRO-BNP; Complete Time: 12:49 cp 09/12 11:57 Order name: PT-INR; Complete Time: 12:49 cp 09/12 11:57 Order name: Troponin (emerg Dept Use Only); Complete Time: 12:49 cp 09/12 11:57 Order name: XRAY Chest (1 view); Complete Time: 12:49 cp 09/12 12:50 Interpretation: Report reviewed. 09/12 11:57 Order name: EKG; Complete Time: 11:58 cp 09/12 11:57 Order name: Cardiac monitoring; Complete Time: 12:01 cp 09/12 11:57 Order name: EKG - Nurse/Tech; Complete Time: 12:01 cp 09/12 11:57 Order name: IV Saline Lock; Complete Time: 12:22 cp 09/12 11:57 Order name: Labs collected and sent; Complete Time: 12:22 cp 09/12 11:57 Order name: O2 Per Protocol; Complete Time: 12:01 cp 09/12 11:57 Order name: O2 Sat Monitoring; Complete Time: 12:01 cp EC:55 Rate is 64 beats/min. Rhythm is regular. NE interval is normal. QRS interval is normal. cp QT interval is normal. T waves are Inverted in lead aVR. Interpreted by me. Reviewed by me. Administered Medications: 12:23 Drug: Hydrocodone-Acetaminophen (7.5 mg-325 mg) 1 tabs {Note: rass 0.} Route: PO; ca1 13:10 Follow up: Response: No adverse reaction; Pain is decreased; RASS: Alert and Calm (0) ca1 12:26 Drug: Aspirin Chewable Tablet 324 mg Route: PO; ca1 13:10 Follow up: Response: No adverse reaction ca1 Disposition: 14:16 Co-signature as Attending Physician, Tam Shore MD. rn Disposition: 09/12/20 13:11 Discharged to Home. Impression: Other chest pain. - Condition is Stable. - Discharge Instructions: Nonspecific Chest Pain. - Medication Reconciliation Form, Thank You Letter, Antibiotic Education, Prescription Opioid Use form. - Follow up: Private Physician; When: 2 - 3 days; Reason: Recheck today's complaints. - Problem is new. - Symptoms have improved. Signatures: Dispatcher [employer] EDMS Tam Shore MD MD rn Richard Morejon PA PA cp Leal, Jahala, RN RN jl7 Archana Brothers RN RN ca1 Corrections: (The following items were deleted from the chart) 13:23 13:11 09/12/2020 13:11 Discharged to Home. Impression: Other chest pain. Condition is ca1 Stable. Forms are Medication Reconciliation Form, Thank You Letter, Antibiotic Education, Prescription Opioid Use. Follow up: Private Physician; When: 2 - 3 days; Reason: Recheck today's complaints. Problem is new. Symptoms have improved. cp
[2020-09-12 13:28] VITALS: TEMP 97.2
[2020-09-12 13:31] VITALS: BP 101/72; O2SAT 100
--- NOTE | 2020-09-13 07:26 | EKG ---
Test Date: 2020-09-12 Test Time: 11:48:56 Shell Shop Supervisor: KHURRAM MEASUREMENT RESULTS: Intervals: Rate: 64 ND: 134 QRSD: 76 QT: 410 QTc: 422 [place]: P: 37 ND: 134 QRS: 16 T: 59 INTERPRETIVE STATEMENTS: Normal sinus rhythm ST abnormality, possible digitalis effect Abnormal ECG Compared to ECG 11/18/2019 13:00:37 No significant changes Electronically Signed On 09-13-20 07:24:06 PUMP ROOM OPERATOR by Gordon Laureano
== END 2020-09-12 13:23 | disposition home or self-care (01) ==
LOC: ER 11:32
DX: R07.89 Other chest pain (principal); R06.02 Shortness of breath; I50.9 Heart failure, unspecified; F41.9 Anxiety disorder, unspecified; G89.29 Other chronic pain
CPT/HCPCS: 36415; 71045; 80048; 80076; 83735; 83880; 84484; 85025; 85610; 93005; 99285

== ENCOUNTER 2021-04-30 08:05 | Day surgery (SDC) | payer BC ==
--- NOTE | 2021-04-27 12:56 | EKG ---
Test Date: 2021-04-27 Test Time: 10:42:03 Mixer Wet Pour: DIANELYS MEASUREMENT RESULTS: Intervals: Rate: 57 ND: 126 QRSD: 78 QT: 400 QTc: 389 [place]: P: 24 ND: 126 QRS: 33 T: 15 INTERPRETIVE STATEMENTS: Sinus bradycardia Otherwise normal ECG Compared to ECG 09/12/2020 11:48:56 Sinus rhythm no longer present ST (T wave) deviation no longer present Electronically Signed On 04-27-21 12:56:08 CDT by Gordon Laureano
[2021-04-30] MEDS ORDERED: Ringers Lactate 1,000 ML IV ONE (08:38)
[2021-04-30] MEDS ORDERED: LIDOCAINE 2% MPF 5 ML VIAL ONE (08:51)
[2021-04-30] MEDS ORDERED: FENTANYL CITR 250 MCG/5 ML ONE (08:51)
[2021-04-30] MEDS ORDERED: dexAMETHasone 10 MG/ML VIAL ONE (08:51)
[2021-04-30] MEDS ORDERED: ONDANSETRON 4 MG/2 ML VIAL ONE (08:51)
[2021-04-30] MEDS ORDERED: MIDAZOLAM HCL 2 MG/2 ML INJ ONE (08:51)
[2021-04-30] MEDS ORDERED: ROCURONIUM 50 MG/5 ML VIAL IV ONE (08:51)
[2021-04-30] MEDS ORDERED: propofoL 200 MG/20 ML VIAL IV ONE (08:51)
[2021-04-30] MEDS ORDERED: KETOROLAC 30 MG/ML INJ ONE (09:10)
[2021-04-30] MEDS ORDERED: Mastisol Adhesive Liq ONE (09:16)
[2021-04-30] MEDS ORDERED: LIDOCAINE 1% MPF 30 ML VIAL ONE (09:45)
[2021-04-30] MEDS ORDERED: LIDOCAINE 1% W/EPI 1:100,000 MDV 20 ML VIAL ONE (09:45)
[2021-04-30] MEDS ORDERED: NA CHLORIDE 0.9% 500 ML ONE (09:46)
[2021-04-30] MEDS: OXYMETAZOLINE HCL 0.05% 15ML NAS ONE ×2 (10:15→10:50)
[2021-04-30] MEDS: EPINEPHRINE/PF 1 MG/ML AMP ONE ×2 (10:15→10:32)
[2021-04-30] MEDS ORDERED: OXYMETAZOLINE HCL 0.05% 15ML NAS ONE (10:16)
[2021-04-30] MEDS ORDERED: HYDRALAZINE HCL 20 MG/ML VIAL ONE (10:41)
[2021-04-30] MEDS: FENTANYL CITR 100 MCG/2 ML ONE ×6 (12:08→12:28)
[2021-04-30 12:12] VITALS: TEMP 96.9
--- NOTE | 2021-04-30 12:17 | P.BOP ---
Preoperative diagnosis: chronic right maxillary, ethmoid and frontal sinusitis Postoperative diagnosis: same Primary procedure: NE with frontal, anterior ethmoid, maxillary with image guidance Orchestra Leader: NONE,NONE Estimated blood loss: 100ml Specimen: right ethmoid culture. right sinus trimmings Findings: severe mucosal inflamation and granulation Anesthesia: General Complications: None Implants: Propel contour to FR, and Max. Propel mini to Max sinus and ethmoid Transferred to: Recovery Room Condition: Good
[2021-04-30 12:26] VITALS: O2SAT 98
[2021-04-30] MEDS ORDERED: PROMETHAZINE INJ 25 MG/ML AMP ONE (12:29)
[2021-04-30 12:32] VITALS: BP 113/96
[2021-04-30] MEDS ORDERED: MEPERIDINE HCL 25 MG/ML SYR ONE ×2 (13:03→13:15)
[2021-04-30] MEDS ORDERED: ACETAMINOPHEN 325 MG TABLET ONE (13:43)
--- NOTE | 2021-05-01 02:27 | OP ---
Date of Procedure: 04/30/2021 Surgeon: Alexandrea Velasco MD Preoperative Diagnosis: Chronic right maxillary, anterior, ethmoid, and frontal sinusitis. Postoperative Diagnoses: Chronic right maxillary, anterior, ethmoid, and frontal sinusitis. Procedures: Nasal endoscopy with right frontal sinusotomy, anterior ethmoidectomy, and maxillary antrostomy with use of extradural cranial CT navigation. Indication For Procedure: The patient had previous endoscopic sinus surgery, focusing on the right maxillary sinus, but had persistent severe infection, crusting, and drainage and re-presented, approximately 2 to 3 years after her initial procedure for re-evaluation. The patient has significant allergies to numerous antibiotic classes and was previously treated for an unrelated infection with IV antibiotics for approximately 4 to 6 weeks with persistent facial pain, drainage, crusting, and a CT scan demonstrating complete opacification of the right frontal, anterior, ethmoid sinuses, and partial opacification with obstruction of the ostiomeatal complex. The risks, benefits, and alternatives were discussed with the patient who agreed to proceed. Due to prior surgery and the severity of inflammation along with frontal sinus disease, the need for intraoperative image guidance was required to improve completeness and safety of the procedure. Description Of Procedure: The patient was brought to the operating room. She was placed under general anesthesia via oral endotracheal tube. The nasal hairs were trimmed. Nasal exam by anterior rhinoscopy was performed. The left side appeared normal. The right side appeared significantly inflamed with large areas of purulence within the middle meatus and middle nasal cavity. A culture was collected prior to packing of the nose with Afrin-soaked pledgets. Preparations were then made for image guidance. The Scopis system was set up in accordance with bundle sorter directions including placement of the electromagnetic field generator. The field was noted to have 99% lack of interference on query. The navigation reference was attached to the patient's forehead and secured with adhesive. The system was then registered to the presurgical CT scan in accordance with bundle sorter's instructions. Accuracy was at 0.33 mm, direct [id number] matching was used to confirm the accuracy of this device. The 0-degree endoscope was used to then perform a nasal endoscopy. The uncinate process had previously been partially removed with a small portion remaining superiorly. This was removed using the 90-degree Blakesley. The mucosa was noted to be severely inflamed and large amount of thick purulence was suctioned from the maxillary sinus. The 90-degree Blakesley was used to enlarging the maxillary antrostomy to create an improved opening. The mucosa of the sinus was severely inflamed, resulting in significant bleeding requiring packing with Afrin-soaked pledgets. After several minutes, these were removed, and additional dissection and irrigation of the sinus was undertaken. The overall appearance of the mucosa was somewhat granulated, rather than edematous, but was severely irritated. Attention was then turned to the ethmoid cavity. The ethmoid cells were identified and confirmed using the navigation suction. The curette, straight Blakesley, 45-degree Blakesley, and 90-degree Blakesley were used to dissect and remove inflamed tissues and bony fragments from the ethmoid. The packing was again used frequently throughout the procedure due to the friability of the mucosa. The 30-degree endoscope was then used to aid in dissection of the more superior ethmoid cells and the frontal sinus was cannulated and forcefully irrigated with copious saline resulting in significant amounts of purulence. Additional dissection of cells along the lamina was performed though the bone was hard and osteolytic due to the chronicity and severity of the infection. During dissection of some of these cells, a small defect was created in the lamina, though the orbital septum remained intact and there was no visualized intraorbital fatty tissue. Once the sinuses were adequately dissected and hemostasis was achieved, the propel steroid eluting stents were placed in order to try to decrease the amount of inflammation and reduce the chance of stenosis of the created drainage pathways. A Propel contour was placed within the frontal recess. A Propel mini was completely inserted into the maxillary sinus. A Propel contour was placed within the maxillary antrostomy and a final Propel mini was placed within the ethmoid cavity. A XeroGel dissolvable sinus packing was placed within the ethmoid cavity to aid in hemostasis. The nasal cavity and nasopharynx were thoroughly suctioned and hemostasis was ensured. The patient was then returned to care of Anesthesia for awakening and extubation, which proceeded without complication. The patient was transferred to the recovery room in stable condition. Disposition: The patient will be discharged home later today and follow up with Dr. Velasco in 10 days for initial postoperative debridement. Consideration may be made for in office replacement of the propel, approximately 1 month after surgery depending on the clinical appearance of the mucosa. The decision was made to forego any prescription for narcotics since the patient is currently under care for chronic back pain and has monthly narcotics prescribed by her PCP, Dr. Suarez. Due to the severity of the infection, a prescription for doxycycline was prescribed for the patient to start tomorrow. LEWIS Voice ID: [id number] Report ID: [id number] ROXI
== END 2021-04-30 13:37 | disposition home or self-care (01) ==
LOC: OR 08:05
PROVIDERS: ATTEND Otolaryngology
PROC: 099Q8ZZ Drainage of Right Maxillary Sinus, Via Natural or Artificial Opening Endoscopic (ICD-10-PCS; 2021-04-30)
PROC: 099S8ZZ Drainage of Right Frontal Sinus, Via Natural or Artificial Opening Endoscopic (ICD-10-PCS; 2021-04-30)
PROC: 8E09XBZ Computer Assisted Procedure of Head and Neck Region (ICD-10-PCS; principal; 2021-04-30 09:30)
DX: J32.0 Chronic maxillary sinusitis (principal); J32.2 Chronic ethmoidal sinusitis; Z20.822 Contact with and (suspected) exposure to COVID-19
CPT/HCPCS: 31276; 31254; 31267; 61782; 93005; 87070; 87205; 88305; 88311; 87077; 87186; U0002; J0360; J2704; J0171; J2550; J2250; J3010 ×2; J1100; J2175 ×2; J7120; J7040; J2405; 88304

== ENCOUNTER 2021-06-23 03:38 | Emergency (ER) | payer BC ==
[2021-06-23 04:08] LABS: Urine Blood Negative (Negative); Urine Glucose Negative (Negative); Urine Protein Negative (Negative); Urine Specific Gravity >=1.030 (1.005-1.030); Urine pH 5.5 (5.0-7.0)
[2021-06-23] MEDS ORDERED: NA CHLORIDE 0.9% 1,000 ML ONE (05:17)
[2021-06-23] MEDS ORDERED: PROMETHAZINE INJ 25 MG/ML AMP ONE (05:27)
[2021-06-23] MEDS ORDERED: FENTANYL CITR 100 MCG/2 ML ONE ×2 (05:32→06:51)
[2021-06-23 05:39] LABS: ALT/SGPT 56 U/L (12-78); AST/SGOT 27 U/L (15-37); Albumin 3.4 g/dL (3.4-5.0); Alkaline Phosphatase 178 U/L (45-117); BUN Blood Urea Nitrogen 17 mg/dL (7-18); Bicarbonate 27 mmol/L (21-32); Bilirubin Direct < 0.1 mg/dL (0-0.2); Bilirubin Total 0.3 mg/dL (0.2-1.0); Glucose Level 113 mg/dL (74-106); Lipase 67 U/L (73-393); Magnesium 2.4 mg/dL (1.8-2.4); NT PRO-BNP 57 pg/mL (<125); Potassium 4.1 mmol/L (3.5-5.1); Protein, Total 7.5 g/dL (6.4-8.2); Sodium Level 141 mmol/L (136-145); Troponin (Emerg Dept Use Only) < 0.02 ng/mL (0.0-0.045)
[2021-06-23 05:43] LABS: Absolute Lymphocytes (CBC) 2.4 K/uL (0.7-4.9); Basophils % 0.3 % (0-1.3); Hematocrit 39.4 % (36.0-45.0); MPV 8.4 fL (7.6-11.3); RBC Red Blood Cell Count 4.41 M/uL (3.86-4.86)
[2021-06-23 05:46] LABS: Protime INR 0.97
[2021-06-23 06:14] LABS: Barbiturates POSITIVE (NEGATIVE); Benzodiazepines POSITIVE (NEGATIVE); Cocaine NEGATIVE (NEGATIVE); METHAMPHETAM NEGATIVE (NEGATIVE); Methadone NEGATIVE (NEGATIVE); Opiates NEGATIVE (NEGATIVE); Phencyclidine NEGATIVE (NEGATIVE); THC Cannibis NEGATIVE (NEGATIVE)
--- NOTE | 2021-06-23 08:00 | RAD REPORT ---
EXAM DESCRIPTION: RAD - Knee Left 3 View - 06/23/2021 5:07 am CLINICAL HISTORY: Left knee pain status post injury FINDINGS: No fracture or dislocation is seen.
--- NOTE | 2021-06-23 08:23 | RAD REPORT ---
EXAM DESCRIPTION: CT - Head Brain Wo Cont - 06/23/2021 8:11 am CLINICAL HISTORY: Dizziness COMPARISON: 2014 TECHNIQUE: Computed axial tomography of the head was obtained. IV contrast was not requested. All CT scans are performed using dose optimization technique as appropriate and may include automated exposure control or mA/KV adjustment according to patient size. FINDINGS: An intracranial bleed is not seen . The ventricles are normal in caliber. No extra-axial fluid collection is noted. Opacification right maxillary, frontal and ethmoid sinuses. No fluid within the mastoids IMPRESSION: No acute intracranial abnormality is seen. If patient's symptoms persist MRI of the bra in would be recommended. Fluid in the sinuses may indicate acute sinusitis
--- NOTE | 2021-06-23 08:26 | RAD REPORT ---
EXAM DESCRIPTION: CT - Chest For Pe Angio - 06/23/2021 8:11 am CLINICAL HISTORY: Chest pain COMPARISON: None. TECHNIQUE: Dynamically enhanced axial 3 mm thick images of the chest were obtained during administra tion of <100> mL Isovue 370 IV contrast. Coronal and oblique reconstruction images were generated and reviewed. Exam utilizes a protocol for optimal evaluation of pulmonary arterial tree. Maximum intensity projections 3D imaging was utilized All CT scans are performed using dose optimization technique as appropriate and may include automated exposure control or mA/KV adjustment according to patient size. FINDINGS: Small amount of thrombus right lower lobe pulmonary artery. No additional thrombus is seen A thoracic aortic aneurysm is not noted. A pleural effusion is not seen. A pericardial effusion is not seen. A lung consolidation is not present. Mild left lower lobe opacities probably atelectasis IMPRESSION: Right lower lobe pulmonary embolism
--- NOTE | 2021-06-23 08:30 | RAD REPORT ---
EXAM DESCRIPTION: CT - Abdomen Pelvis W Contrast - 06/23/2021 8:11 am CLINICAL HISTORY: Abdominal pain COMPARISON: 2019 TECHNIQUE: Computed axial tomography of the abdomen pelvis was obtained. 100 cc Isovue-300 was admin istered intravenously. Oral contrast was not requested which limits evaluation of bowel. All CT scans are performed using dose optimization technique as appropriate and may include automated exposure control or mA/KV adjustment according to patient size. FINDINGS: The liver, spleen, pancreas, adrenal and kidneys appear unremarkable. There is no evidence of diverticulitis. Postsurgical changes involve lumbar spine. Hysterectomy. Cholecystectomy. Postsurgical changes left i nguinal hernia repair. Moderate amount stool within the colon IMPRESSION: Moderate amount stool within the colon
--- NOTE | 2021-06-23 08:59 | RAD REPORT ---
EXAM DESCRIPTION: Manuel Single View06/23/2021 5:07 am CLINICAL HISTORY: Shortness of breath COMPARISON: September 2020 FINDINGS: The lungs appear clear of acute infiltrate. The heart is normal size IMPRESSION: No acute abnormalities displayed
--- NOTE | 2021-06-23 09:35 | ER ---
Nurse's Notes [facility] Name: Patsy Danielle Age: 50 yrs Sex: Female : 1970 Arrival Date: 06/23/2021 Time: 03:44 Bed Ultrasound Private MD: Diagnosis: Pulmonary embolism without acute cor pulmonale Presentation: 06/23 03:44 Chief complaint: Patient states: MULTIPLE COMPLAINTS: DIZZINESS, SOB, BODY ACHES, SORE sj1 THROAT, CONGESTION, NAUSEA, HEMATEMESIS, PT REPORTS HAVING "DIARRHEA AND CONSTIPATION" RUQ AND LLQ PAIN. Coronavirus screen: Vaccine status: Patient reports receiving the 2nd dose of the covid vaccine. Ebola Screen: No symptoms or risks identified at this time. Initial Sepsis Screen: Does the patient meet any 2 criteria? No. Patient's initial sepsis screen is negative. Does the patient have a suspected source of infection? No. Patient's initial sepsis screen is negative. Risk Assessment: Do you want to hurt yourself or someone else? Patient reports no desire to harm self or others. Onset of symptoms was June 21, 2021. 03:44 Method Of Arrival: Ambulatory [facility] 03:44 Acuity: VICK 3 sj1 Triage Assessment: 03:48 General: Appears in no apparent distress. Behavior is calm, cooperative, appropriate sj1 for age. Pain: Complains of pain in GEN BODY ACHES. EENT: Reports difficulty swallowing pain in THROAT. Neuro: Reports dizziness. Cardiovascular: Reports chest pain, shortness of breath. Respiratory: Reports shortness of breath cough that is dry, Onset: The symptoms/episode began/occurred yesterday, the patient has mild shortness of breath. GI: Reports upper abdominal pain, diarrhea, nausea, vomiting. GI: Reports lower abdominal pain, RUQ AND LLQ. : No signs and/or symptoms were reported regarding the genitourinary system. Derm: No deficits noted. Musculoskeletal: No signs and/or symptoms reported regarding the musculoskeletal system. [employer]OR [employer]: 03:48 LMP N/A - Hysterectomy sj1 Historical: - Allergies: 03:48 Morphine; sj1 03:48 Ceftriaxone Sodium; sj1 03:48 Ondansetron HCl; sj1 03:48 Naproxen; sj1 03:48 Lyrica; sj1 03:48 GABAPENTIN; sj1 03:48 Erythromycin; sj1 03:48 Cephalexin Monohydrate; sj1 03:48 hydroxyzine HCl; sj1 03:48 Hydroxyzine Pamoate; sj1 03:48 SUMATRIPTAN; sj1 03:48 Sumatriptan Succinate; sj1 03:48 [id number] Antimigraine Agents; sj1 03:48 Sulfa (Sulfonamide Antibiotics); sj1 03:48 QUINOLONES; sj1 03:48 metoclopramide HCl; 1 - Home Meds: 03:48 Unable to obtain [Active]; sj1 - PMHx: 03:48 Pneumonia; palpitations; Migraines; Chronic pain; CHF; Back pain; Anxiety; Angina; sj1 - Immunization history:: Client reports receiving the 2nd dose of the Covid vaccine. - Social history:: Smoking status: Patient/guardian denies using tobacco, Patient/guardian denies using alcohol, street drugs. Screenin:50 Abuse screen: Denies threats or abuse. Nutritional screening: No deficits noted. On no kc4 prescribed diet Difficulty chewing/swallowing? No. Tuberculosis screening: No symptoms or risk factors identified. Never had TB. Possible symptoms: None Risk factors: None. Fall Risk None identified. Fall in past 12 months (25 points). No secondary diagnosis (0 pts). IV access (20 points). Ambulatory Aid- None/Bed Rest/Nurse Assist (0 pts). Gait- Normal/Bed Rest/Wheelchair (0 pts) Mental Status- Oriented to own ability (0 pts). Total Acosta Fall Scale indicates High Risk Score (45 or more points). Fall prevention measures have been instituted. Side Rails Up X 2. Assessment: 04:22 General: Appears in no apparent distress. unkempt, Behavior is calm, cooperative, kc4 appropriate for age. Pain: Complains of pain in generalized pain Quality of pain is described as aching, Pain began 1 day ago. Is continuous, Alleviated by nothing. Aggravated by Noted to be restless. Neuro: No deficits noted. GI: No deficits noted. : No deficits noted. EENT: No deficits noted. Derm: No deficits noted. Musculoskeletal: No deficits noted. 04:44 Cardiovascular: Rhythm is sinus rhythm Chest pain is denied. Respiratory: Airway is kc4 patent Respiratory effort is even, unlabored. 05:49 Respiratory: Breath sounds are clear bilaterally. kc4 08:28 Reassessment: Patient appears in no apparent distress at this time. No changes from tw2 previously documented assessment. Patient and/or family updated on plan of care and expected duration. Pain level reassessed. Patient is alert, oriented x 3, equal unlabored respirations, skin warm/dry/pink. 08:55 Reassessment: provider at bedside at this time. tw2 10:03 Reassessment: Patient appears in no apparent distress at this time. No changes from tw2 previously documented assessment. Patient and/or family updated on plan of care and expected duration. Pain level reassessed. Patient is alert, oriented x 3, equal unlabored respirations, skin warm/dry/pink. 10:04 Reassessment: pt states "i am not driving so its good". tw2 Vital Signs: 03:44 BP 102 / 66 RA Sitting (auto/reg); Pulse 61; Resp 18 S; Temp 98.3; Pulse Ox 100% on sj1 R/A; Weight 77.11 kg; Height 5 ft. 1 in. (154.94 cm); Pain 8/10; 04:22 BP 102 / 68; Pulse 96; Resp 20; Temp 98.6(O); Pulse Ox 100% on R/A; Pain 10/10; kc4 05:50 BP 101 / 76; Pulse 64; Resp 16; Temp 98.6; Pulse Ox 99% on R/A; Pain 5/10; kc4 08:29 BP 125 / 90; Pulse 64; Resp 17; Pulse Ox 100% on R/A; tw2 10:03 BP 120 / 80; Pulse 63; Resp 17; Pulse Ox 100% on R/A; tw2 03:44 Body Mass Index 32.12 (77.11 kg, 154.94 cm) 1 ED Course: 03:44 Patient arrived in ED. sj1 03:48 Triage completed. sj1 03:48 Arm band placed on left wrist. sj1 04:16 Lalo Rizvi MD is Attending Physician. 7 04:22 Isabelle Smith is Primary Nurse. kc4 04:40 SARS-COV-2 RT PCR Sent. bc5 04:44 Inserted saline lock: 20 gauge in left antecubital area, using aseptic technique. kc4 04:54 Troponin (emerg Dept Use Only) Sent. kc4 04:54 PT-INR Sent. kc4 04:54 NT PRO-BNP Sent. kc4 04:54 Magnesium Sent. kc4 04:54 LFT's Sent. kc4 04:54 CBC with Diff Sent. kc4 04:54 Basic Metabolic Panel Sent. kc4 05:03 Lipase Sent. kc4 05:07 XRAY Chest (1 view) In Process Unspecified. EDMS 05:07 Knee Left 3 View XRAY In Process Unspecified. EDMS 05:50 Resting quietly. kc4 05:50 Patient has correct armband on for positive identification. Placed in gown. Bed in low kc4 position. Call light in reach. Side rails up X2. 05:50 No provider procedures requiring assistance completed. kc4 05:56 UDS Sent. kc4 07:00 Influenza Screen (a \\T\\ B) Sent. kc4 07:00 Rapid Strep Sent. kc4 07:04 David Jimenez PA is PHCP. jr8 07:09 Primary Nurse role handed off by Isabelle Smith tw2 07:09 Alla Mehta, RN is Primary Nurse. tw2 08:11 CT Head Brain wo Cont In Process Unspecified. EDMS 08:11 CT Chest For PE Angio In Process Unspecified. EDMS 08:11 CT Abd/Pelvis - IV Contrast Only In Process Unspecified. EDMS 09:30 US Extremity Venous W Compression Arpit In Process Unspecified. EDMS 09:34 Dhruv Rollins MD is Referral Physician. jr8 09:39 Attending Physician role handed off by Laol Rizvi MD kdr 09:39 Elliott Lange MD is Attending Physician. kdr 10:03 IV discontinued, intact, bleeding controlled, No redness/swelling at site. Pressure tw2 dressing applied. Administered Medications: 04:57 Drug: NS 0.9% 1000 ml Route: IV; Rate: 1000 ml; Site: left antecubital; kc4 05:56 Follow up: Response: No adverse reaction; IV Status: Completed infusion kc4 05:02 Drug: Phenergan (promethazine) 12.5 mg Route: IVP; Site: left antecubital; kc4 05:55 Follow up: Response: No adverse reaction kc4 05:14 Drug: fentaNYL (PF) 25 mcg Route: IVP; Site: left antecubital; kc4 05:55 Follow up: Response: No adverse reaction kc4 06:29 Drug: fentaNYL (PF) 25 mcg Route: IVP; Site: left antecubital; kc4 09:00 Follow up: Response: No adverse reaction; Pain is decreased tw2 09:55 Drug: [place] (HYDROcodone-acetaminophen) (7.5 mg-325 mg) 1 tabs {Note: RASS 0.} Route: tw2 PO; 10:04 Follow up: Response: No adverse reaction; RASS: Alert and Calm (0) tw2 Outcome: 09:34 Discharge ordered by . claudia 10:03 Discharged to home ambulatory. tw2 10:03 Condition: stable 10:03 Discharge instructions given to patient, Instructed on discharge instructions, follow up and referral plans. medication usage, Demonstrated understanding of instructions, follow-up care, medications, Prescriptions given X 1. 10:05 Patient left the ED. tw2 Signatures: Dispatcher [employer] EDMS Elliott Lange MD MD [facility] David Jimenez PA PA jr8 Alla Mehta RN RN tw2 Lalo Rizvi MD MD mh7 Isabelle Smith kc4 Zenia Pringle RN RN bc5 Halley Yen RN RN sj1 Corrections: (The following items were deleted from the chart) 03:51 03:48 Allergies: Codeine; sj1 sj1 03:51 03:48 Allergies: Tramadol HCl; sj1 sj1 03:55 03:44 Chief complaint: Patient states: MULTIPLE COMPLAINTS: DIZZINESS, SOB, BODY ACHES, sj1 SORE THROAT, CONGESTION, NAUSEA, HEMATEMESIS, PT REPORTS HAVING "DIARRHEA AND CONSTIPATION" sj1
--- NOTE | 2021-06-23 09:35 | EDPHYS ---
Physician Documentation [facility] Name: Patsy Danielle Age: 50 yrs Sex: Female : 1970 Arrival Date: 06/23/2021 Time: 03:44 Bed Ultrasound Private MD: ED Physician Elliott Lange HPI: 06/23 04:40 This 50 yrs old Female presents to ER via Ambulatory with complaints of mh7 Shortness Of Breath. 04:40 The patient has shortness of breath at rest, with light activity. Onset: The mh7 symptoms/episode began/occurred 2 day(s) ago. Duration: The symptoms are intermittent, with no pattern. The patient's shortness of breath is aggravated by nothing, is alleviated by nothing. 04:40 Associated signs and symptoms: Pertinent positives: dizziness, Body aches, sore throat, mh7 congestion, abdominal pain, Pertinent negatives: fever, loss of consciousness, nausea, numbness in extremities, visual changes, vomiting. 04:40 Severity of symptoms: At their worst the symptoms were moderate yesterday, in the [facility] emergency department the symptoms are unchanged. 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 - Hysterectomy sj1 Historical: - Allergies: 03:48 Morphine; sj1 03:48 Ceftriaxone Sodium; sj1 03:48 Ondansetron HCl; sj1 03:48 Naproxen; sj1 03:48 Lyrica; sj1 03:48 GABAPENTIN; sj1 03:48 Erythromycin; sj1 03:48 Cephalexin Monohydrate; sj1 03:48 hydroxyzine HCl; sj1 03:48 Hydroxyzine Pamoate; sj1 03:48 SUMATRIPTAN; sj1 03:48 Sumatriptan Succinate; sj1 03:48 [id number] Antimigraine Agents; sj1 03:48 Sulfa (Sulfonamide Antibiotics); sj1 03:48 QUINOLONES; sj1 03:48 metoclopramide HCl; sj1 - Home Meds: 03:48 Unable to obtain [Active]; sj1 - PMHx: 03:48 Pneumonia; palpitations; Migraines; Chronic pain; CHF; Back pain; Anxiety; Angina; sj1 - Immunization history:: Client reports receiving the 2nd dose of the Covid vaccine. - Social history:: Smoking status: Patient/guardian denies using tobacco, Patient/guardian denies using alcohol, street drugs. ROS: 04:40 Constitutional: Negative for fever, chills, and weight loss, Eyes: Negative for injury, mh7 pain, redness, and discharge, Neck: Negative for injury, pain, and swelling, Cardiovascular: Negative for chest pain, palpitations, and edema, Back: Negative for injury and pain, : Negative for injury, bleeding, discharge, and swelling. 04:40 Skin: Negative for injury, rash, and discoloration, Neuro: Negative for headache, weakness, numbness, tingling, and seizure, Psych: Negative for depression, anxiety, suicide ideation, homicidal ideation, and hallucinations, Allergy/Immunology: Negative for hives, rash, and allergies, Endocrine: Negative for neck swelling, polydipsia, polyuria, polyphagia, and marked weight changes, Hematologic/Lymphatic: Negative for swollen nodes, abnormal bleeding, and unusual bruising. 04:40 MS/extremity: Positive for Left knee pain after falling. Exam: 04:40 Constitutional: This is a well developed, well nourished patient who is awake, alert, mh7 and in no acute distress. Head/Face: Normocephalic, atraumatic. Eyes: Pupils equal round and reactive to light, extra-ocular motions intact. Lids and lashes normal. Conjunctiva and sclera are non-icteric and not injected. Cornea within normal limits. Periorbital areas with no swelling, redness, or edema. Neck: Trachea midline, no thyromegaly or masses palpated, and no cervical lymphadenopathy. Supple, full range of motion without nuchal rigidity, or vertebral point tenderness. No Meningismus. Chest/axilla: Normal chest wall appearance and motion. Nontender with no deformity. No lesions are appreciated. Cardiovascular: Regular rate and rhythm with a normal S1 and S2. No gallops, murmurs, or rubs. Normal PMI, no JVD. No pulse deficits. Respiratory: Lungs have equal breath sounds bilaterally, clear to auscultation and percussion. No rales, rhonchi or wheezes noted. No increased work of breathing, no retractions or nasal flaring. Abdomen/GI: Soft, non-tender, with normal bowel sounds. No distension or tympany. No guarding or rebound. No evidence of tenderness throughout. Back: No spinal tenderness. No costovertebral tenderness. Full range of motion. Skin: Warm, dry with normal turgor. Normal color with no rashes, no lesions, and no evidence of cellulitis. MS/ Extremity: Pulses equal, no cyanosis. Neurovascular intact. Full, normal range of motion. Neuro: Awake and alert, GCS 15, oriented to person, place, time, and situation. Cranial nerves II-XII grossly intact. Motor strength 5/5 in all extremities. Sensory grossly intact. Cerebellar exam normal. Normal gait. Psych: Awake, alert, with orientation to person, place and time. Behavior, mood, and affect are within normal limits. Vital Signs: 03:44 BP 102 / 66 RA Sitting (auto/reg); Pulse 61; Resp 18 S; Temp 98.3; Pulse Ox 100% on sj1 R/A; Weight 77.11 kg; Height 5 ft. 1 in. (154.94 cm); Pain 8/10; 04:22 BP 102 / 68; Pulse 96; Resp 20; Temp 98.6(O); Pulse Ox 100% on R/A; Pain 10/10; kc4 05:50 BP 101 / 76; Pulse 64; Resp 16; Temp 98.6; Pulse Ox 99% on R/A; Pain 5/10; kc4 08:29 BP 125 / 90; Pulse 64; Resp 17; Pulse Ox 100% on R/A; tw2 10:03 BP 120 / 80; Pulse 63; Resp 17; Pulse Ox 100% on R/A; tw2 03:44 Body Mass Index 32.12 (77.11 kg, 154.94 cm) [facility] MDM: 07:04 Patient medically screened. [facility] 08:50 Data reviewed: vital signs, nurses notes, lab test result(s), EKG, radiologic studies, [facility] CT scan, plain films. Data interpreted: Pulse oximetry: on room air is 100 %. Interpretation: normal. 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 09:32 ED course: Patient findings of CT. That she has a small right base thrombus consistent jr8 with pulmonary embolism. Patient is hemodynamically stable and has been 100% room air the entire time. No deep venous thrombosis of the lower extremities noted. No other acute findings on labs or other imaging studies. Based on this patient is safe to go home on Eliquis. Patient has insurance and will be able to afford the NOAC. Discussed with patient if she were to have an increase in shortness of breath or any other acute symptoms to come back immediately for further evaluation. Patient given plan at this time. Also discussed with patient that she needs to follow-up with pulmonology for further evaluation as to why she possibly could have gotten the pulmonary embolism.. 06/23 04:04 Order name: SARS-COV-2 RT PCR; Complete Time: 06:14 EDMS 06/23 04:08 Order name: Urine Dipstick-Ancillary; Complete Time: 04:47 EDMN 06/23 04:49 Order name: Basic Metabolic Panel; Complete Time: 06:14 [facility] 06/23 04:49 Order name: CBC with Diff; Complete Time: 06:14 [facility] 06/23 04:49 Order name: LFT's; Complete Time: 06:14 [facility] 06/23 04:49 Order name: Magnesium; Complete Time: 06:14 [facility] 06/23 04:49 Order name: NT PRO-BNP; Complete Time: 06:14 [facility] 06/23 04:49 Order name: PT-INR; Complete Time: 06:14 [facility] 06/23 04:49 Order name: Troponin (emerg Dept Use Only); Complete Time: 06:14 [facility] 06/23 04:50 Order name: Lipase; Complete Time: 06:14 [facility] 06/23 04:51 Order name: UDS; Complete Time: 06:26 [facility] 06/23 06:27 Order name: Influenza Screen (a \T\ B) [facility] 06/23 06:27 Order name: Rapid Strep [facility] 06/23 04:04 Order name: Urine Dipstick-Ancillary (obtain specimen); Complete Time: 04:40 em 06/23 04:49 Order name: XRAY Chest (1 view); Complete Time: 08:59 [facility] 06/23 04:49 Order name: EKG; Complete Time: 04:50 [facility] 06/23 04:52 Order name: Knee Left 3 View XRAY; Complete Time: 08:49 7 06/23 06:27 Order name: Influenza Screen (A ; Complete Time: 08:49 EDMS 06/23 06:27 Order name: Group A Streptococcus Rapid Sc; Complete Time: 08:49 EDMS 06/23 06:53 Order name: CT Head Brain wo Cont; Complete Time: 08:49 7 06/23 06:53 Order name: CT Chest For PE Angio; Complete Time: 08:49 7 06/23 06:53 Order name: CT Abd/Pelvis - IV Contrast Only; Complete Time: 08:49 7 06/23 07:48 Order name: Throat Culture EDMS 06/23 08:59 Order name: US Extremity Venous W Compression Arpit; Complete Time: 09:46 [facility] 06/23 04:49 Order name: Cardiac monitoring; Complete Time: 04:54 7 06/23 04:49 Order name: EKG - Nurse/Tech; Complete Time: 05:56 7 06/23 04:49 Order name: IV Saline Lock; Complete Time: 04:54 7 06/23 04:49 Order name: Labs collected and sent; Complete Time: 04:55 7 06/23 04:49 Order name: O2 Per Protocol; Complete Time: 04:55 7 06/23 04:49 Order name: O2 Sat Monitoring; Complete Time: 04:55 mh7 Administered Medications: 04:57 Drug: NS 0.9% 1000 ml Route: IV; Rate: 1000 ml; Site: left antecubital; kc4 05:56 Follow up: Response: No adverse reaction; IV Status: Completed infusion kc4 05:02 Drug: Phenergan (promethazine) 12.5 mg Route: IVP; Site: left antecubital; kc4 05:55 Follow up: Response: No adverse reaction kc4 05:14 Drug: fentaNYL (PF) 25 mcg Route: IVP; Site: left antecubital; kc4 05:55 Follow up: Response: No adverse reaction kc4 06:29 Drug: fentaNYL (PF) 25 mcg Route: IVP; Site: left antecubital; kc4 09:00 Follow up: Response: No adverse reaction; Pain is decreased tw2 09:55 Drug: [place] (HYDROcodone-acetaminophen) (7.5 mg-325 mg) 1 tabs {Note: RASS 0.} Route: tw2 PO; 10:04 Follow up: Response: No adverse reaction; RASS: Alert and Calm (0) tw2 Disposition: 06/24 00:47 Co-signature as Attending Physician, Elliott Lange MD I agree with the assessment and kdr plan of care. Disposition Summary: 06/23/21 09:34 Discharge Ordered Location: Home jr8 Problem: new jr8 Symptoms: have improved jr8 Condition: Stable jr8 Diagnosis - Pulmonary embolism without acute cor pulmonale jr8 Followup: jr8 - With: Dhruv Rollins MD - When: 2 - 3 days - Reason: Recheck today's complaints, Continuance of care, Re-evaluation by your physician Discharge Instructions: - Discharge Summary Sheet jr8 - Pulmonary Embolism jr8 Forms: - Medication Reconciliation Form jr8 - Thank You Letter jr8 - Antibiotic Education jr8 - Prescription Opioid Use jr8 Prescriptions: - Eliquis 5 mg Oral tablet - take 1 tablet by ORAL route 2 times per day; 60 tablet; Refills: 0, Product jr8 Selection Permitted - Eliquis 5 mg Oral tablet - take 2 tablet by ORAL route 2 times per day for 7 days; 28 tablet; Refills: 0, jr8 Product Selection Permitted Signatures: Dispatcher [employer] Elliott Jones MD MD [facility] Rodolfo Tomlin RN RN David Little PA PA jr8 Alla Mehta RN RN tw2 Lalo Rizvi MD MD [facility] Isabelle Smith [facility] Halley Yen RN RN sj1 Corrections: (The following items were deleted from the chart) 06/23 03:51 03:48 Allergies: Codeine; sj1 sj1 03:51 03:48 Allergies: Tramadol HCl; sj1 sj1
--- NOTE | 2021-06-23 09:42 | RAD REPORT ---
EXAM DESCRIPTION: USExtrem Venous W Compress Bil06/23/2021 9:30 am CLINICAL HISTORY: Leg swelling COMPARISON: none FINDINGS: The common femoral, superficial femoral, popliteal and posterior tibial veins bilaterally are compressible and demonstrate augmentation. Doppler demonstrates good flow. IMPRESSION: No evidence of deep venous thrombosis involving either lower extremity.
[2021-06-23] MEDS ORDERED: HYDROCODONE/APAP 7.5/325 MG TAB ONE (10:12)
[2021-06-23 10:15] VITALS: TEMP 98.6
[2021-06-23 10:17] VITALS: O2SAT 100
[2021-06-23 10:18] VITALS: BP 120/80
== END 2021-06-23 10:05 | disposition home or self-care (01) ==
LOC: ER 03:38
DX: I26.99 Other pulmonary embolism without acute cor pulmonale (principal); Z20.822 Contact with and (suspected) exposure to COVID-19; I50.9 Heart failure, unspecified; Z88.2 Allergy status to sulfonamides; Z88.3 Allergy status to other anti-infective agents; Z88.5 Allergy status to narcotic agent; Z88.6 Allergy status to analgesic agent; Z88.8 Allergy status to other drugs, medicaments and biological substances
CPT/HCPCS: 93005; 87070; 85025; 80048; 36415; 83735; 85610; 80076; 87081; 81003; 84484; 83690; 83880; 80307; 87804 ×2; 70450; 71275; 74177; 71045; 73562; 93970; U0003; Q9967; J2550; J3010 ×2; J7030

== ENCOUNTER 2024-10-01 09:57 | Day surgery (SDC) | payer BC, MEDICARE ==
[2024-09-27 09:55] LABS: Hematocrit 43.6 % (36.0-45.0); Hemoglobin 14.9 g/dL (12.0-15.0); Lymphocytes % 41.2 % (15.3-44.8); MCH 31.6 pg (27.0-35.0); MCHC 34.1 g/dL (32.0-36.0); MCV 92.8 fL (80-100); MPV 7.9 fL (7.6-11.3); Monocytes % 10.5 % (3.3-12.3); Neutrophils % 45.4 % (41.7-73.7); Platelets 281 thou/uL (152-406); Red Cell Distribution Width 13.7 % (12.1-15.2)
[2024-09-27 09:56] LABS: Absolute Eosinophils 0.2 K/uL (0-0.5); Absolute Lymphocytes (CBC) 2.7 K/uL (0.7-4.9); Absolute Monocytes 0.7 K/uL (0.1-1.3); Basophils % 0.6 % (0-1.3); Eosinophils % 2.3 % (0-4.4); Nucleated Red Blood Cells % 0.1 % (0-0)
[2024-09-27 10:06] LABS: Anion Gap 10.8 mEq/L (5.0-15.0); Potassium 4.8 mEq/L (3.5-5.1)
--- NOTE | 2024-09-27 15:06 | EKG ---
Test Date: 2024-09-27 Test Time: 10:25:22 [employer] Worker: SANDRA MEASUREMENT RESULTS: Intervals: Rate: 55 NJ: 140 QRSD: 78 QT: 416 QTc: 397 [place]: P: 54 NJ: 140 QRS: 10 T: 36 INTERPRETIVE STATEMENTS: Sinus bradycardia Otherwise normal ECG Compared to ECG 06/23/2021 05:24:24 Sinus rhythm no longer present T-wave abnormality no longer present Electronically Signed On 09-27-24 15:05:37 CREATIVE SERVICES SPECIALIST by Gerardo Dhillon
[2024-10-01] MEDS: Ringers Lactate 1,000 ML IV ONE (10:45)
[2024-10-01] MEDS ORDERED: LIDOCAINE 1% MPF 5 ML VIAL ONE ×2 (11:14→11:43)
[2024-10-01] MEDS ORDERED: dexAMETHasone 10 MG/ML VIAL ONE (11:14)
[2024-10-01] MEDS ORDERED: MIDAZOLAM HCL 2 MG/2 ML INJ ONE ×2 (11:15→11:30)
[2024-10-01] MEDS ORDERED: EPINEPHRINE 1 MG/ML VIAL ONE (11:15)
[2024-10-01] MEDS ORDERED: BUPIVACAINE 0.5% PF 10 ML VIAL ONE (11:16)
[2024-10-01] MEDS ORDERED: FENTANYL CITR 100 MCG/2 ML ONE ×2 (11:43→13:23)
[2024-10-01] MEDS ORDERED: propofoL 200 MG/20 ML VIAL IV ONE (11:43)
[2024-10-01] MEDS ORDERED: ROCURONIUM 50 MG/5 ML VIAL IV ONE (11:44)
[2024-10-01] MEDS: CLINDAMYCIN 900MG/D5W 900 MG/50 ML IVPB IV ONE (12:15)
[2024-10-01] MEDS: FENTANYL CITR 100 MCG/2 ML ONE (13:27)
[2024-10-01 16:25] VITALS: BP 97/77; TEMP 97; O2SAT 100
--- NOTE | 2024-10-02 01:44 | OP ---
Date of Procedure: 10/01/2024 Surgeon: Anirudh Ayala MD Preoperative Diagnosis: Right shoulder pain consistent with acromioclavicular joint to pathology. Postoperative Diagnosis: Right shoulder pain consistent with acromioclavicular joint to pathology. Procedure: Right distal clavicle excision. Estimated Blood Loss: Less than 10 mL. Complications: There were no complications. Indications For Operation: Ms. Danielle is a patient who came to see me with complaints of right shou lder pain. Pain was originally treated with various methods, did not have significant relief from an y of these. She may have some degree of cervical overlay. However, an injection which was performed in the acromioclavicular joint corresponds with MRI findings of inflammatory changes of the AC joint . She also has pain with crossed-arm adduction. Risks, benefits, and alternatives to distal clavicl e excision had been discussed with the patient. She states she understands things as presented and w ishes to proceed. Description Of Procedure: The patient was taken to the operating room, placed in supine position. S he previously had a block in the holding area. She was then placed in a beach chair position. All o f her positions was checked by Anesthesia. After this, her right upper extremity was then prepped an d draped in usual sterile fashion for the procedure. An anterior incision was made carefully through the skin and soft tissues near the palpable distal clavicle, which is somewhat prominent. This was taken down carefully through the skin and subcutaneous tissues only. Meticulous hemostasis being kieran ntained using Bovie electrocautery. Following this, it was used as a working window and the acromioc lavicular joint is quite prominent and easily palpable. After this, a small amount of deltoid was th en taken off the anterior acromion over the acromioclavicular joint and the distal end of the clavicl e. This was done using Bovie. It was then extended anteriorly and posteriorly over the clavicle to allow good visualization of the distal clavicle. Combination of Bovie and rongeur were then used to remove the intervening material within the clavicle and acromion giving a very well-defined distal cl avicle. A David was then placed inferior to the clavicle and a saw was then used to remove approx imately 1 cm of the distal clavicle including all bloodless portions. This is a one smooth cut. The clavicle was then removed using a rongeur and Bovie, care being taken to protect the inferior ligame nts. After this was irrigated and cross-arm adduction demonstrates there is no impaction between the acromion and distal clavicle, the overlying soft tissues were then closed using heavy Vicryl sutures . The skin was then closed and the patient was placed in a small Aquacel dressing, sling, awakened, taken to the recovery room in good condition. No complications. /MODL Voice ID: [id number] Report ID: [id number]
== END 2024-10-01 14:25 | disposition home or self-care (01) ==
LOC: OR 09:57
PROVIDERS: ATTEND Orthopaedic Surgery
PROC: 0PB90ZZ Excision of Right Clavicle, Open Approach (ICD-10-PCS; principal; 2024-10-01 12:00)
DX: M19.011 Primary osteoarthritis, right shoulder (principal); M25.511 Pain in right shoulder
CPT/HCPCS: 93005; 85025; 80048; 36415; 88305; 88311; 23120; J2704; J2003 ×2; J2250 ×2; J3010 ×2; J1100; J0171; J7120